=== PATIENT | female | born 1945 | race Caucasian/White ===

== ENCOUNTER → 2017-10-28 16:23 | Outpatient (CLI) | payer MEDICARE, SELFPAY ==
--- NOTE | 2017-10-28 16:31 | XR_ITS ---
XR knee LT 3V HISTORY: ITS.REASON: LT KNEE PAIN ORDERING PHYSICIAN: Josse Becerra MD PATIENT AGE: 72 years FINDINGS: Mild osteoarthritic changes are present involving all 3 compartments. No fracture or dislocation. Irregular sclerotic density is present involving the intramedullary region of the distal femur consistent with small bone infarction. IMPRESSION: Mild osteoarthritis of the left knee
== END ==
PROVIDERS: PCP Family Medicine; Visit Provider Family Medicine
DX: M25.562 Pain in left knee (principal)
CPT/HCPCS: 73562

== ENCOUNTER → 2018-03-29 10:32 | Outpatient (CLI) | payer MEDICARE, SELFPAY ==
--- NOTE | 2018-03-29 10:34 | MM_ITS ---
MM Dig screening mamm BI w/CAD ORDERING PHYSICIAN : Ward Gomez MD PATIENT AGE: 73 years GENDER: Female COMPARISON: Previous studies purged & no longer available [facility] Thus no previous studies for comparison . INDICATION: ITS.REASON: SCREENING. No hormones no new complaints. Family history. Paternal grandmother with breast cancer TECHNIQUE: Standard CC and MLO images were obtained. R2 CAD reviewed. CC nipple profile view both breast included FINDINGS: Low-density breast are less fatty replacement. No suspicious nor dominant mass either breast.. No architectural distortion No suspicious calcifications. . CAD computer review highlights no areas of concern either IMPRESSION: No areas of concern. Follow-up in one year. Low-density breast. Fatty replacement bilaterally with no suspicious findings. BI-RADS Category: 1 Negative RECOMMENDED FOLLOW-UP: 1YR 1 YEAR FOLLOW-UP (A letter has been sent to the patient regarding results of the study.)
== END ==
PROVIDERS: PCP Family Medicine; Visit Provider Family Medicine
DX: Z12.31 Encounter for screening mammogram for malignant neoplasm of breast (principal)
CPT/HCPCS: 77067

== ENCOUNTER → 2018-05-03 14:11 | Outpatient (CLI) | payer MEDICARE, SELFPAY ==
--- NOTE | 2018-05-03 14:12 | CA_ITS ---
PROCEDURE: 2-D M-mode and color Doppler study INDICATIONS FOR THE TEST: Chest pain COPD Heart Murmur Tobacco Smoking Palpitations Fatigue+ Syncope Edema Hypertension+Diabetes Mellitus Rheumatic Fever SOB+IRE[place] Obesity Hyperlipidemia+ Family History HD Additional History CAD PATIENT INFORMATION HEIGHT:61 WEIGHT:202 GENDER: Female B/P:145/66 2-D/M-MODE INTERPRETATION: 2-D MEASUREMENTS OBSERVED VALUES IN CMS Right Ventricular Dimension (RVDd) 2.1 Interventricular Septum (Thickness)(IVsd) 1.3 Left Ventricular Internal Dimensions(LVIDd) 4.9 Left Ventricular Posterior Wall (Thickness)(LVPWd) 1.2 Aortic Root 3.1 Aortic Cusp Separation 1.8 Left Atrial Dimensions (LAD) 3.9 2D 1. Left atrium is mildly enlarged, left ventricle is normal size, mild concentric left ventricular hypertrophy, visually estimated ejection fraction of 55% with no regional wall motion abnormality. 2. The right atrium and the ventricular normal size and contractility. 3. The aortic valve is minimally thickened and fibrosed. 4. The mitral valve has dense mitral annular calcification. 5. The tricuspid valve is grossly normal. 6. The pulmonic valve is poorly visualized. 7. No significant pericardial effusion noted. DOPPLER INTERROGATION: Doppler interrogation of the aortic, mitral and tricuspid valvular presence of mild mitral and tricuspid regurgitation, tricuspid regurgitation jet velocity is inadequate for calculation of the right ventricular systolic pressure, grade 2 diastolic dysfunction seen with tissue Doppler evidence of raised left atrial pressure. CONCLUSION: 1. Mildly enlarged left atrium, normal left ventricular size, mild concentric left ventricular hypertrophy, visually estimated ejection fraction 55% with no regional wall motion abnormality, grade 2 diastolic dysfunction seen with tissue Doppler evidence of raised left atrial pressure. 2. Mild mitral and tricuspid regurgitation 3. No significant pericardial effusion noted.
== END ==
PROVIDERS: PCP Family Medicine; Visit Provider Internal Medicine
DX: R94.31 Abnormal electrocardiogram [ECG] [EKG] (principal)
CPT/HCPCS: 93306

== ENCOUNTER → 2019-05-04 13:06 | Outpatient (CLI) | payer MEDICARE, SELFPAY ==
--- NOTE | 2019-05-04 13:28 | MM_ITS ---
PROCEDURE: MM DIG SCREENING MAMM BI W/CAD Patient Age:74Y CLINICAL INDICATION: SCREE PRETTY COMPARISON: CHW CT CHEST W/ CONTRAST from 01/22/2016 [facility] MM Dig screening mamm BI w/CAD from 03/29/2018 TECHNIQUE: Standard CC and MLO images were obtained. R2 CAD reviewed. FINDINGS: Diffuse fatty replacement with minimal residual fibroglandular elements. Low-density breast bilaterally which lend themselves to mammography evaluation/screening. No dominant nor suspicious mass. No suspicious calcifications. No architectural distortion: No significant change since prior studies. CAD computer review highlights no areas of concern either.. Bilateral follow-up 1 year recommended. IMPRESSION: Stable/negative bilateral mammogram. Bilateral follow-up1 year recommended Diffuse fatty replacement low-density breast. BI-RAD Category: 1 Negative FOLLOW-UP: 1YR 1 Year Follow-up (A letter has been sent to the patient regarding results of the study.) Dictated by: Deuce Morales MD 05/07/2019 14:27 Electronically signed by Deuce Morales MD in [place] 05/07/2019 14:27
== END ==
PROVIDERS: PCP Family Medicine; Visit Provider Family Medicine
DX: Z12.31 Encounter for screening mammogram for malignant neoplasm of breast (principal)
CPT/HCPCS: 77067

== ENCOUNTER → 2020-02-13 12:40 | Outpatient (CLI) | payer MEDICARE, SELFPAY ==
--- NOTE | 2020-02-13 12:49 | XR_ITS ---
PROCEDURE: XR DEXA AXIAL SKELETON CLINICAL HISTORY: OSTEOPENIA COMPARISON: No exams were available for comparison FINDINGS: The right hip BMD is 0.662 with a t-score of -1.7. The left hip BMD is 0.674 with a t-score of -1.6. The lumbar spine BMD is 0.932 with a t-score of -1.0. IMPRESSION: This patient is considered osteopenic according to the World Health Organization criteria. Bone density is between 10 and 25 percent below young normal . Fracture risk is moderate. Treatment is advised. Based on these results of follow-up exam is recommended in 2 years Dictated by: Arjun Hester MD 02/13/2020 21:18 Arjun Hester MD in [place] 02/14/2020 08:55
== END ==
PROVIDERS: PCP Family Medicine; Visit Provider Family Medicine
DX: M85.89 Other specified disorders of bone density and structure, multiple sites (principal)
CPT/HCPCS: 77080

== ENCOUNTER → 2020-10-24 12:49 | Outpatient (CLI) | payer MEDICARE, SELFPAY ==
--- NOTE | 2020-10-24 12:55 | MM_ITS ---
PROCEDURE INFORMATION: Exam: MG Screening 3D Mammography Exam date and time: 10/24/2020 12:55 PM Age: 75 years old Clinical indication: Encounter for screening mammogram for malignant neoplasm of breast TECHNIQUE: Imaging protocol: Screening tomosynthesis and 2D mammography including computer-aided detection (CAD) when performed. COMPARISON: 1. MG MM DIG SCREENING MAMM BI W/CAD 05/04/2019 1:44 PM 2. MG [facility] MM Dig screening mamm BI w/CAD 03/29/2018 11:05 AM FINDINGS: MAMMOGRAPHY: Breast composition: The breast tissue is composed of scattered areas of fibroglandular density. Mass: None. Architectural distortion: None. Calcifications: No suspicious calcifications. Asymmetric density: None. Skin thickening: None. Axillary adenopathy: None. IMPRESSION: No mammographic evidence of malignancy. Annual screening is recommended unless otherwise clinically indicated. ASSESSMENT: BI-RADS Category 1: Negative
== END ==
PROVIDERS: PCP Family Medicine; Visit Provider Family Medicine
DX: Z12.31 Encounter for screening mammogram for malignant neoplasm of breast (principal)
CPT/HCPCS: 77063; 77067

== ENCOUNTER 2021-01-31 15:22 | Emergency (ER) | payer MEDICARE, SELFPAY ==
[2021-01-31 15:25] VITALS: BP 136/71; PULSE 61; RESP 17; TEMP 36.6; O2SAT 97; BMI 33.0
--- NOTE | 2021-01-31 16:27 | HMH.EDUTC ---
[facility] Clinical Impression: Exposure to COVID-19 virus Disposition: Home, Self-Care Condition on Discharge: Good Instructions: Preventing the Spread of Coronavirus Discharge Instructions Additional Instructions: You have been tested for COVID19. Please isolate yourself as if you are positive until results received. Referrals: Ward Gomez MD [Primary Care Provider] - Time of Disposition: 16:36 Medical Decision Making - Jeffery Inquiry Pt receiving controlled substance: No Vital Signs: 01/31/21 15:25 Temperature 97.8 F Temperature Source Oral Pulse Rate [Left Radial] 61 Respiratory Rate 17 Blood Pressure [Right Arm] 136/71 Blood Pressure Mean [Right Arm] 92 Blood Pressure Source [Right Arm] Automatic Cuff Blood Pressure Position [Right Arm] Sitting 02 Sat by Pulse Oximetry 97 Oxygen Delivery Method Room Air Orders (Tests/Meds): ORDERS Category Date Time Status Covid-19 Nasal PCR ([facility]) Routine Lab 01/31/21 16:16 Ordered [facility] [place] - General Stated complaint: covid test,cough.runny nose Time Seen by Provider: 01/31/21 16:27 Mode of Arrival: Ambulatory Source of Information: Patient Limitations: No Limitations Description of Symptoms (Recalled from Triage Doc. by RN): covid test, exposed last week HEENT Symptoms (Recalled from RN notes): No Resp Symptoms (Recalled from RN notes): No Skin Symptoms (Recalled from RN notes): No MS Symptoms (Recalled from RN notes): No Functional Status (Recalled from RN notes): wnl - History of Present Illness Provider Complaint: Daughter tested positive for COVID19 5 days ago. She has fever, runny nose, cough X 2 days. No vomiting or diarrhea. She has been vaccinated Onset (ago): day(s) (2) Relieving factors: none Exacerbating factors: none Associated symptoms: cough, fever/chills Treatments prior to arrival: none - Related Data Home Medications Medication Instructions Recorded Confirmed fluticasone propionate 50 1 spray INTRANASAL BID PRN 10/10/17 12/02/20 mcg/actuation nasal spray,suspension levocetirizine 5 mg tablet 5 mg PO QHS 10/10/17 12/02/20 aspirin 81 mg tablet,delayed 81 mg PO DAILY tab 10/11/17 12/02/20 release levothyroxine 112 mcg tablet 112 mcg PO DAILY tab 10/11/17 12/02/20 mesalamine 1.2 gram tablet,delayed 2.4 g PO DAILY tab 10/11/17 12/02/20 release albuterol sulfate 90 mcg/actuation 1 puff INHALATION Q6H PRN 04/25/18 12/02/20 aerosol inhaler loratadine 10 mg tablet 10 mg PO DAILY PRN tab 04/25/18 12/02/20 polyethylene glycol 3350 17 17 g PO DAILY PRN g 04/25/18 12/02/20 gram/dose oral powder infliximab 100 mg intravenous IV Q8W each 10/24/18 12/02/20 solution sertraline 50 mg tablet 50 mg PO DAILY tab 12/04/19 12/02/20 Previous Rx's Medication Instructions Recorded losartan 50 mg tablet 50 mg PO BID #180 tab 11/10/20 atorvastatin 10 mg tablet See Rx Instructions .ROUTE 01/23/21 .COMPLEX #90 tab diltiazem HCl 120 mg tablet See Rx Instructions .ROUTE 01/23/21 .COMPLEX #90 tab hydrochlorothiazide 25 mg tablet See Rx Instructions .ROUTE 01/23/21 .COMPLEX #90 tab Allergies Allergy/AdvReac Type Severity Reaction Status Date / Time No Known Allergies Allergy Verified 12/02/20 10:43 - Worker's Comp Is this a Worker's Comp case?: No [facility] History - Hepatitis A Screen Drug use history?: No High risk sexual behaviors?: No History of sexually transmitted infection?: No Currently employed?: No Childcare worker?: No Do you have indoor plumbing?: Yes Do you have electricity?: Yes Attestation statement:: This patient has been screened for Hepatitis A risk factors. I have reviewed the patient's past medical history: Yes Medical History: Reports:: Coronary Artery Disease, Hyperlipidemia, Hypertension Other Medical History: Reports: Hypothyroidism Laterality Cases: Bilateral: Tonsillectomy Other Surgeries: Yes: Cholecystectomy, Hysterectomy-Total - Social Histor
[2021-01-31 16:41] VITALS: BP 136/71; PULSE 61; RESP 17; TEMP 36.6; O2SAT 97
--- NOTE | 2021-02-01 10:06 | PC.NURSE ---
pt notified of covid test results
== END 2021-01-31 16:44 | disposition home or self-care (01) ==
PROVIDERS: Emergency Provider Physician Assistant; PCP Family Medicine
DX: U07.1 COVID-19 (principal); I10 Essential (primary) hypertension; E78.5 Hyperlipidemia, unspecified; I25.10 Atherosclerotic heart disease of native coronary artery without angina pectoris; E03.9 Hypothyroidism, unspecified; Z87.891 Personal history of nicotine dependence; Z79.899 Other long term (current) drug therapy
CPT/HCPCS: G0463; 99202; U0003

== ENCOUNTER 2021-10-30 13:42 | Emergency (ER) | payer MEDICARE, SELFPAY ==
--- NOTE | 2021-10-30 14:05 | XR_ITS ---
FINAL REPORT CLINICAL HISTORY: injury, pain FINDINGS: AP, oblique, and lateral views of the left wrist were obtained. There is no prior exam for comparison. There is an intra-articular comminuted fracture of the distal radius that is minimally displaced. There is an ulnar styloid process fracture. The bones are osteopenic. There is multi joint degenerative disease and soft tissue edema. IMPRESSION: Intra-articular comminuted fracture of the distal radius, minimally-displaced. Ulnar styloid process fracture. Reviewed, Interpreted and Dictated by Renee Crowley MD Transcribed by Alhaji Macias Authenticated by Renee Crowley MD on 10/30/2021 02:54:33 PM [facility]
--- NOTE | 2021-10-30 14:05 | XR_ITS ---
FINAL REPORT CLINICAL HISTORY: injury, pain FINDINGS: AP and lateral views of the left forearm are obtained. There is no prior exam for comparison. There is intra-articular fracture of the distal radius, nondisplaced. The wrist and elbow are intact. There is soft tissue edema of the wrist. IMPRESSION: Intra-articular distal radius fracture. Reviewed, Interpreted and Dictated by Renee Crowley MD Transcribed by Alhaji Macias Authenticated by Renee Crowley MD on 10/30/2021 02:54:43 PM [facility]
[2021-10-30 14:22] VITALS: BP 133/53; PULSE 50; RESP 18; TEMP 36.4; O2SAT 100; BMI 32.5
[2021-10-30 14:25] VITALS: BP 133/53; PULSE 50; RESP 18; TEMP 36.4; O2SAT 100; BMI 32.8
--- NOTE | 2021-10-30 14:27 | HMH.EDUTC ---
[facility] Dis[place] Clinical Impression: Wrist fracture Qualifiers: Encounter type: initial encounter Fracture type: closed Laterality: left Qualified Code(s): S62.102A - Fracture of unspecified carpal bone, left wrist, initial encounter for closed fracture Disposition: Home, Self-Care Condition on Discharge: Good Instructions: How To Perform RICE (Rest, Ice, Compress, Elevate) Additional Instructions: *RICE, Rest the extremity, Ice 15-20 minutes 3-4 times daily, Compress- wear the ney wrap as discussed as much as possible to help reduce swelling and pain, Elevate the extremity when at rest *Orthoglass and sling is for support and help control swelling, Be sure that is not to tight but not to loose either *Elevate when resting *Ibuprofen 600 every 6-8 hours as needed for pain an inflammation. If need something more can take Tylenol in between doses of Ibuprofen to help Immediately follow up with your family doctor for new or worsening of symptoms, or no noticeable improvement over the next 3-5 days Call Orthopedic office and make appointment with Dr Roberts Return if needed Straight to ER if any life threatening symptoms Prescriptions: Ibuprofen [Ibuprofen 600mg Tablet] 600 mg PO Q6HP PRN #20 tab PRN Reason: Moderate Pain Transmission Status: Pending to [facility] Referrals: Ward Gomez MD [Primary Care Provider] - As needed Memo Roberts JR, MD [Physician] - As needed (call office for appointment) Time of Disposition: 15:12 Medical Decision Making - Jeffery Inquiry Pt receiving controlled substance: No Jeffery was queried for this patient: No Vital Signs: 10/30/21 14:22 10/30/21 14:25 Temperature 97.6 F 97.6 F Temperature Source Oral Oral Pulse Rate [Left] 50 L 50 L Respiratory Rate 18 18 Blood Pressure [Right Arm] 133/53 L 133/53 L Blood Pressure Mean [Right Arm] 79 79 02 Sat by Pulse Oximetry 100 100 - Radiology Data #1 Image(s): Wrist Image Reviewed: Yes I reviewed the patient's radiology image Distal radial fracture and fracture of the ulna Styloid #2 Image(s): Forearm Image Reviewed: Yes I reviewed the patient's radiology image Preliminary Findings: No Fracture Seen - Physician Consults Physician Consulted: Dr Roberts Time: 14:30 Reason -: Orthopedic Eval/Care Comment/Response: Spoke with Dr Roberts he advised place in sugar tong splint and have her follow up in office next week or with however patient decided to follow up with him in the clinic next week Medical Decision Narrative: Patient state that she is able to take Ibuprofen Radial pulses noted before and after orthoglass placement hand warm and pink H UTC HPI - General Stated complaint: ao fall 10/30, left wrist pain Time Seen by Provider: 10/30/21 14:27 Mode of Arrival: Ambulatory Source of Information: Patient Limitations: No Limitations Description of Symptoms (Recalled from Triage Doc. by RN): pt slipped and fell while going out to lunch with grandson - History of Present Illness Provider Complaint: Patient states that she was going out to eat with her grandson earlier when she slipped and fell landing on her left wrist States that she is having pain in her left wrist that hurts when she tries to move or bend it so she had her grandson bring her into the hospital - Related Data Home Medications Medication Instructions Recorded Confirmed fluticasone propionate 50 1 spray INTRANASAL BID PRN 10/10/17 06/02/21 mcg/actuation nasal spray,suspension levocetirizine 5 mg tablet 5 mg PO QHS 10/10/17 06/02/21 aspirin 81 mg tablet,delayed 81 mg PO DAILY tab 10/11/17 06/02/21 release levothyroxine 112 mcg tablet 112 mcg PO DAILY tab 10/11/17 06/02/21 mesalamine 1.2 gram tablet,delayed 2.4 g PO DAILY tab 10/11/17 06/02/21 release albuterol sulfate 90 mcg/actuation 1 puff INHALATION Q6H PRN 04/25/18 12/02/20 aerosol inhaler loratadine 10 mg tablet 10 mg PO DAILY PRN tab
[2021-10-30 15:12] VITALS: BP 130/65; PULSE 60; RESP 18; TEMP 36.4
== END 2021-10-30 15:21 | disposition home or self-care (01) ==
PROVIDERS: Emergency Provider Nurse Practitioner; PCP Family Medicine
DX: S62.102A Fracture of unspecified carpal bone, left wrist, initial encounter for closed fracture (principal); W19.XXXA Unspecified fall, initial encounter; I25.10 Atherosclerotic heart disease of native coronary artery without angina pectoris; E78.5 Hyperlipidemia, unspecified; I10 Essential (primary) hypertension
CPT/HCPCS: 29075; 73090; 73110; 99212; G0463

== ENCOUNTER → 2021-11-06 13:35 | Outpatient (CLI) | payer MEDICARE, SELFPAY ==
--- NOTE | 2021-11-06 13:39 | XR_ITS ---
FINAL REPORT CLINICAL HISTORY: wrist fx COMPARISON: October 30, 2021 FINDINGS: LEFT WRIST 3 views were obtained. There is a comminuted, impacted fracture of the distal radius. Fracture lines extend to the radiocarpal joint. There is dorsal displacement of the distal fracture fragments. There is also a fracture at the base of the ulnar styloid process. There is mild degenerative change. There is no soft tissue abnormality. IMPRESSION: Fractures as described, overall stable. Reviewed, Interpreted and Dictated by Ricky Devries III, MD Transcribed by Stephenie Aponte Authenticated by Ricky Devries III, MD on 11/06/2021 02:50:58 PM [facility]
== END ==
PROVIDERS: PCP Family Medicine; Visit Provider Orthopaedic Surgery
DX: S62.102A Fracture of unspecified carpal bone, left wrist, initial encounter for closed fracture (principal)
CPT/HCPCS: 73110

== ENCOUNTER → 2021-11-20 13:38 | Outpatient (CLI) | payer MEDICARE, SELFPAY ==
--- NOTE | 2021-11-20 13:52 | XR_ITS ---
FINAL REPORT CLINICAL HISTORY: wrist fx COMPARISON: November 06, 2021 FINDINGS: AP, oblique, and lateral views of the left wrist were obtained. There has been interval healing of the previously seen distal radial fracture. The fracture of the ulnar styloid process is unchanged. There is no new abnormality. The joint spaces are preserved. There continues to be soft tissue edema. IMPRESSION: 1. Interval healing of the distal radial fracture. 2. Ulnar styloid process fracture is unchanged. Reviewed, Interpreted and Dictated by Renee Crowley MD Transcribed by Stephenie Aponte Authenticated by Renee Crowley MD on 11/20/2021 03:39:[address] [facility]
== END ==
PROVIDERS: PCP Family Medicine; Visit Provider Orthopaedic Surgery
DX: S62.102A Fracture of unspecified carpal bone, left wrist, initial encounter for closed fracture (principal)
CPT/HCPCS: 73110

== ENCOUNTER → 2021-12-04 10:30 | Outpatient (CLI) | payer MEDICARE, SELFPAY ==
--- NOTE | 2021-12-04 10:35 | XR_ITS ---
FINAL REPORT CLINICAL HISTORY: Pt fell x 5wks ago, pain @ ulnar head. F/U for fracture COMPARISON: November 20, 2021 FINDINGS: LEFT WRIST Three views demonstrate a subacute comminuted impacted fracture of the radius. The bony alignment is stable. There is a fracture at the base of the ulnar styloid process. There is mild degenerative change. The soft tissues are unremarkable. IMPRESSION: Overall stable findings with no acute bony abnormality. Reviewed, Interpreted and Dictated by Ricky Devries III, MD Transcribed by Paty Arredondo Authenticated and . [facility]
== END ==
PROVIDERS: PCP Family Medicine; Visit Provider Orthopaedic Surgery
DX: S62.102A Fracture of unspecified carpal bone, left wrist, initial encounter for closed fracture (principal)
CPT/HCPCS: 73110

== ENCOUNTER 2022-01-19 10:00 | Outpatient (RCR) | payer MEDICARE, SELFPAY | END 2022-01-19 11:00 | disposition home or self-care (01) | LOC: OT 10:00 | PROVIDERS: PCP Family Medicine; Visit Provider Orthopaedic Surgery | DX: S62.102D Fracture of unspecified carpal bone, left wrist, subsequent encounter for fracture with routine healing (principal) | CPT/HCPCS: 97010; 97014; 97018; 97035; 97110; 97140; 97165; 97530; G0283 ==

== ENCOUNTER → 2022-01-22 08:56 | Outpatient (CLI) | payer MEDICARE, SELFPAY ==
--- NOTE | 2022-01-22 08:59 | XR_ITS ---
FINAL REPORT CLINICAL HISTORY: wrist fracture COMPARISON: December 04, 2021 FINDINGS: AP, oblique, and lateral views of the left wrist were obtained. There is been interval healing of the distal radius fracture. There is an ununited fracture of the ulnar styloid process, unchanged. There is degenerative joint disease and osteopenia. There is persistent soft tissue edema. IMPRESSION: Healing distal radius fracture. Ununited ulnar styloid process fracture. Reviewed, Interpreted and Dictated by Renee Crowley MD Transcribed by Alhaji Macias Authenticated and [facility]
== END ==
PROVIDERS: PCP Family Medicine; Visit Provider Orthopaedic Surgery
DX: S62.102A Fracture of unspecified carpal bone, left wrist, initial encounter for closed fracture (principal)
CPT/HCPCS: 73110

== ENCOUNTER → 2022-04-02 09:41 | Outpatient (CLI) | payer MEDICARE, SELFPAY ==
--- NOTE | 2022-04-02 09:48 | XR_ITS ---
FINAL REPORT CLINICAL HISTORY: wrist fracture follow up Reviewed, Interpreted and Dictated by Ricky Devries III, MD Transcribed by Esmer Alegre Authenticated and [facility]
== END ==
PROVIDERS: PCP Family Medicine; Visit Provider Orthopaedic Surgery
DX: S62.102A Fracture of unspecified carpal bone, left wrist, initial encounter for closed fracture (principal)
CPT/HCPCS: 73110

== ENCOUNTER → 2022-07-09 11:42 | Outpatient (CLI) | payer MEDICARE, SELFPAY ==
[2022-07-09 18:38] LABS: Alanine Aminotransferase 12 U/L (12-78); Albumin/Globulin Ratio 1.3 (1.1-1.8); Alkaline Phosphatase 113 U/L (38-126); Anion Gap 10.8 mEq/L (5-15); Aspartate Amino Transferase 23 U/L (14-36); Bilirubin,Total 0.5 mg/dl (0.2-1.3); Blood Urea Nitrogen 11 mg/dl (7-17); Calcium 9.2 mg/dl (8.4-10.2); Carbon Dioxide 28 mmol/L (22.0-30.0); Chloride 107 mmol/L (98-107); Estimated Glomerular Filt Rate 69 ml/min (>60); GFR (African American) 84 ML/MIN (>60); Glucose 86 mg/dl (74-100); Potassium 3.8 mmoL/L (3.5-5.1); Sodium 142 mmol/L (136-145)
[2022-07-09 19:08] LABS: Thyroid Stimulating Hormone 3.27 uIU/mL (0.465-4.68)
== END ==
PROVIDERS: PCP Family Medicine; Visit Provider Family Medicine
DX: I10 Essential (primary) hypertension (principal); E03.9 Hypothyroidism, unspecified
CPT/HCPCS: 80053; 84443

== ENCOUNTER → 2022-07-13 14:34 | Outpatient (CLI) | payer MEDICARE, SELFPAY | PROVIDERS: PCP Family Medicine; Visit Provider Family Medicine | DX: Z86.73 Personal history of transient ischemic attack (TIA), and cerebral infarction without residual deficits (principal) | CPT/HCPCS: 93225; 93226 ==

== ENCOUNTER → 2022-08-11 10:26 | Outpatient (CLI) | payer MEDICARE, SELFPAY | PROVIDERS: PCP Family Medicine; Visit Provider Physician Assistant | DX: E78.2 Mixed hyperlipidemia (principal); I10 Essential (primary) hypertension; I25.10 Atherosclerotic heart disease of native coronary artery without angina pectoris; R00.1 Bradycardia, unspecified; R06.02 Shortness of breath; R94.31 Abnormal electrocardiogram [ECG] [EKG]; Z86.73 Personal history of transient ischemic attack (TIA), and cerebral infarction without residual deficits | CPT/HCPCS: 93270 ==

== ENCOUNTER → 2022-09-03 09:32 | Outpatient (CLI) | payer MEDICARE, SELFPAY ==
--- NOTE | 2022-09-03 09:39 | XR_ITS ---
FINAL REPORT CLINICAL HISTORY: Left wrist pain COMPARISON: 04/02/2022 FINDINGS: LEFT WRIST Three views demonstrate a chronic fracture of the distal radius and ulnar styloid process. No acute fracture or dislocation is seen. There are moderate degenerative changes at the radial aspect of the wrist. Soft tissues are without acute abnormality. IMPRESSION: No acute bony abnormality. Reviewed, Interpreted and Dictated by Ricky Devries III, MD Transcribed by Sharon Saeed Authenticated and . [facility]
== END ==
PROVIDERS: PCP Family Medicine; Visit Provider Orthopaedic Surgery
DX: S62.102A Fracture of unspecified carpal bone, left wrist, initial encounter for closed fracture (principal)
CPT/HCPCS: 73110

== ENCOUNTER → 2022-10-12 06:00 | Outpatient (CLI) | payer MEDICARE, SELFPAY | PROVIDERS: PCP Family Medicine; Visit Provider Nurse Practitioner Family | DX: I25.10 Atherosclerotic heart disease of native coronary artery without angina pectoris (principal); I47.20 Ventricular tachycardia, unspecified; R06.02 Shortness of breath | CPT/HCPCS: 78452; 93017; A9502 ==

== ENCOUNTER → 2023-02-22 11:00 | Outpatient (CLI) | payer MEDICARE, SELFPAY ==
[2023-02-22 22:16] LABS: Alanine Aminotransferase 18 U/L (12-78); Albumin Level 3.8 g/dl (3.5-5.0); Albumin/Globulin Ratio 1.1 (1.1-1.8); Alkaline Phosphatase 111 U/L (38-126); Anion Gap 12.6 mEq/L (5-15); Aspartate Amino Transferase 27 U/L (14-36); Bilirubin,Total 0.3 mg/dl (0.2-1.3); Blood Urea Nitrogen 18 mg/dl (7-17); Calcium 9.5 mg/dl (8.4-10.2); Carbon Dioxide 35 mmol/L (22.0-30.0); Chloride 98 mmol/L (98-107); Estimated Glomerular Filt Rate 61 ml/min (>60); GFR (African American) 73 ML/MIN (>60); Globulin 3.4 g/dL (1.3-3.2); Glucose 94 mg/dl (74-100); Potassium 3.6 mmoL/L (3.5-5.1); Sodium 142 mmol/L (136-145); Total Protein,Serum 7.2 g/dl (6.3-8.2)
[2023-02-22 22:26] LABS: Basophils % 0.3 % (0.1-2.0); Eosinophils # 0.1 K/mm3 (0.0-0.4); Hematocrit 43.3 % (37.0-47.0); Hemoglobin 13.7 g/dL (12.2-16.2); Lymphocytes # 2.2 K/mm3 (0.7-4.5); Lymphocytes % 24.9 % (10-50); Mean Corpuscular HGB Conc 31.6 g/dL (31.8-35.4); Mean Corpuscular Hemoglobin 29.4 pg (27.0-31.2); Mean Corpuscular Volume 92.8 fl (81-99); Mean Platelet Volume 10.4 fl (7.4-10.4); Monocytes # 0.7 K/mm3 (0.1-1.0); Monocytes % 7.6 % (1.7-9.3); Neutrophils # 5.8 K/mm3 (1.8-7.8); Neutrophils % 66.2 % (37.0-80.0); Platelet Count 447 K/mm3 (142-424); Red Blood Count 4.67 M/mm3 (4.20-5.40); Red Cell Distribution Width 13.6 % (11.5-17.5); White Blood Count 8.8 K/mm3 (4.8-10.8)
[2023-02-22 22:47] LABS: Thyroid Stimulating Hormone 0.84 uIU/mL (0.465-4.68)
== END ==
PROVIDERS: PCP Family Medicine; Visit Provider Family Medicine
DX: E03.9 Hypothyroidism, unspecified (principal); K62.4 Stenosis of anus and rectum; I25.10 Atherosclerotic heart disease of native coronary artery without angina pectoris
CPT/HCPCS: 80053; 84443; 85025

== ENCOUNTER → 2023-03-02 11:03 | Outpatient (CLI) | payer MEDICARE, SELFPAY ==
[2023-03-02 12:08] LABS: Chloride 103 mmol/L (98-107); Sodium 139 mmol/L (136-145)
[2023-03-02 12:10] LABS: Alanine Aminotransferase 20 U/L (12-78); Aspartate Amino Transferase 27 U/L (14-36); Bilirubin,Unconjugated 0.3 mg/dL (0.0-1.1); Blood Urea Nitrogen 20 mg/dl (7-17); Estimated Glomerular Filt Rate 48 ml/min (>60); GFR (African American) 58 ML/MIN (>60)
[2023-03-02 12:11] LABS: Albumin Level 3.7 g/dl (3.5-5.0); Alkaline Phosphatase 120 U/L (38-126); Bilirubin,Direct 0.2 mg/dl (0.0-0.4); Bilirubin,Indirect 0.3 mg/dL (0.0-0.9); Bilirubin,Total 0.5 mg/dl (0.2-1.3); Calcium 9.8 mg/dl (8.4-10.2); Carbon Dioxide 27 mmol/L (22.0-30.0); Chol/HDL Ratio 1.7 (1-3.5); Cholesterol 139 mg/dl (140-200); Glucose 96 mg/dl (74-100); HDL Cholesterol 84 mg/dl (40-60); Total Protein,Serum 6.9 g/dl (6.3-8.2); Triglycerides 84 mg/dl (30-150); VLDL Cholesterol 17 mg/dL (0-40)
[2023-03-02 12:23] LABS: Direct LDL Cholesterol 41.01 mg/dL (100-129)
== END ==
PROVIDERS: PCP Family Medicine; Visit Provider Nurse Practitioner
DX: E78.5 Hyperlipidemia, unspecified (principal); I10 Essential (primary) hypertension; I25.10 Atherosclerotic heart disease of native coronary artery without angina pectoris; Z86.73 Personal history of transient ischemic attack (TIA), and cerebral infarction without residual deficits
CPT/HCPCS: 36415; 80048; 80061; 80076

== ENCOUNTER 2023-08-02 09:57 | Outpatient (CLI) | payer MEDICARE, SELFPAY ==
--- NOTE | 2023-08-02 10:05 | XR_ITS ---
FINAL REPORT CLINICAL HISTORY: left knee pain COMPARISON: None FINDINGS: Three views of the left knee reveal no evidence of fracture or dislocation. The bony alignment is normal. Mild degenerative changes present. There is a small sclerotic focus in the distal femur that is nonspecific but may represent an enchondroma or a bone infarct. There is no evidence of joint effusion. No localized soft tissue abnormality is seen. IMPRESSION: Mild degenerative change. Small sclerotic focus in the distal femur, nonspecific, but likely an enchondroma or bone infarct. Reviewed, Interpreted and Dictated by Ricky Devries III, MD Transcribed by Kathya Man Authenticated and [facility]
== END 2023-08-02 23:59 ==
PROVIDERS: PCP Family Medicine; Visit Provider Nurse Practitioner
DX: M25.562 Pain in left knee (principal)
CPT/HCPCS: 73562

== ENCOUNTER 2023-08-16 19:17 | Outpatient (CLI) | payer MEDICARE, SELFPAY ==
[2023-08-16 19:39] LABS: Basophils % 0.3 % (0.1-2.0); Eosinophils # 0.2 K/mm3 (0.0-0.4); Eosinophils % 1.3 % (0.1-12.0); Hematocrit 42.3 % (37.0-47.0); Hemoglobin 13.6 g/dL (12.2-16.2); Lymphocytes # 2.6 K/mm3 (0.7-4.5); Lymphocytes % 23.4 % (10-50); Mean Corpuscular HGB Conc 32.1 g/dL (31.8-35.4); Mean Corpuscular Hemoglobin 30.2 pg (27.0-31.2); Mean Corpuscular Volume 93.9 fl (81-99); Mean Platelet Volume 9.3 fl (7.4-10.4); Monocytes # 0.9 K/mm3 (0.1-1.0); Monocytes % 8.3 % (1.7-9.3); Neutrophils # 7.4 K/mm3 (1.8-7.8); Neutrophils % 66.6 % (37.0-80.0); Platelet Count 483 K/mm3 (142-424); Red Cell Distribution Width 13.3 % (11.5-17.5); White Blood Count 11.1 K/mm3 (4.8-10.8)
[2023-08-16 19:48] LABS: Alanine Aminotransferase 21 U/L (12-78); Albumin Level 4.1 g/dl (3.5-5.0); Albumin/Globulin Ratio 1.3 (1.1-1.8); Alkaline Phosphatase 110 U/L (38-126); Anion Gap 8.9 mEq/L (5-15); Aspartate Amino Transferase 28 U/L (14-36); Bilirubin,Total 0.5 mg/dl (0.2-1.3); Blood Urea Nitrogen 16 mg/dl (7-17); Calcium 9.8 mg/dl (8.4-10.2); Carbon Dioxide 31 mmol/L (22.0-30.0); Chloride 106 mmol/L (98-107); Estimated Glomerular Filt Rate 60 ml/min (>60); GFR (African American) 73 ML/MIN (>60); Globulin 3.2 g/dL (1.3-3.2); Glucose 92 mg/dl (74-100); Potassium 4.9 mmoL/L (3.5-5.1); Sodium 141 mmol/L (136-145); Total Protein,Serum 7.3 g/dl (6.3-8.2)
== END 2023-08-16 23:59 ==
LOC: LAB.DROPOF 19:17
PROVIDERS: PCP Family Medicine; Visit Provider Family Medicine
DX: R79.89 Other specified abnormal findings of blood chemistry (principal); I10 Essential (primary) hypertension; Z79.899 Other long term (current) drug therapy
CPT/HCPCS: 80053; 85025

== ENCOUNTER 2023-09-13 12:43 | Outpatient (CLI) | payer MEDICARE, SELFPAY ==
--- NOTE | 2023-09-13 12:44 | CA_ITS ---
APPROVED REPORT EXAM: Comprehensive 2D, Doppler, and color-flow Echocardiogram Childcare Aide: Khushboo Clark RVT Ht: 4 ft 1 in Wt: 159lbs BSA: 1.46 BP: 125/55 mmHg Indications: MR,CAD,TACHYCARDIA,HLD,HTN 2D Dimensions LA Volume 70.40 mL LA Volume Index 48.22 mL/m2 (M/F) 16-34 M-Mode Dimensions RVDd 2.00 cm (0.9-2.6) LA Diam 3.46 cm (1.9-4.0) LVDd 4.90 cm (3.5-5.7) LVDs 2.75 cm (3.5-5.7) IVSd 1.39 cm (0.6-1.1) PWd 0.72 cm (0.6-1.1) EF (Teich) 74.90% FS 43.90% EDV (Teich) 112.80 mL TAPSE 1.95 (<1.7) ESV (Teich) 28.30 mL LV Diastology E Decel Time 217 (160-240 msec) E/A Ratio 2.0 Aortic Valve MINGO Index 1.61 cm2/m2 AoV Peak Yamil. 135.0 (50-130 cm/s) AO Peak GR. 7.30 mmHg AO Mean GR. 3.80 (<5 mmHg) AO VTI 30.0 (18-25 cm) MINGO (VTI) 2.41 (2.5-4.5 cm2) Mitral Valve MV E Max Yamil. 133.0 (40-130 cm/s) MV A Velocity 66.0 (40-130 cm/s) E/A Ratio 2.00 MV PHT 63.0 ms Pulmonary Valve PV Peak Velocity 83.0 (50-150 cm/s) Tricuspid Valve TR P. Velocity 280.00 cm/s RAP Estimate 10.00 mmHg RVSP 41.40 mmHg Left Ventricle The left ventricle is normal size. The left ventricular systolic function is normal. The left ventricular ejection fraction is within the normal range. There is increased LV wall thickness. There is normal LV segmental wall motion. Diastolic function is indeterminate. LVEF is 55%. Right Ventricle The right ventricle is normal size. The right ventricular systolic function is normal. Atria Left atrium is moderately dilated. Right atrium is mildly dilated. There is no Doppler evidence of interatrial shunt. Aortic Valve The aortic valve is mildly thickened. There is no aortic valvular stenosis. No aortic regurgitation is present. Mitral Valve There is mild mitral annular calcification. The mitral valve leaflets are mildly thickened. No evidence of mitral valve stenosis. Mild mitral regurgitation. Tricuspid Valve The tricuspid valve leaflets are thin and pliable. Mild tricuspid regurgitation. RVSP is 25-30 mmHg. Pulmonic Valve The pulmonary valve is normal in structure. Trace pulmonic regurgitation. Great Vessels The aortic root is normal in size. The ascending aorta is not well-visualized. IVC is normal in size and collapses >50% with inspiration. Pericardium There is no pericardial effusion. Other Information Study Quality: Fair Conclusion Normal biventricular systolic function. Biatrial dilation. Mild MR, mild TR. Electronically signed by : Cecille Meza MD 09/14/2023 12:41:22
== END 2023-09-13 23:59 ==
LOC: RT 12:44
PROVIDERS: PCP Family Medicine; Visit Provider Nurse Practitioner
DX: I34.0 Nonrheumatic mitral (valve) insufficiency (principal); I07.1 Rheumatic tricuspid insufficiency; I25.10 Atherosclerotic heart disease of native coronary artery without angina pectoris; I11.9 Hypertensive heart disease without heart failure; Z87.891 Personal history of nicotine dependence
CPT/HCPCS: 93306

== ENCOUNTER 2023-11-13 09:29 | Emergency (ER) | payer MEDICARE, SELFPAY ==
[2023-11-13 10:00] VITALS: BP 119/59; PULSE 51; RESP 20; TEMP 36.8; O2SAT 98; BMI 31.8
--- NOTE | 2023-11-13 10:30 | EXP.UTC ---
Discharge Plan Disposition Patient Disposition: Home, Self-Care Condition: Good Prescriptions Prescriptions: New prednisone 10 mg tablet 10 mg PO DIRECTED 9 Days Qty: 21 0RF Rx Instructions: Take 4 tablets daily for 3 days, then take 2 tablets daily for 3 days, then take 1 tablet daily for 3 days, then stop. No Action docusate sodium 100 mg capsule 100 mg PO DAILY Qty: 60 2RF bisoprolol fumarate 5 mg tablet 2.5 mg PO DAILY Qty: 90 1RF levothyroxine 112 mcg tablet See Rx Instructions .ROUTE .COMPLEX Qty: 90 2RF Dose Instruction: TAKE 1 TABLET BY MOUTH EVERY DAY Rx Instructions: TAKE 1 TABLET BY MOUTH EVERY DAY losartan 50 mg tablet See Rx Instructions .ROUTE .COMPLEX Qty: 90 3RF Dose Instruction: TAKE 1 TABLET DAILY Rx Instructions: TAKE 1 TABLET DAILY hydrochlorothiazide 25 mg tablet See Rx Instructions .ROUTE .COMPLEX Qty: 90 3RF Dose Instruction: TAKE 1 TABLET EVERY MORNING Rx Instructions: TAKE 1 TABLET EVERY MORNING atorvastatin 80 mg tablet See Rx Instructions .ROUTE .COMPLEX Qty: 90 1RF Dose Instruction: TAKE 1 TABLET BY MOUTH EVERYDAY AT BEDTIME Rx Instructions: TAKE 1 TABLET BY MOUTH EVERYDAY AT BEDTIME aspirin 325 mg tablet See Rx Instructions .ROUTE .COMPLEX Qty: 90 0RF Dose Instruction: TAKE 1 TABLET BY MOUTH EVERY DAY Rx Instructions: TAKE 1 TABLET BY MOUTH EVERY DAY Referrals Follow up/Referrals: Ward Gomez MD [Primary Care Provider] - See instructions Activity Restrictions/Add. Instructions Additional Instructions/Restrictions: Don't start the oral steroids until tomorrow, since you had the steroid shot here today. Follow up with your regular doctor. Call Dr. Gomez's office in the morning to get an appointment to be seen there within the next 48 hours. GO TO THE ER FOR ANY WORSENING SYMPTOMS OR CONCERNS Clinical Impressions Clinical Impression: Facial swelling, Melkersson-Nunu syndrome Instructions Patient Instructions: Prednisone, Dexamethasone Injection, Edema Discharge ED Provider: Marcos Fofana [facility] General Stated complaint: rash on face Mode of Arrival: Ambulatory Source of Information: Patient Limitations: No Limitations Time Seen by Provider: 11/13/23 10:29 Description of Symptoms (Recalled from Triage Doc. by RN): PATIENT C/O SWELLING AND REDNESS TO FACE (NOSE, RIGHT CHEEK AREA, BELOW EYES) THAT STARTED 3 DAYS AGO. SHE STATES AREAS ARE SLIGHTLY ITCHY. HEENT Symptoms (Recalled from RN notes): Yes Resp Symptoms (Recalled from RN notes): No Skin Symptoms (Recalled from RN notes): Yes MS Symptoms (Recalled from RN notes): No Functional Status (Recalled from RN notes): WNL History of Present Illness Provider Complaint: She states that for the past 3 days she has had swelling and redness of her face (nose, right cheek, right lower eye lid). She denies any known exposure to any allergens. She denies any itching of the affected site. She does have tenderness of the area. She has a history of melkersson-nunu syndrome, but she states that it has never affected her this way. It has caused irritation and fissures of her tongue and swelling of her upper lip in the past though. She denies any symptoms inside her mouth. She denies any fever/chills/malaise. Related Data Previous Rx's Medication Instructions Recorded docusate sodium 100 mg capsule 100 mg PO DAILY #60 caps 11/23/22 bisoprolol fumarate 5 mg tablet 2.5 mg (1/2 x 5 mg) PO DAILY 03/25/23 rhythm #90 tabs levothyroxine 112 mcg tablet See Rx Instructions .Route 04/07/23 .COMPLEX #90 tabs losartan 50 mg tablet See Rx Instructions .Route 05/18/23 .COMPLEX #90 tabs hydrochlorothiazide 25 mg tablet See Rx Instructions .Route 07/12/23 .COMPLEX #90 tabs aspirin 325 mg tablet See Rx Instructions .Route 08/01/23 .COMPLEX #90 tabs atorvastatin 80 mg tablet See Rx Instructions .Route 08/01/23 .COMPLEX #90 tabs prednisone 10 mg tablet 10 mg PO DIRECTED 9 days #21 11/13/23 tabs Allergies Allergy/AdvReac Type Severity Reaction Status Date / Time No Known Allergies Allergy Verified 08/31/23 10:18 Worker's Comp Is this a Worker's Comp case?: No [facility] Disclaimer: The information contained in this section may have been updated after the patient was seen, as this information can be updated by other users. Medical History (Updated 11/13/23 @ 10:42 by Marcos Fofana APRN) Tricuspid regurgitation Mitral regurgitation Left knee pain Neuritis Ventricular tachycardia PSVT (paroxysmal supraventricular tachycardia) PVC (premature ventricular contraction) PAC (premature atrial contraction) Anal stenosis Hemorrhoids Acquired anal stenosis Crohn's disease Acquired hypothyroidism CVA (cerebral vascular accident) Wrist fracture SOB (shortness of breath) Bradycardia HLD (hyperlipidemia) HTN (hypertension) CAD (coronary artery disease) Surgical History (Updated 11/13/23 @ 10:12 by Lisbeth Marr RN) History of appendectomy History of carpal tunnel surgery History of hysterectomy History of cholecystectomy History of ankle surgery Family History Other Coronary artery disease Social History Smoking Status: Former smoker alcohol intake: current substance use type: denies use current occupational status: unemployed and retired Travel in the last 8 weeks: Inside the [place] ROS Obtained: Yes All systems reviewed & no additional complaints except as documented Constitutional Constitutional: Denies chills and Denies fever(s) Eyes Eyes: Reports as per HPI, Denies eye discharge and Reports other (swelling of right upper eye lid. ) ENT Ears, Nose, Mouth, and Throat: Denies dizziness, Denies otalgia and Denies sore throat Cardiovascular Cardiovascular: Denies chest pain Respiratory Respiratory: Denies shortness of breath, Denies chest congestion, Denies cough, Denies stridor and Denies wheezing Gastrointestinal Gastrointestingal: Denies nausea or vomiting Musculoskeletal Musculoskeletal: Reports system reviewed and no additional complaints, except as documented and Denies arthralgias Integumentary/Breasts Skin/Breast: Reports as per HPI, Reports redness and Reports rash Neurologic Neurologic: Denies dizziness and Denies paresthesias Allergic/Immunologic Allergic/Immunologic: Denies wheezing Physical Exam General General appearance: alert and in no apparent distress Head Head exam: atraumatic, normocephalic and normal inspection Eye Eye exam: Present PERRL, EOMI, periorbital swelling and other (lesion on upper eyelid. no vesicles noted) ENT ENT exam: Present normal exam, normal oropharynx, mucous membranes moist, TM's normal bilaterally and normal external ear exam Neck Neck exam: Present normal inspection, full ROM and trachea midline; Absent meningismus or lymphadenopathy Chest Chest inspection: Present normal inspection and symmetric chest wall rise; Absent tenderness Respiratory Respiratory exam: Present normal lung sounds bilaterally; Absent respiratory distress Cardiovascular Cardiovascular exam: Present regular rate and normal rhythm; Absent JVD Abdominal Exam Abdominal exam: Present soft and normal bowel sounds; Absent distention, tenderness or guarding Extremities Exam Extremities exam: Present normal inspection, full ROM and normal capillary refill; Absent calf tenderness Back Exam Back exam: Present normal inspection; Absent tenderness Neurological Exam Neurological exam: Present alert and oriented X3 Psychiatric Psychiatric exam: Present normal affect and normal mood Skin Skin exam: Present warm, dry, intact and normal color Lymphatic Lymphatic Findings: no adenopathy Medical Decision Making Medical Records Medical records reviewed: No I reviewed the patient's medical records. Jeffery Inquiry Pt receiving controlled substance: No Vital Signs: 11/13/23 10:00 Temperature 98.2 F Temperature Source Oral Pulse Rate [Right Brachial] 51 L Respiratory Rate 20 Blood Pressure [Right Arm] 119/59 L Blood Pressure Mean [Right Arm] 79 Blood Pressure Source [Right Arm] Automatic Cuff Blood Pressure Position [Right Arm] Sitting 02 Sat by Pulse Oximetry 98 Oxygen Delivery Method Room Air Medical Decision Narrative: Wound culture and shingles culture obtained from the lesion on her right upper eyelid were obtained and sent to lab.
[2023-11-13] MEDS: DEXAMETHASONE 4MG/ML 1ML VIAL 8 MG IM (10:50)
[2023-11-13 11:15] VITALS: BP 119/59; PULSE 51; RESP 20; TEMP 36.8; O2SAT 98
== END 2023-11-13 11:17 | disposition home or self-care (01) ==
PROVIDERS: Emergency Provider Nurse Practitioner Family; PCP Family Medicine
DX: G51.2 Melkersson's syndrome (principal); R22.0 Localized swelling, mass and lump, head
CPT/HCPCS: 96372; 99212; 99214; G0463

== ENCOUNTER 2023-11-28 11:50 | Outpatient (CLI) | payer MEDICARE, SELFPAY ==
[2023-11-28 18:08] LABS: Basophils # 0.1 K/mm3 (0-0.2); Basophils % 0.8 % (0.1-2.0); Eosinophils # 0.2 K/mm3 (0.0-0.4); Eosinophils % 2.1 % (0.1-12.0); Hematocrit 41.7 % (37.0-47.0); Lymphocytes # 2.1 K/mm3 (0.7-4.5); Lymphocytes % 19.2 % (10-50); Mean Corpuscular HGB Conc 31.1 g/dL (31.8-35.4); Mean Corpuscular Hemoglobin 30.2 pg (27.0-31.2); Mean Corpuscular Volume 97.2 fl (81-99); Mean Platelet Volume 9.5 fl (7.4-10.4); Monocytes # 0.8 K/mm3 (0.1-1.0); Monocytes % 7.4 % (1.7-9.3); Neutrophils # 7.9 K/mm3 (1.8-7.8); Neutrophils % 70.6 % (37.0-80.0); Platelet Count 482 K/mm3 (142-424); Red Cell Distribution Width 13.8 % (11.5-17.5); White Blood Count 11.2 K/mm3 (4.8-10.8)
[2023-11-28 18:32] LABS: Free T4 (Free Thyroxine) 2.11 ng/dl (0.78-2.19)
[2023-11-28 18:40] LABS: 25-OH Vitamin D, Total < 12.8 ng/mL (30-100)
[2023-11-28 20:05] LABS: Alanine Aminotransferase 26 U/L (12-78); Albumin Level 3.7 g/dl (3.5-5.0); Albumin/Globulin Ratio 1.2 (1.1-1.8); Alkaline Phosphatase 101 U/L (38-126); Anion Gap 11.5 mEq/L (5-15); Aspartate Amino Transferase 29 U/L (14-36); Bilirubin,Total 0.5 mg/dl (0.2-1.3); Blood Urea Nitrogen 14 mg/dl (7-17); Carbon Dioxide 30 mmol/L (22.0-30.0); Chloride 104 mmol/L (98-107); Estimated Glomerular Filt Rate 60 ml/min (>60); GFR (African American) 73 ML/MIN (>60); Glucose 88 mg/dl (74-100); Potassium 4.5 mmoL/L (3.5-5.1); Sodium 141 mmol/L (136-145); Total Protein,Serum 6.7 g/dl (6.3-8.2)
[2023-11-28 20:36] LABS: Thyroid Stimulating Hormone 0.81 uIU/mL (0.465-4.68)
[2023-11-28 20:55] LABS: Vitamin B12 280 pg/mL (239-931)
== END 2023-11-28 23:59 | disposition home or self-care (01) ==
LOC: LAB.DROPOF 11-30 11:50
PROVIDERS: PCP Nurse Practitioner; Visit Provider Nurse Practitioner
DX: E03.9 Hypothyroidism, unspecified (principal); K50.90 Crohn's disease, unspecified, without complications; R29.818 Other symptoms and signs involving the nervous system; E55.9 Vitamin D deficiency, unspecified; Z68.31 Body mass index [BMI] 31.0-31.9, adult
CPT/HCPCS: 80053; 82306; 82607; 84439; 84443; 85025

== ENCOUNTER 2023-12-06 15:03 | Outpatient (CLI) | payer MEDICARE, SELFPAY | END 2023-12-06 23:59 | disposition home or self-care (01) | LOC: RT 15:04 | PROVIDERS: PCP Family Medicine; Visit Provider Nurse Practitioner | DX: I49.3 Ventricular premature depolarization (principal); R29.818 Other symptoms and signs involving the nervous system; G51.2 Melkersson's syndrome; Z86.73 Personal history of transient ischemic attack (TIA), and cerebral infarction without residual deficits; R94.31 Abnormal electrocardiogram [ECG] [EKG]; I07.1 Rheumatic tricuspid insufficiency; I34.0 Nonrheumatic mitral (valve) insufficiency; I49.1 Atrial premature depolarization; I11.9 Hypertensive heart disease without heart failure; I25.10 Atherosclerotic heart disease of native coronary artery without angina pectoris; E78.2 Mixed hyperlipidemia; I47.10 Supraventricular tachycardia, unspecified | CPT/HCPCS: 93270 ==

== ENCOUNTER 2023-12-15 09:39 | Outpatient (CLI) | payer MEDICARE, SELFPAY ==
--- NOTE | 2023-12-15 09:40 | CA_ITS ---
APPROVED REPORT EXAM: Limited 2D Echocardiogram with b/s Tenter Feeder: Yi Anglin CRT Ht: 4 ft 11 in Wt: 157lbs BSA: 1.66 BP: 108/55 mmHg Indications: B/S FOR TIA Echo Enhancing Agent Indication: Rule out Shunt Agent(s) / Amount(s) Used: Agitated Saline 5 cc Comments: B/S ORDERED M-Mode Dimensions RVDd 1.91 cm (0.9-2.6) LA Diam 3.70 cm (1.9-4.0) LVDd 4.87 cm (3.5-5.7) LVDs 2.38 cm (3.5-5.7) IVSd 1.81 cm (0.6-1.1) PWd 1.07 cm (0.6-1.1) EF (Teich) 82.30% FS 51.10% EDV (Teich) 111.20 mL ESV (Teich) 19.70 mL Other Information Study Quality: Adequate Conclusion This is a limited TTE to evaluate for interatrial shunt in the setting of recent TIA. Limited windows were obtained. Agitated saline was administered during the study. There is no color Doppler evidence of interatrial shunt. Agitated saline administration at rest and with Valsalva demonstrates no evidence of interatrial shunt. Electronically signed by : Cecille Meza MD 12/17/2023 19:48:47
== END 2023-12-15 23:59 | disposition home or self-care (01) ==
LOC: RT 09:40
PROVIDERS: PCP Family Medicine; Visit Provider Nurse Practitioner
DX: R94.31 Abnormal electrocardiogram [ECG] [EKG] (principal); Z86.73 Personal history of transient ischemic attack (TIA), and cerebral infarction without residual deficits; I07.1 Rheumatic tricuspid insufficiency; I47.10 Supraventricular tachycardia, unspecified; I49.3 Ventricular premature depolarization; I49.1 Atrial premature depolarization; I11.9 Hypertensive heart disease without heart failure; I25.10 Atherosclerotic heart disease of native coronary artery without angina pectoris; E78.2 Mixed hyperlipidemia; G51.2 Melkersson's syndrome; R29.818 Other symptoms and signs involving the nervous system
CPT/HCPCS: 93308

== ENCOUNTER 2023-12-30 12:42 | Emergency (ER) | payer MEDICARE, SELFPAY ==
[2023-12-30] VITALS (8 sets, daily range): BP systolic 91–160; BP diastolic 46–98; PULSE 44–57; RESP 11–18; TEMP 36.6–36.8; O2SAT 96–99; BMI 31.5
--- NOTE | 2023-12-30 12:54 | ECG_ITS ---
APPROVED REPORT Exam: Resting ECG HR:51 bpm ECG Measurements Heart Rate 51 AXES IA 159 P 60 QRSd 94 QRS -43 QT 447 T 45 QTc 425 Conclusion SINUS BRADYCARDIA LEFT AXIS DEVIATION [QRS AXIS < -30] ABNORMAL ECG UNCONFIRMED REPORT Electronically signed by : Marcos Crowe, 12/30/2023 15:49:09
--- NOTE | 2023-12-30 13:01 | ED_ITS ---
Discharge Plan Disposition Patient Disposition: Home, Self-Care Prescriptions Prescriptions: No Action docusate sodium 100 mg capsule 100 mg PO DAILY Qty: 60 2RF fluticasone propionate 50 mcg/actuation spray,suspension 1 spray intranasal DAILY Rx Instructions: administer into each nostril bisoprolol fumarate 5 mg tablet 2.5 mg PO DAILY Qty: 90 1RF levothyroxine 112 mcg tablet See Rx Instructions .ROUTE .COMPLEX Qty: 90 2RF Dose Instruction: TAKE 1 TABLET BY MOUTH EVERY DAY Rx Instructions: TAKE 1 TABLET BY MOUTH EVERY DAY losartan 50 mg tablet See Rx Instructions .ROUTE .COMPLEX Qty: 90 3RF Dose Instruction: TAKE 1 TABLET DAILY Rx Instructions: TAKE 1 TABLET DAILY hydrochlorothiazide 25 mg tablet See Rx Instructions .ROUTE .COMPLEX Qty: 90 3RF Dose Instruction: TAKE 1 TABLET EVERY MORNING Rx Instructions: TAKE 1 TABLET EVERY MORNING atorvastatin 80 mg tablet See Rx Instructions .ROUTE .COMPLEX Qty: 90 1RF Dose Instruction: TAKE 1 TABLET BY MOUTH EVERYDAY AT BEDTIME Rx Instructions: TAKE 1 TABLET BY MOUTH EVERYDAY AT BEDTIME aspirin 325 mg tablet See Rx Instructions .ROUTE .COMPLEX Qty: 90 0RF Dose Instruction: TAKE 1 TABLET BY MOUTH EVERY DAY Rx Instructions: TAKE 1 TABLET BY MOUTH EVERY DAY Referrals Follow up/Referrals: Ward Gomez MD [Primary Care Provider] - See instructions Activity Restrictions/Add. Instructions Additional Instructions/Restrictions: No obvious discernible cause of your generalized weakness and abnormal sensations that you felt earlier today. No evidence of TIA or stroke or cardiovascular emergency however your bradycardia/slow heart rate may be the cause of your symptoms today I recommend that you hold your bisoprolol until discussed with your incendiary powder mixer. Additionally your screening thyroid function test were abnormal and I recommend that you follow-up with your primary care doctor to discuss titration of your levothyroxine if indicated. Thyroid dysfunction certainly could be the cause of your generalized malaise. You are otherwise optimized from a previous TIA standpoint. Clinical Impressions Clinical Impression: Generalized weakness, Bradycardia, Abnormal TSH Discharge ED Provider: Shalonda Crowe General Adult HPI General Chief complaint: Weakness Stated complaint: Elevated BP sent by Dr Kuhn Time Seen by Provider: 12/30/23 12:53 History of Present Illness HPI narrative: Patient is a 78-year-old female presenting today with feeling funny. She states that she was in her normal state of health got up walked her dog and started feeling funny like something was going on and generalized weakness and went to her primary care doctor. She was found to be hypertensive and sent to the emergency department. She does have a history of a stroke and had a TIA last month with focal symptoms of expressive aphasia that lasted about 15 minutes. She has not had any focal neurologic deficits at this time. Denies any headache denies any chest pain shortness of breath abdominal pain or any other symptoms. No nausea vomiting or diarrhea. Other than feeling funny she denies any other symptoms. Related Data Home Medications Medication Instructions Recorded Confirmed fluticasone propionate 50 1 spray intranasal DAILY 12/06/23 12/30/23 mcg/actuation nasal spray,suspension Previous Rx's Medication Instructions Recorded docusate sodium 100 mg capsule 100 mg PO DAILY #60 caps 11/23/22 bisoprolol fumarate 5 mg tablet 2.5 mg (1/2 x 5 mg) PO DAILY 03/25/23 rhythm #90 tabs levothyroxine 112 mcg tablet See Rx Instructions .Route 04/07/23 .COMPLEX #90 tabs losartan 50 mg tablet See Rx Instructions .Route 05/18/23 .COMPLEX #90 tabs hydrochlorothiazide 25 mg tablet See Rx Instructions .Route 07/12/23 .COMPLEX #90 tabs aspirin 325 mg tablet See Rx Instructions .Route 08/01/23 .COMPLEX #90 tabs atorvastatin 80 mg tablet See Rx Instructions .Route 08/01/23 .COMPLEX #90 tabs Allergies Allergy/AdvReac Type Severity Reaction Status Date / Time No Known Allergies Allergy Verified 12/30/23 10:00 [facility] Disclaimer: The information contained in this section may have been updated after the patient was seen, as this information can be updated by other users. Medical History Tricuspid regurgitation Mitral regurgitation Left knee pain Neuritis Ventricular tachycardia PSVT (paroxysmal supraventricular tachycardia) PVC (premature ventricular contraction) PAC (premature atrial contraction) Anal stenosis Hemorrhoids Acquired anal stenosis Refer to Dr. Potts, colorectal surgery. Crohn's disease Acquired hypothyroidism CVA (cerebral vascular accident) Wrist fracture SOB (shortness of breath) Bradycardia HLD (hyperlipidemia) HTN (hypertension) CAD (coronary artery disease) Surgical History History of appendectomy History of carpal tunnel surgery History of hysterectomy History of cholecystectomy History of ankle surgery Family History Other Coronary artery disease Social History Smoking Status: Never smoker alcohol intake: current substance use type: denies use current occupational status: unemployed and retired Travel in the last 8 weeks: Inside the [place] ROS Obtained: Yes All systems reviewed & no additional complaints except as documented Physical Exam General General appearance: alert and in no apparent distress Respiratory Respiratory exam: Present normal lung sounds bilaterally; Absent respiratory distress Cardiovascular Cardiovascular exam: Present regular rate and normal rhythm Abdominal Exam Abdominal exam: Present soft; Absent distention or tenderness Neurological Exam Neurological exam: Present alert, oriented X3, CN II-XII intact, normal gait and other (Normal finger-nose [id number] bilaterally); Absent motor sensory deficit Medical Decision Making Jeffery Inquiry Pt receiving controlled substance: No Vital Signs: 12/30/23 12:53 12/30/23 13:00 12/30/23 13:30 Temperature 97.9 F Temperature Source Oral Pulse Rate 49 L 47 L Pulse Rate [Left] 57 L Respiratory Rate 11 L 11 L 11 L Blood Pressure 91/67 L 117/54 L Blood Pressure [Right Arm] 160/98 H Blood Pressure Mean Blood Pressure Mean [Right Arm] 118 Blood Pressure Source [Right Arm] Automatic Cuff Blood Pressure Position [Right Arm] Sitting 02 Sat by Pulse Oximetry 97 98 99 Oxygen Delivery Method Room Air Room Air Room Air 12/30/23 14:01 12/30/23 14:30 Temperature Temperature Source Pulse Rate 44 L 48 L Pulse Rate [Left] Respiratory Rate 16 18 Blood Pressure 144/47 H 112/50 L Blood Pressure [Right Arm] Blood Pressure Mean 89 Blood Pressure Mean [Right Arm] Blood Pressure Source [Right Arm] Blood Pressure Position [Right Arm] 02 Sat by Pulse Oximetry 97 96 Oxygen Delivery Method Lab Data Lab results reviewed: Yes I reviewed the patient's lab results. Lab Results 12/30/23 12:51: WBC 9.3, RBC 4.37, Hgb 13.4, Hct 41.7, MCV 95.6, MCH 30.6, MCHC 32.0, RDW 13.7, Plt Count 418, MPV 8.9, Neut % (Auto) 59.7, Lymph % (Auto) 30.7, [place] % (Auto) 6.9, Eos % (Auto) 1.6, Baso % (Auto) 1.1, Neut # (Auto) 5.6, Lymph # (Auto) 2.9, [place] # (Auto) 0.6, Eos # (Auto) 0.2, Baso # (Auto) 0.1, Sodium 142, Potassium 3.3 L, Chloride 106, Carbon Dioxide 28, Anion Gap 11.3, BUN 12, Creatinine 0.90, Estimated Creat Clear 51, Estimated GFR 60, Est GFR ( Amer) 73, Glucose 90, Calcium 9.9, Phosphorus 3.6, Magnesium 2.0, Total Bilirubin 0.5, AST 36, ALT 26, Alkaline Phosphatase 102, Troponin I < 0.01, N T-Pro-B Natriuret Pep 1130 H, Total Protein 8.0, Albumin 4.4, Globulin 3.6 H, Albumin/Globulin Ratio 1.2, TSH 0.30 L 12/30/23 12:51 12/30/23 12:51 Orders (Tests/Meds): ED MEDICATIONS Discontinued Medications Generic Name Dose Route Start Last Admin Trade Name Freq PRN Reason Stop Dose Admin Lactated Ringer's 1,000 mls @ 999 mls/hr 12/30/23 13:15 12/30/23 13:13 Lactated Ringer's 1000 Ml Bag IV 12/30/23 14:15 999 mls/hr .Q1H1M ROB Administration ORDERS Category Date Time Status CXR --portable [XR chest portable] Stat Exams 12/30/23 13:04 Completed BNP [NT Pro Brain Natriuretic Pep.] Stat Lab 12/30/23 12:51 Completed CBC w/Auto Diff [Complete Blood Count Auto Diff] Stat Lab 12/30/23 12:51 Completed CMP [Comprehensive Metabolic Panel] Stat Lab 12/30/23 12:51 Completed Magnesium Stat Lab 12/30/23 12:51 Completed Phosphorous Stat Lab 12/30/23 12:51 Completed TSH [Thyroid Stimulating Hormone] Stat Lab 12/30/23 12:51 Completed Trop I [Troponin I] Stat Lab 12/30/23 12:51 Completed Troponin I Q3H Lab 12/30/23 16:15 Ordered Troponin I Q3H Lab 12/30/23 19:15 Ordered ECG Data Tracing #1: I reviewed this ECG and interpreted as documented below: Ventricular rate of 51 normal sinus rhythm no acute ischemic changes noted sinus bradycardia there is left axis deviation no high degree heart block Medical Decision Narrative: 78-year-old well-appearing female presenting today with generalized weakness and feeling funny. She has a nonfocal and normal neurologic exam currently. This is not consistent with TIA or stroke. She was mildly hypertensive which has improved significantly without any significant intervention at the moment. This is not consistent with endorgan damage regarding hypertensive emergencies. Will check metabolic testing give IV fluids and reassess. Reassessment 3:11 PM patient remains very stable feels somewhat better after IV fluids. Labs largely unremarkable aside from an abnormal TSH and potassium at the lower limits of normal. It is possible thyroid dysfunction may be contributing to her symptoms today and she is advised follow-up with primary care doctor regarding the abnormal TSH. She did have bradycardia which may also be the cause of her symptoms her heart rates been in the mid 40s which is abnormal for someone at rest. I have advised that she hold her bisoprolol which may help with some of the general malaise and fatigue that she is feeling. She is advised follow-up with primary care doctor. Specifically no evidence of TIA or stroke. I did review her most recent echoes which she had to open recently when she had a bubble study after the TIA which was unremarkable she also had a complete echo which was normal in August. He has a mildly elevated BNP may have some underlying structural heart disease but nothing significant with recent normal echo as I do not believe she has had a new or different event. I do not believe she needs serial troponins as acute coronary syndrome is very unlikely today. She will follow-up with cardiology regarding her beta-kady and her symptomatic bradycardia. She was reassured and agreeable to follow-up outpatient and return with any worsening symptoms. Critical Care Critical Care Time Critical Care Time: No
--- NOTE | 2023-12-30 13:04 | XR_ITS ---
FINAL REPORT CLINICAL HISTORY: dyspnea COMPARISON: 11/26/2023 FINDINGS: SINGLE-VIEW CHEST The heart size is normal. The mediastinum is normal. The lungs are clear. There is no pneumothorax. IMPRESSION: No acute cardiopulmonary process. Reviewed, Interpreted and Dictated by iRcky Devries III, MD Transcribed by Karon Ames Authenticated and [facility]
[2023-12-30 13:13] LABS: Basophils # 0.1 K/mm3 (0-0.2); Basophils % 1.1 % (0.1-2.0); Eosinophils # 0.2 K/mm3 (0.0-0.4); Eosinophils % 1.6 % (0.1-12.0); Hematocrit 41.7 % (37.0-47.0); Hemoglobin 13.4 g/dL (12.2-16.2); Lymphocytes # 2.9 K/mm3 (0.7-4.5); Lymphocytes % 30.7 % (10-50); Mean Corpuscular Hemoglobin 30.6 pg (27.0-31.2); Mean Corpuscular Volume 95.6 fl (81-99); Mean Platelet Volume 8.9 fl (7.4-10.4); Monocytes # 0.6 K/mm3 (0.1-1.0); Monocytes % 6.9 % (1.7-9.3); Neutrophils # 5.6 K/mm3 (1.8-7.8); Neutrophils % 59.7 % (37.0-80.0); Platelet Count 418 K/mm3 (142-424); Red Blood Count 4.37 M/mm3 (4.20-5.40); Red Cell Distribution Width 13.7 % (11.5-17.5); White Blood Count 9.3 K/mm3 (4.8-10.8)
[2023-12-30] MEDS: LACTATED RINGERS 1000ML 1,000 ML 999 ML IV (13:13)
[2023-12-30 13:26] LABS: Chloride 106 mmol/L (98-107); Potassium 3.3 mmoL/L (3.5-5.1); Sodium 142 mmol/L (136-145)
[2023-12-30 13:28] LABS: Alanine Aminotransferase 26 U/L (12-78); Aspartate Amino Transferase 36 U/L (14-36); Blood Urea Nitrogen 12 mg/dl (7-17); Creatinine Clearance Estimated 51 mL/min (50-200); Estimated Glomerular Filt Rate 60 ml/min (>60); GFR (African American) 73 ML/MIN (>60)
[2023-12-30 13:29] LABS: Albumin Level 4.4 g/dl (3.5-5.0); Albumin/Globulin Ratio 1.2 (1.1-1.8); Alkaline Phosphatase 102 U/L (38-126); Anion Gap 11.3 mEq/L (5-15); Bilirubin,Total 0.5 mg/dl (0.2-1.3); Calcium 9.9 mg/dl (8.4-10.2); Carbon Dioxide 28 mmol/L (22.0-30.0); Globulin 3.6 g/dL (1.3-3.2); Glucose 90 mg/dl (74-100); Phosphorous 3.6 mg/dl (2.5-4.5)
[2023-12-30 13:44] LABS: NT Pro Brain Natriuretic Pep. 1130 pg/mL (0-450)
[2023-12-30 13:45] LABS: Troponin I < 0.01 ng/ml (0.00-0.034)
--- NOTE | 2023-12-30 14:01 | PC.NURSE ---
I rounded on the pt and helped reposition her. no new complaints at this time. vss.
== END 2023-12-30 15:18 | disposition home or self-care (01) ==
PROVIDERS: Emergency Provider Student in an Organized Health Care Education/Training Program; PCP Family Medicine
DX: E87.6 Hypokalemia (principal); R00.1 Bradycardia, unspecified; R94.6 Abnormal results of thyroid function studies; R53.81 Other malaise; R53.1 Weakness; I10 Essential (primary) hypertension; E78.5 Hyperlipidemia, unspecified
CPT/HCPCS: 71045; 80053; 83735; 83880; 84100; 84443; 84484; 85025; 93005; 96360; 99284; J7120

== ENCOUNTER 2024-01-17 12:01 | Outpatient (CLI) | payer MEDICARE, SELFPAY ==
[2024-01-17 18:45] LABS: Anion Gap 7.4 mEq/L (5-15); Blood Urea Nitrogen 13 mg/dl (7-17); Calcium 9.6 mg/dl (8.4-10.2); Carbon Dioxide 30 mmol/L (22.0-30.0); Chloride 101 mmol/L (98-107); Estimated Glomerular Filt Rate 81 ml/min (>60); GFR (African American) 98 ML/MIN (>60); Glucose 87 mg/dl (74-100); Potassium 3.4 mmoL/L (3.5-5.1); Sodium 135 mmol/L (136-145)
== END 2024-01-17 23:59 | disposition home or self-care (01) ==
LOC: LAB.DROPOF 01-18 12:02
PROVIDERS: PCP Family Medicine; Visit Provider Family Medicine
DX: E87.6 Hypokalemia (principal)
CPT/HCPCS: 80048

== ENCOUNTER 2024-02-28 14:44 | Outpatient (CLI) | payer MEDICARE, SELFPAY ==
[2024-02-28 19:29] LABS: Alanine Aminotransferase 21 U/L (12-78); Albumin Level 3.9 g/dl (3.5-5.0); Albumin/Globulin Ratio 1.1 (1.1-1.8); Alkaline Phosphatase 117 U/L (38-126); Anion Gap 7.9 mEq/L (5-15); Aspartate Amino Transferase 29 U/L (14-36); Bilirubin,Total 0.6 mg/dl (0.2-1.3); Blood Urea Nitrogen 12 mg/dl (7-17); Calcium 9.7 mg/dl (8.4-10.2); Carbon Dioxide 28 mmol/L (22.0-30.0); Chloride 105 mmol/L (98-107); Estimated Glomerular Filt Rate 69 ml/min (>60); GFR (African American) 84 ML/MIN (>60); Globulin 3.5 g/dL (1.3-3.2); Glucose 85 mg/dl (74-100); Potassium 3.9 mmoL/L (3.5-5.1); Sodium 137 mmol/L (136-145); Total Protein,Serum 7.4 g/dl (6.3-8.2)
== END 2024-02-28 23:59 | disposition home or self-care (01) ==
LOC: LAB.DROPOF 02-29 14:44
PROVIDERS: PCP Family Medicine; Visit Provider Family Medicine
DX: E03.9 Hypothyroidism, unspecified (principal); E87.6 Hypokalemia
CPT/HCPCS: 80053; 84443

== ENCOUNTER 2024-02-29 09:25 | Outpatient (CLI) | payer MEDICARE, SELFPAY ==
[2024-02-29 10:08] LABS: Chol/HDL Ratio 1.8 (1-3.5); Cholesterol 155 mg/dl (140-200); HDL Cholesterol 86 mg/dl (40-60); Triglycerides 73 mg/dl (30-150); VLDL Cholesterol 15 mg/dL (0-40)
[2024-02-29 10:19] LABS: Direct LDL Cholesterol 42.39 mg/dL (100-129)
== END 2024-02-29 23:59 | disposition home or self-care (01) ==
LOC: LAB 09:26
PROVIDERS: PCP Psychiatry & Neurology Sleep Medicine; Visit Provider Specialist
DX: E78.89 Other lipoprotein metabolism disorders (principal)
CPT/HCPCS: 36415; 80061

== ENCOUNTER 2024-04-02 07:54 | Day surgery (SDC) | payer MEDICARE, SELFPAY ==
[2024-04-02 07:58] VITALS: BMI 30.4
[2024-04-02 08:31] VITALS: BP 94/62; PULSE 80; RESP 20; O2SAT 95
[2024-04-02] MEDS: LIDOCAINE 2% W/EPI 1:100,000 20ML VIAL 20 ML SQ (08:37)
[2024-04-02] MEDS: CEFAZOLIN SODIUM 1 GM in 0.9 % SODIUM CHLORIDE 50 ML IV (08:37)
[2024-04-02 08:50] VITALS: BP 123/71; PULSE 60; RESP 20; O2SAT 96
--- NOTE | 2024-04-02 08:59 | P.PCN_ITS ---
[facility] Loop Recorder Date: 04/02/24 Time: 09:00 Procedure Performed:: Implantation of loop recorder Indication:: Cryptogenic stroke Paroxysmal atrial fibrillation Technique:: Patient was brought to the cardiac Micro Lab Analyst. After informed consent obtained, 1% lidocaine with epinephrine was used to anesthetize the site along the left anterior aspect of the chest near the sternal border. Using the preformed scalpel, an incision was made and using the supplied preloaded apparatus, the loop recorder was placed subcutaneously without difficulty. Following the deployment of the loop recorder interrogation of the device was performed to ensure appropriate voltage was being detected. Once this was verified, Steri- Strips were placed over the incision and the patient was prepped to discharge ho in. Patient tolerated the procedure well with minimal discomfort. Impression:: Successful implantation of loop recorder Serial Number:: Mocoplext-IQ EL plus model number [id number] serial #[id number] Plan:: Routine postop care
== END 2024-04-02 09:07 | disposition home or self-care (01) ==
PROVIDERS: PCP Family Medicine; Visit Provider Internal Medicine
DX: G45.9 Transient cerebral ischemic attack, unspecified (principal); I48.0 Paroxysmal atrial fibrillation
CPT/HCPCS: 33285; C1764; J0690

== ENCOUNTER 2024-07-18 12:25 | Outpatient (CLI) | payer MEDICARE, SELFPAY ==
[2024-07-18 18:47] LABS: Anion Gap 11.2 mEq/L (5-15); Blood Urea Nitrogen 13 mg/dl (7-17); Carbon Dioxide 31 mmol/L (22.0-30.0); Chloride 102 mmol/L (98-107); Estimated Glomerular Filt Rate 69 ml/min (>60); GFR (African American) 84 ML/MIN (>60); Potassium 4.2 mmoL/L (3.5-5.1); Sodium 140 mmol/L (136-145)
[2024-07-18 18:48] LABS: Alanine Aminotransferase 14 U/L (12-78); Albumin Level 4.2 g/dl (3.5-5.0); Albumin/Globulin Ratio 1.4 (1.1-1.8); Alkaline Phosphatase 125 U/L (38-126); Aspartate Amino Transferase 24 U/L (14-36); Bilirubin,Total 0.3 mg/dl (0.2-1.3); Calcium 9.9 mg/dl (8.4-10.2); Chol/HDL Ratio 2.7 (1-3.5); Cholesterol 236 mg/dl (140-200); Globulin 3.1 g/dL (1.3-3.2); Glucose 77 mg/dl (74-100); HDL Cholesterol 88 mg/dl (40-60); Total Protein,Serum 7.3 g/dl (6.3-8.2); Triglycerides 100 mg/dl (30-150); VLDL Cholesterol 20 mg/dL (0-40)
[2024-07-18 18:59] LABS: Direct LDL Cholesterol 122.28 mg/dL (100-129)
[2024-07-18 19:17] LABS: Microalbumin/Creatinine Ratio 36.2
[2024-07-18 19:26] LABS: Thyroid Stimulating Hormone 2.08 uIU/mL (0.465-4.68)
[2024-07-18 19:31] LABS: Creatinine,Urine Random 27 mg/dL (Not Estab.)
[2024-07-18 19:45] LABS: Vitamin B12 272 pg/mL (239-931)
[2024-07-18 19:54] LABS: 25-OH Vitamin D, Total < 12.8 ng/mL (30-100)
== END 2024-07-18 23:59 | disposition home or self-care (01) ==
LOC: LAB.DROPOF 07-19 10:23
PROVIDERS: PCP Nurse Practitioner; Visit Provider Nurse Practitioner
DX: I10 Essential (primary) hypertension (principal); E78.2 Mixed hyperlipidemia; I25.10 Atherosclerotic heart disease of native coronary artery without angina pectoris; E03.9 Hypothyroidism, unspecified; E55.9 Vitamin D deficiency, unspecified; E53.8 Deficiency of other specified B group vitamins
CPT/HCPCS: 80053; 80061; 82043; 82306; 82570; 82607; 84439; 84443

== ENCOUNTER 2025-01-14 11:51 | Outpatient (CLI) | payer MEDICARE, SELFPAY ==
--- OUTSIDE RECORDS SUMMARY | 2024-11-23 11:00 | XMS_ITS | Encounter Summary ---
Author Organization Healthcare Address [address] [id number] Care Team Providers Care Data Architect Name Role Phone Hector Gomez MD Primary Care Provider [phone] Reason for Visit * Reason Comments Routine Oral Cleaning Encounter Details Date Type Department Care Team (Late st Contact Info) Description 11/23/2024 11:00 AM EDT Office Visit [facility] [address] [place] [address] Gabby Trinidad Dental calculus (Primary Dx) Social History Tobacco Use Types Packs/Day Years Used Date Smoking Tobacco: Never Assessed Comments Unknown Sex and Gender Information Value Date Recorded Sex Assigned at Not on file Legal Sex Female 6:07 PM EDT Gender Identity Not on file Sexual Orientation Not on file documented as of this encounter Last Filed Vital Signs Vital Sign Reading Time Taken Comments Blood Pressure 96/55 11/23/2024 11:23 AM EDT Pulse 54 11/23/2024 11:23 AM EDT Temperature - - Respiratory Rate - - Oxygen Saturation - - Inhaled Oxygen Concentration - - Weight - - Height - - Body Mass Index - - documented in this encounter Miscellaneous Notes * Progress Notes - Gabby Trinidad - 11/23/2024 11:00 AM EDT [facility] Reviewed medical history Medical History[1] Medications Ordered Prior to Encounter[2] Allergies[3] Procedures: Dental procedures in this visit PERIODIC ORAL EVALUATION - ESTABLISHED PATIENT PROPHYLAXIS - ADULT Visit Vitals BP 96/55 Pulse 54 X-Rays: 4 BWX taken Last Panorex-05/10 Periodontal: Updated probed 1-4 mm Hygiene Treatment: Scaled, polished and flossed (Pt did not like ultrasonic) Oral Hygiene Status: Good- fair, mod calc and light plaque Oral Hygiene Instructions: Reviewed homecare(Brushing twice daily and floss daily). Recommended Listerine total care zero mouth rinse twice daily. Reinforced importance of 6 month recall. Hard Tissue Exam: Restorative needed #5-M and D craze line-Observe #9-I porc chip-Observe #32- B- Decay buddhist needed #15- Dl- Restorationist needed #19 and #20-Observe around crown margins #31-A-qswuh-Restorationist needed Soft Tissue Exam: No path Radiographic Findings: See Interpretation Treatment Plan Return to clinic for restorative with Dr. Duran This note was dictated to me, Gabby Trinidad , acting as scribe for Dr. Duran. [1] No past medical history on file. [2] Current Outpatient Medications on File Prior to Visit Medication Sig Dispense Refill aspirin 325 MG tablet Take 1 tablet (325 mg) by mouth 1 (one) time each day. atorvastatin (Lipitor) 10 MG tablet Take 1 tablet (10 mg) by mouth 1 (one) time each day. bisoprolol (Zebeta) 5 MG tablet Take 1 tablet (5 mg) by mouth 1 (one) time each day. Docusate Sodium (DSS) 100 MG capsule Take 100 mg by mouth 1 (one) time each day. hydroCHLOROthiazide (HYDRODiuril) 25 MG tablet Take 1 tablet (25 mg) by mouth 1 (one) time each day. levothyroxine (Synthroid, Levoxyl) 112 MCG tablet Take 1 tablet (112 mcg) by mouth. losartan (Cozaar) 50 MG tablet Take 1 tablet (50 mg) by mouth 1 (one) time each day. No current facility-administered medications on file prior to visit. [3] Allergies Allergen Reactions Pyrithione Zinc Swelling Pepper, sesame, coconut and oregano Egg Solids, Whole Other - please document in the comment field Cosigned by Krystina Duran DMD at 11/25/2024 8:28 PM EDT Associated attestation - Krystina Duran DMD - 11/25/2024 8:28 PM EDT The documentation was scribed in my presence at the time of the encounter and accurately reflects the service I personally performed and the decisions made by me. I have reviewed the dental hygiene note and exam note and I agree with the findings and treatment plan as documented. During the exam, Iwas physically in the clinic and immediately available to provide direct supervision. documented in this encounter Plan of Treatment Upcoming Encounters Date Type Department Care Team (Late st Contact Info) Description 07/04/2025 11:00 AM EST Office Visit [facility] [address] [place] [address] Gabby Trinidad Scheduled Orders Name Type Priority Associated Diagnoses Orde r Schedule PERIODIC ORAL EVALUATION - ESTABLISHED PATIENT Dental Routine 1 Occurren pelon starting 11/23/2024 PROPHYLAXIS - ADULT Dental Routine 1 Occ urrences starting 11/23/2024 PANORAMIC RADIOGRAPHIC IMAGE Dental Routine [address] arting 11/23/2024 documented as of this encounter Procedures Procedure Name Priority Date/Time Associated Diagnosis Comments PROPHYLAXIS - ADULT Routine 11/23/2024 1 1:00 AM EDT Dental calculus BITEWINGS - 4 RADIOGRAPHIC IMAGES Routine 11/23/2024 11:00 AM EDT Dental calculus PERIODIC ORAL EVALUATION - ESTABLISHED PATIENT Routine 11/23/2024 11:00 AM EDT Dental calculus documented in this encounter Visit Diagnoses Diagnosis Dental calculus- Primary Accretions on teeth documented in this encounter Additional Health Concerns Assessment Noted Time A Body Mass Index follow-up plan has been documented for the patient 11/23/2024 12:23 PM EDT documented as of this encounter Care Teams Data Architect Relationship Specialty Start Date End Date Hector Gomez MD [address] [place] [address] PCP - General 11/07/20 documented as of this encounter
--- OUTSIDE RECORDS SUMMARY | 2024-12-12 11:00 | XMS_ITS | Encounter Summary ---
Author Organization [facility] Address [address] [id number] Care Team Providers Care Flow Trader Name Role Phone Ricky Denney MD Primary Care Provider [phone] Reason for Visit * Episode Based Medications (Routine) - Authorized Specialty Diagnoses / Procedures Referred By Contac t Referred To Contact Diagnoses Crohn's disease without complication, unspecified gastrointestinal tract location Procedures [place] INFLIXIMAB NOT BIOSIMIL 10MG Dick Brown, PharmD [address] [place] [address] Phone: tel: Dick Brown, PharmD [address] [place] [address] Phone: tel: Referral ID Status Reason Start Date Expiration Date V isits Requested Visits Authorized [id number] Authorized 11/20/2024 11/20/2025 1 1 Encounter Details Date Type Department Care Team (Late st Contact Info) Description 12/12/2024 11:00 AM EDT Infusion [facility] OUTPATIENT ONCOLOGY AT [facility] [address] [facility] [place] [address] Crohn's disease without complication, unspecified [...] Description 01/29/2025 3:30 PM EDT Office Visit [facility] GA[facility] [address] [place] [address] Marcos Potts MD [address] [place] [address] 02/06/2025 11:00 AM EDT Appointment [facility] OUTPATIENT ONCOL[facility] [address] [place] [address] documented as of this encounter Visit Diagnoses [...] mL/hr documented in this encounter Care Teams Flow Trader Relationship Specialty Start Date End Date Ricky Denney MD [address] [place] [address] PCP - General Colon and Rectal Surgery 02/13/16 documented as of this encounter
--- OUTSIDE RECORDS SUMMARY | 2025-01-04 11:15 | XMS_ITS | Encounter Summary ---
Author Organization Healthcare Address [address] [place] [address] Care Team Providers Care Lime Filter Operator Name Role Phone Hector Gomez MD Primary Care Provider [phone] Encounter Details Date Type Department Care Team (Late st Contact Info) Description 01/04/2025 11:15 AM EDT Office Visit [facility] Adult Dentistry [address] [place] [address] Krystina Duran, DMD [address] [facility] [address] [place] [address] Dental caries (Primary Dx) Social [...] accepted treatment plan. Pt reports no issues. Temple material and procedure discussed with patient pre-operatively. [...] Description 07/04/2025 11:00 AM EST Office Visit [facility] Adult Dentistry [address] [place] [address] Gabby Trinidad documented as of this encounter [...] documented as of this encounter Care Teams Lime Filter Operator Relationship Specialty Start Date End Date Hector Gomez MD [address] [place] [address] PCP - General 11/07/20 documented as of this encounter
--- OUTSIDE RECORDS SUMMARY | 2025-01-14 11:53 | XMS_ITS | Clinical Summary ---
Author Organization [facility] Address [address] [place] [address] Care Team Providers Care Crank Hand Name Role Phone Hector Gomez MD Primary Care Provider [phone] Source Comments This information has been disclosed to you from confidential records protectedfrom disclosure by state law. You shall make no further disclosure of thisinformation without the specific, written, and informed release of theindividual to whom it pertains, or as otherwise permitted by law. A generalauthorization for the release of medical or other information is not sufficientfor the purposes of therelease of HIV test results or diagnoses. [id number] Allergies Active Allergy Reactions Criticality Noted Date Comments Egg Derived 12/02/2013 Medications iwwglyek-wotg-w in-folic acid (CENTRUM) 3,500-18-0.4 unit-mg-mg Chew Chew 1 tablet by mouth daily. Active inFLIXimab, REMICADE, 100 mg injection Intravenous 10 mLs (100 mg total) every 3 months. Active losartan (COZAAR) 50 MG tablet Take 1 tablet (50 mg total) by mouth 2 times a day. 2 Active levothyroxine (SYNTHROID) 112 MCG tablet Take 1 tablet (112 mcg total) by mouth daily. Active atorvastatin (LIPITOR) 80 MG tablet TAKE 1 TABLET BY MOUTH EVERYDAY AT BEDTIME 90 tablet 3 Active gabapentin (NEURONTIN) 100 MG capsule Take 1 capsule (100 mg total) by mouth 3 times a day. Active fluticasone propionate (FLONASE) 50 mcg/actuation nasal spray Use 1 spray into each nostril if needed for Rhinitis. Active cycloSPORINE (RESTASIS) 0.05 % ophthalmic emulsion 1 drop if needed. Active docusate sodium (COLACE) 100 MG capsule Take 1 capsule (100 mg total) by mouth 2 times a day. Active aspirin 325 MG tabletIndicatio ns:TIA (transient ischemic attack),Cerebro vascular accident (CVA) due to other mechanism (CMS-HCC) TAKE 1 TABLET BY MOUTH EVERY DAY 90 tablet 3 Active Active Problems Problem Noted Date Diagnosed Date Stroke determined by clinical assessment 023 Crohn disease Social History Tobacco Use Types Packs/Day Years Used Date Smoking Tobacco: Former Cigarettes Q uit: 12/02/1980 Smokeless Tobacco: Never Tobacco Cessation:Counseling Given: Not Answered Alcohol Use Standard Drinks/Week Comments Yes 0 (1 standard drink = 0.6 oz pur e alcohol) occas AUDIT-C Answer Date Recorded Q1: How often do you have a drink containing alc ohol? Patient declined 07/05/2022 Q2: How many drinks containi ng alcohol do you have on a typical day when you are drinking? Patient declined 07/05/2022 Q3: How often do you have si x or more drinks on one occasion? Patient declined 07/05/2022 Yearly Questionnaire Answer Date Record ed Do you need any assistance w ith obtaining housing, meals, medication, transportation or medical equipment? No 09/20 Assistance needed for: Not on file 3 Yearly Questionnaire Answer Date Record ed Do you need any assistance w ith obtaining housing, meals, medication, transportation or medical equipment? No 09/20 Assistance needed for: Not on file 3 Yearly Questionnaire Answer Date Record ed Do you need any assistance w ith obtaining housing, meals, medication, transportation or medical equipment? No 09/20 Assistance needed for: Not on file 3 Comments No Sex and Gender Information Value Date Recorded Sex Assigned at Not on file Legal Sex Female 7:12 PM EST Gender Identity Not on file Sexual Orientation Not on file Last Filed Vital Signs Vital Sign Reading Time Taken Comments Blood Pressure 120/55 09/20/2022 10:05 AM EDT Pulse 57 09/20/2022 10:05 AM EDT Temperature 36.7 C (98 F) 07/07/2022 11:40 AM EST Respiratory Rate 28 07/07/2022 5:00 PM EST Oxygen Saturation 96% 09/20/2022 10:05 AM EDT Inhaled Oxygen Concentration 96% 09/20/2022 1 0:05 AM EDT Weight 70.5 kg (155 lb 6.4 oz) 09/20/2022 10:05 AM EDT Height 149.9 cm (4' 11 ) 09/20/2022 10:05 AM EDT Body Mass Index 31.39 09/20/2022 10:05 AM EDT Plan of Treatment Health Maintenance Due Date Last Done Comments Immunization: COVID-19 (#1) 1949 Depression Screening 1962 Immunization: DTaP/Tdap/Td (1 - Tdap) 1963 Immunization: Zoster (1 of 2) 1963 Immunization: Pneumococcal (1 of 1 - PCV) 1994 Osteoporosis Screening (DXA Scan) 1994 Immunization: RSV (Adult) (1 - 1-dose 75+ series) 02/26 Alcohol Misuse Screening 07/05/2023 07/05/2022 Immunization: Influenza (MyChart) (#1) 2025 Insurance MEDICARE PPO COMP Advance Directives For more information, please contact: [phone] * Full Code (Latest Code Status on File) Date Activated Date Inactivated Comments 07/05/2022 8:45 PM 07/07/2022 10:06 PM Care Teams Crank Hand Relationship Specialty Start Date End Date Hector Gomez MD [address] [facility] [address] [place] [id number] PCP - General Family Medicine 07/06/22
--- OUTSIDE RECORDS SUMMARY | 2025-01-14 11:53 | XMS_ITS | Encounter Summary ---
Author Organization [facility] Address [address] [id number] Care Team Providers Care Telemarketer Name Role Phone Ricky Denney MD Primary Care Provider [phone] Encounter Details Date Type Department Care Team (Latest Contact Info) Description 12/12/2024 Travel Social History Tobacco Use Types Packs/Day Years [...] on file documented as of this encounter Plan of Treatment Upcoming Encounters Date Type Department Care Team (Late st Contact Info) Description 01/29/2025 3:30 PM EDT Office Visit [facility] [address] [facility] [address] [place] [address] Marcos Potts MD [address] [facility] [address] [place] [address] 02/06/2025 11:00 AM EDT Appointment [facility] [address] [facility] [address] [place] [address] documented as of this encounter Visit Diagnoses Not on filedocumented in this encounter Care Teams Telemarketer Relationship Specialty Start Date End Date Ricky Denney MD [address] [place] [address] PCP - General Colon and Rectal Surgery 02/13/16 documented as of this encounter
--- OUTSIDE RECORDS SUMMARY | 2025-01-14 11:55 | XMS_ITS | Clinical Summary ---
Author Organization [facility] Address [address] [place] [address] Phone Care Team Providers Care Oncology Pharmacist Name Role Phone Unavailable Unavailable Conditions or Problems No information available. Medications No information available. Medications Administered No information available. Allergies, Adverse Reactions, Alerts No information available. Results No information available. Plan of Care No information available. Procedures No information available. Vital Signs No information available. Immunizations No information available. Advance Directives No information available.
--- OUTSIDE RECORDS SUMMARY | 2025-01-14 11:56 | XMS_ITS | Clinical Summary ---
Author Organization [facility] Address [address] [place] [address] Phone Care Team Providers Care Specimen Boss Name Role Phone Hector Gomez MD Primary Care Provider [phone] Allergies Active Allergy Reactions Criticality Noted Date Comments No Known Drug Allergies Other (See Comments) 04/28/2017 No allergies to meds Spice Flavor Swelling 04/28/2017 Pepper, sesame, coconut and oregano Medications levothyroxine (SYNTHROID) 112 mcg Take 112 mcg by mouth daily global manager. Active INFLIXIMAB (REMICADE IV) Inject into the vein. Every 8 weeks Active polyethylene glycol (GLYCOLAX, MIRALAX) 17 gram packet Take 17 g by mouth daily. Active loratadine (CLARITIN) 10 mg tablet Take 10 mg by mouth daily. As needed Active fluticasone (FLONASE) 50 mcg/actuation Nasl Breeding, Suspension 1 Breeding by Nasal route daily. Active mesalamine (LIALDA) 1.2 gram Oral Tablet, Delayed Release (E.C.) Take 1,200 mg by mouth daily (with breakfast). Active olopatadine (PATADAY) 0.2 % Opht DropsIndications:A llergic conjunctivitis of both eyes One drop daily OU as needed for itching/burning 1 Bottle 4 10/01/19 16 Active Additional Information Patient not taking.Reason: Pt electing to not take the medication, Reported on 11/05/2024 aspirin 81 mg Oral Tablet, Chewable Take 81 mg by mouth daily. Active atorvastatin (LIPITOR) 10 mg Oral Tablet Take 10 mg by mouth daily. Active losartan (COZAAR) 50 mg Oral Tablet Take 50 mg by mouth 2 times daily. Active levocetirizine (XYZAL) 5 mg Oral Tablet Take 5 mg by mouth every evening. Active hydroCHLOROthiazid e (MICROZIDE) 12.5 mg Oral Capsule Take 12.5 mg by mouth daily. Active diltiazem 120 mg Oral Capsule, Sust. Release 24 hr Take 120 mg by mouth daily. Active methylPREDNISolone (MEDROL) 4 mg Oral Tablet Take 4 mg by mouth daily. Active sertraline (ZOLOFT) 50 mg Oral Tablet 50 mg. 01/20/20 20 Active olopatadine (PATANOL) 0.1 % Opht DropsIndications:A llergic conjunctivitis of both eyes,Skin irritation INSTILL 1 DROP INTO BOTH EYES TWICE A DAY 5 mL 1 02/24/20 21 Active Additional Information Patient not taking.Reason: Pt electing to not take the medication, Reported on 11/05/2024 cycloSPORINE (CEQUA) 0.09 % Opht DropperetteIndicat ions:Keratitis sicca Place 1 Drop into both eyes 2 times daily. 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; Allergic conjunctivitis of both eyes; Pseudophakia of both eyes; PVD (posterior vitreous detachment), both eyes; S/P YAG capsulotomy, left; H/O: stroke from Last 3 Months Surgical History Surgery Date Site/Laterality Comments HYSTERECTOMY CHOLECYSTECTOMY FOOT SURGERY left HAND SURGERY carpal tunnel EYE SURGERY Left cataract with IOL EYE SURGERY 01/18/2012 Eye/Left YAG LASER POSTERIOR CAPSULOTOMY LEFT EYE ; Surgeon: Paul Aiken MD; Location: [facility] MAIN OR; Service: Ophthalmology CATARACT REMOVAL CARDIAC CATHETERIZATION CATARACT REMOVAL 05/03/2017 Right Right eye CATARACT EXTRACTION WITH PHACOEMULSIFICATION AND INTRAOCULAR LENS; Surgeon: Ricky Montiel MD; Location: [facility]; Service: Ophthalmology Medical devices from this surgery are in the Medical Devices section. Medical History Medical History Date Comments Crohn's disease (HCC) Arthritis Urinary incontinence Thyroid disease Melkersson-Nunu syndrome Multiple food allergies Seasonal allergies Hyperlipidemia CAD (coronary artery disease) Heartburn Irritable bowel syndrome Chrohn' s Family History Medical History Relation Name Comments Cancer Father Cancer Mother Heart Disease Mother High Blood Pressure Mother Cancer Sister Heart Disease Sister High Blood Pressure Sister Anesth Problems Neg Hx Blindness Neg Hx Diabetes Neg Hx Glaucoma Neg Hx Macular Degen Neg Hx Retinal Detachment Neg Hx Relation Name Status Comments Father Mother liver cancer. C ad Sister Social History Tobacco Use Types Packs/Day Years Used Date Smoking Tobacco: Former Cigarettes Q uit: 06/27/1972 Smokeless Tobacco: Never Alcohol Use Standard Drinks/Week Comments Yes 0 (1 standard drink = 0.6 oz pur e alcohol) social Comments No Sex and Gender Information Value Date Recorded Sex Assigned at Not on file Legal Sex Female 9:45 PM EDT Gender Identity Not on file Sexual Orientation Not on file Obstetrics History Last Filed Vital Signs Vital Sign Reading Time Taken Comments Blood Pressure 141/60 05/03/2017 10:47 AM EST Pulse 50 05/03/2017 10:47 AM EST Temperature 36 C (96.8 F) 05/03/2017 10:47 AM EST Respiratory Rate 16 05/03/2017 9:32 AM EST Oxygen Saturation 97% 05/03/2017 10: 47 AM EST Inhaled Oxygen Concentration - - Weight 88.3 kg (194 lb 11.2 oz) 05/03/2017 9:32 AM EST Height 149.9 cm (4' 11 ) 04/28/2017 12: 22 PM EDT Body Mass Index 39.32 04/28/2017 12:22 PM EDT Plan of Treatment Upcoming Encounters Date Type Department Care Team (Late st Contact Info) Description 06/07/2025 10:15 AM EST Office Visit [facility] [address] [place] [address] Sergio Wang MD [address] [place] [address] Health Maintenance Due Date Last Done Comments Wellness Exam Medicare 1948 COVID-19 Vaccine (#1) 1949 DTaP/TDaP/Td (1 - Tdap) 1963 Pneumococcal Vaccine 50+ (1 of 2 - PCV) 1963 Zoster (1 of 2) 1963 Bone Density Screening 2009 RSV or 60+ (1 - 1-d ose 75+ series) 2019 Influenza Vaccine (#1) 2025 Hepatitis B Vaccine Aged Out No longe r eligible based on patient's age to complete this topic Meningococcal B Vaccine Aged Out No l onger eligible based on patient's age to complete this topic Medical Devices Implanted Type Area Traveling Nurse Device Identifier Shelf Expiration Date Model / Serial / Lot Lens Intraocular Preloaded 20.0 Diopter - [id number] Implanted:Qty: 1 on 05/03/2017 by Ricky Montiel MD at [facility] Right: Eye [facility]:SURG 09/25/2019 [id number] / [id number] / [place] [address] MEDICARE PPO [place] MEDICARE PPO [place] Care Teams Specimen Boss Relationship Specialty Start Date End Date Hector Gomez MD [address] [address] [address] [place] [address] PCP - General Family Medicine 01/28/17
--- OUTSIDE RECORDS SUMMARY | 2025-01-14 11:56 | XMS_ITS | Encounter Summary ---
Author Organization Healthcare Address [address] [id number] Care Team Providers Care Manager Cardiology Name Role Phone Hector Gomez MD Primary Care Provider [phone] Encounter Details Date Type Department Care Team (Late st Contact Info) Description 11/12/2019 Abstract [facility] [address] [place] [address] Dental, Provider, DDS [facility] [place] [id number] Social History Tobacco Use Types Packs/Day Years [...] Description 07/04/2025 11:00 AM EST Office Visit [facility] Adult [facility]istry [address] [place] [address] Amos Gabby Silvana documented as of this encounter Visit Diagnoses Not on filedocumented in this encounter Care Teams Manager Cardiology Relationship Specialty Start Date End Date Hector Gomez MD [address] [place], [place] [address] PCP - General 11/07/20 documented as of this encounter
--- OUTSIDE RECORDS SUMMARY | 2025-01-14 11:56 | XMS_ITS | Encounter Summary ---
Author Organization Healthcare Address [address] [place] [address] Care Team Providers Care Senior Animal Trainer Name Role Phone Hector Gomez MD Primary Care Provider [phone] Encounter Details Date Type Department Care Team (Latest Contact Info) Description 01/04/2025 Travel Social History Tobacco Use Types Packs/Day [...] Description 07/04/2025 11:00 AM EST Office Visit [facility] [address] [place] [address] Gabby Trinidad documented as of this encounter Visit Diagnoses Not on filedocumented in this encounter Additional Health Concerns Assessment Noted Time A Body Mass Index follow-up plan has been documented for the patient 01/04/2025 4:46 PM EDT documented as of this encounter Care Teams Senior Animal Trainer Relationship Specialty Start Date End Date Hector Gomez MD [address] [place] [address] PCP - General 11/07/20 documented as of this encounter
--- OUTSIDE RECORDS SUMMARY | 2025-01-14 11:56 | XMS_ITS | Encounter Summary ---
Author Organization Healthcare Address [address] [id number] Care Team Providers Care Mechanical Spreader Operator Name Role Phone Hector Gomez MD Primary Care Provider [phone] Encounter Details Date Type Department Care Team (Late st Contact Info) Description 11/12/2019 Abstract [facility] [address] [place] [address] Dental, Provider, DDS [facility] [place], [place] [id number] Social History Tobacco Use Types Packs/Day Years [...] Description 07/04/2025 11:00 AM EST Office Visit [facility] Adult Dentistry [address] [place] [address] Amos Gabby Silvana documented as of this encounter Visit Diagnoses Not on filedocumented in this encounter Care Teams Mechanical Spreader Operator Relationship Specialty Start Date End Date Hector Gomez MD [address] [place], [place] [address] PCP - General 11/07/20 documented as of this encounter
--- OUTSIDE RECORDS SUMMARY | 2025-01-14 11:56 | XMS_ITS | Clinical Summary ---
Author Organization [facility] Address [address] [place] [address] Care Team Providers Care Department Director Name Role Phone Hector Gomez MD Primary Care Provider [phone] Allergies Active Allergy Reactions Criticality Noted Date Comments Egg Solids, Whole Other - please docum ent in the comment field Low 12/02/2013 Pyrithione Zinc Swelling High 04/28/2017 Pepper, sesame, coconut and oregano Medications aspirin 325 MG tablet Take 1 tablet (325 mg) by mouth 1 (one) time each day. 10/11/2022 Active atorvastatin (Lipitor) 10 MG tablet Take 1 tablet (10 mg) by mouth 1 (one) time each day. Active bisoprolol (Zebeta) 5 MG tablet Take 1 tablet (5 mg) by mouth 1 (one) time each day. Active hydroCHLOROthiaz clinton (HYDRODiuril) 25 MG tablet Take 1 tablet (25 mg) by mouth 1 (one) time each day. Active levothyroxine (Synthroid, Levoxyl) 112 MCG tablet Take 1 tablet (112 mcg) by mouth. Active Docusate Sodium (DSS) 100 MG capsule Take 100 mg by mouth 1 (one) time each day. Active losartan (Cozaar) 50 MG tablet Take 1 tablet (50 mg) by mouth 1 (one) time each day. Active Encounters Date Type Department Care Team Description 01/04/2025 11:15 AM EDT Office Visit [facility] Adult [facility]istry [address] [place] [address] Krystina Duran, PETEY Dental caries (Primary Dx) 01/04/2025 Travel 11/23/2024 11:00 AM EDT Office Visit [facility] Adult [facility]istry [address] [place] [address] Gabby Trinidad Dental calculus (Primary Dx) 11/23/2024 Travel from Last 3 Months Social History Tobacco Use Types Packs/Day Years [...] - - Body Mass Index - - Plan of Treatment Upcoming Encounters Date Type Department Care Team (Late st Contact Info) Description 07/04/2025 11:00 AM EST Office Visit [facility] [address] [place] [address] Gabby Trinidad Health Maintenance Due Date Last Done Comments Dental X-Ray: Full Mouth 1944 [facility]-Bone Density Scan 1944 [facility]-Depression Screening 1944 [facility]-Medicare Annual Wellness (AWV) 1944 [facility]-Infant/Child/Adol SDOH Screenings 1944 [facility]- SDOH Screenings 1962 [facility]-Adult SDOH Screenings 1962 [facility]-Zoster Vaccines (1 of 2) 1994 [facility]-RSV Vaccine: 60+ Years or (1 - 1-dose 75+ series) 2019 [id number] Vaccine ( season) 2024 06/30/2021, 09/15/2020, 08/18/2020 [facility]-Influenza Vaccine (#1) 02/25/202507/18, 04/13/2022, 04/17/2021, Additional history exists Dental Oral Exam 05/27/2025 11/23/2024, 06/2023, 09/16/2023 Dental Prophylaxis 05/27/2025 11/23/2024, 1 , 09/16/2023 Dental X-Ray: Bitewings 11/24/2025 11/23/2024, 09/15 [facility]-DTaP,Tdap,and Td Vaccines (2 - Td or Tdap) 07/04/2027 07/04/2017 [facility]-Pneumococcal Vaccine: 50+ Years Completed 07/18/2024, 04/17/2021 HPV Vaccines Aged Out No longer eligi ble based on patient's age to complete this topic [facility]-HIB Vaccines Aged Out No longer e ligible based on patient's age to complete this topic [facility]-Hepatitis A Vaccines Aged Out No longer eligible based on patient's age to complete this topic [facility]-IPV Vaccines Aged Out No longer e ligible based on patient's age to complete this topic [facility]-Rotavirus Vaccines Aged Out No lo nger eligible based on patient's age to complete this topic Procedures Procedure Name Priority Date/Time Associated Diagnosis Comments 15 DL AMALGAM - 2 SURFACES, PRIMARY OR PERMANENT Routine 01/04/2025 11:15 AM EDT Dental caries 32 B AMALGAM - 1 SURFACE, PRIMARY OR PERMANENT Routine 01/04/2025 11:15 AM EDT Dental caries PERIODIC ORAL EVALUATION - ESTABLISHED PATIENT Routine 11/23/2024 11:00 AM EDT Dental calculus PROPHYLAXIS - ADULT Routine 11/23/2024 1 1:00 AM EDT Dental calculus BITEWINGS - 4 RADIOGRAPHIC IMAGES Routine 11/23/2024 11:00 AM EDT Dental calculus from Last 3 Months Insurance [facility] MEDICARE Care Teams Department Director Relationship Specialty Start Date End Date Hector Gomez MD [address] [place] [address] PCP - General 11/07/20
--- OUTSIDE RECORDS SUMMARY | 2025-01-14 11:56 | XMS_ITS | Encounter Summary ---
Author Organization Healthcare Address [address] [id number] Care Team Providers Care Principal Developer Name Role Phone Hector Gomez MD Primary Care Provider [phone] Encounter Details Date Type Department Care Team (Late st Contact Info) Description 11/12/2019 Abstract [facility] [address] [place] [address] Dental, Provider, DDS [facility] [place], [place] [id number] Social History Tobacco Use Types Packs/Day Years [...] Description 07/04/2025 11:00 AM EST Office Visit [facility] Adult Dentistry [address] [place] [address] Amos Gabby Silvana documented as of this encounter Visit Diagnoses Not on filedocumented in this encounter Care Teams Principal Developer Relationship Specialty Start Date End Date Hector Gomez MD [address] [place], [place] [address] PCP - General 11/07/20 documented as of this encounter
--- OUTSIDE RECORDS SUMMARY | 2025-01-14 11:56 | XMS_ITS | Clinical Summary ---
Author Organization [facility] Address [address] [place] [address] Care Team Providers Care Mining Professionals Name Role Phone Ricky Denney MD Primary Care Provider [phone] Allergies No known active allergies Medications levothyroxine (SYNTHROID, LEVOTHROID) 112 MCG tablet Take 75 mcg by mouth Every Morning. Active fluticasone (VERAMYST) 27.5 MCG/SPRAY nasal spray 2 sprays into the nostril(s) as directed by provider Daily. Active losartan (COZAAR) 50 MG tablet Take 1 tablet by mouth Daily. Active atorvastatin (LIPITOR) 10 MG tablet Take 1 tablet by mouth Daily. Active hydrochlorothia zide (HYDRODIURIL) 25 MG tablet Take 1 tablet by mouth Daily. Active inFLIXimab (REMICADE IV) Infuse into a venous catheter. Active Restasis 0.05 % ophthalmic emulsion 04/07/2021 Active aspirin 325 MG tablet Take 1 tablet by mouth Daily. 10/11/2022 Active docusate sodium (COLACE) 100 MG capsule Take 1 capsule by mouth 2 (Two) Times a Day. Active bisoprolol (ZEBeta) 5 MG tablet Take 1 tablet by mouth Daily. 1/2 TAB/DAY Active potassium chloride (MICRO-K) 10 MEQ CR capsule Take 1 capsule by mouth Every 12 (Twelve) Hours. 07/05/2024 Active Natural Vitamin D-3 125 MCG (5000 UT) tablet 12/11/2024 Active vitamin B-12 (CYANOCOBALAMIN ) 1000 MCG tablet Take 1 tablet by mouth Daily. 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 left Encounters Date Type Department Care Team Description 12/12/2024 11:00 AM EDT Infusion [facility] [address] [place] [address] Crohn's disease without complication, unspecified gastrointestinal tract location (Primary Dx) 12/12/2024 Travel from Last 3 Months Social History Tobacco Use Types Packs/Day Years Used Date Smoking Tobacco: Former Smokeless Tobacco: Never Tobacco Cessation:Counseling Given: Not [...] 18 12/12/2024 10:54 AM EDT Oxygen Saturation 98% 04/05/2023 1:49 PM EDT Inhaled Oxygen Concentration - - Weight 70 kg (154 lb 6.4 oz) 12/12/2024 10:54 AM EDT Height 149.9 cm (4' 11 ) 07/31/2024 1:39 PM EST Body Mass Index 31.19 07/31/2024 1:39 PM EST Plan of Treatment Upcoming Encounters Date Type Department Care Team (Late st Contact Info) Description 01/29/2025 3:30 PM EDT Office Visit [facility] [address] [facility] [address] [place] [address] Marcos Potts MD [address] [facility] [address] [place] [address] 02/06/2025 11:00 AM EDT Appointment [facility] OUTPATIENT [facility] [address] [facility] [address] [place] [address] Health Maintenance Due Date Last Done Comments DXA SCAN 1945 ZOSTER VACCINE (1 of 2) 1963 COLOGUARD 1989 COLON CANCER SCREENING 5 YEA R SIGMOIDOSCOPY 1989 CT COLONOGRAPHY 1989 FECAL OCCULT BLOOD TEST 1989 FIT Testing (1 year) 1989 ANNUAL WELLNESS VISIT 09/24/2016 RSV Vaccine - Adults (1 - 1- dose 75+ series) 2019 Pneumococcal Vaccine 50+ (2 of 2 - PPSV23) 06/12/2021 04/17/2021 COVID-19 Vaccine (3 - Modern a risk series) 07/28/2021 06/30/2021, 09/15/2020, 08/18/2020 COLONOSCOPY 09/27/2024 09/27/2022, 07/22/2020 COLORECTAL CANCER SCREENING 09/27/2024 INFLUENZA VACCINE 03/27/2025 04/13/2022, , 08/29/2019, Additional history exists TDAP/TD VACCINES (2 - Td or Tdap) 07/04/2027 018 Procedures Procedure Name Priority Date/Time Associated Diagnosis Comments SCANNED - COLONOSCOPY 09/27/2022 from Last 3 Months or Most Recently Relevant to Health Maintenance Results * SCANNED - COLONOSCOPY (09/27/2022) Marcos Potts MD CHART REVIEW TABS Herlinda l Result from Last 3 Months or Most Recently Relevant to Health Maintenance Insurance [employer] PPO [place] [id number] Care Teams Mining Professionals Relationship Specialty Start Date End Date Ricky Denney MD [address] [place] [address] PCP - General Colon and Rectal Surgery 02/13/16
--- OUTSIDE RECORDS SUMMARY | 2025-01-14 11:56 | XMS_ITS | Encounter Summary ---
Author Organization Healthcare Address [address] [place] [address] Care Team Providers Care Manager Gas Name Role Phone Hector Gomez MD Primary Care Provider [phone] Encounter Details Date Type Department Care Team (Latest Contact Info) Description 11/23/2024 Travel Social History Tobacco Use Types Packs/Day [...] Description 07/04/2025 11:00 AM EST Office Visit [facility] [address] [place] [address] Gabby Trinidad documented as of this encounter Visit Diagnoses Not on filedocumented in this encounter Additional Health Concerns Assessment Noted Time A Body Mass Index follow-up plan has been documented for the patient 11/23/2024 12:23 PM EDT documented as of this encounter Care Teams Manager Gas Relationship Specialty Start Date End Date Hector Gomez MD [address] [place] [address] PCP - General 11/07/20 documented as of this encounter
[2025-01-14 12:25] LABS: Hematocrit 42.7 % (37.0-47.0); Hemoglobin 13.8 g/dL (12.2-16.2); Immature Granulocytes % 0.4 %; Mean Corpuscular HGB Conc 32.3 g/dL (31.8-35.4); Mean Corpuscular Hemoglobin 29.4 pg (27.0-31.2); Mean Corpuscular Volume 91.0 fl (81-99); Nucleated Red Blood Cells % 0 %; Platelet Count 507 K/mm3 (142-424); Red Blood Count 4.69 M/mm3 (4.20-5.40); Red Cell Distribution Width-SD 43.9 fL; White Blood Count 11.2 K/mm3 (4.8-10.8)
[2025-01-14 12:45] LABS: Albumin Level 4.3 g/dl (3.5-5.0); Chloride 96 mmol/L (98-107); Potassium 4.4 mmoL/L (3.5-5.1); Sodium 131 mmol/L (136-145)
[2025-01-14 12:48] LABS: Alanine Aminotransferase 30 U/L (12-78); Alkaline Phosphatase 113 U/L (38-126); Anion Gap 12.4 mEq/L (5-15); Aspartate Amino Transferase 32 U/L (14-36); Bilirubin,Direct 0.5 mg/dl (0.0-0.4); Bilirubin,Indirect 0.1 mg/dL (0.0-0.9); Bilirubin,Total 0.6 mg/dl (0.2-1.3); Bilirubin,Unconjugated 0.1 mg/dL (0.0-1.1); Blood Urea Nitrogen 22 mg/dl (7-17); Calcium 10.5 mg/dl (8.4-10.2); Carbon Dioxide 27 mmol/L (22.0-30.0); Cholesterol 241 mg/dl (140-200); Creatinine,Serum 1.00 mg/dl (0.52-1.04); Estimated Glomerular Filt Rate 53 ml/min (>60); GFR (African American) 65 ML/MIN (>60); Glucose 96 mg/dl (74-100); Total Protein,Serum 7.7 g/dl (6.3-8.2); Triglycerides 105 mg/dl (30-150)
[2025-01-14 12:49] LABS: HDL Cholesterol 84 mg/dl (40-60); Magnesium 1.8 mg/dl (1.6-2.3)
[2025-01-14 13:19] LABS: Thyroid Stimulating Hormone 0.39 uIU/mL (0.465-4.68)
[2025-01-14 17:33] LABS: Free T4 (Free Thyroxine) 1.62 ng/dl (0.78-2.19)
== END 2025-01-14 23:59 | disposition home or self-care (01) ==
LOC: LAB 11:52
PROVIDERS: PCP Family Medicine; Visit Provider Nurse Practitioner
DX: I25.10 Atherosclerotic heart disease of native coronary artery without angina pectoris (principal); E53.8 Deficiency of other specified B group vitamins; E55.9 Vitamin D deficiency, unspecified; E78.2 Mixed hyperlipidemia; I10 Essential (primary) hypertension
CPT/HCPCS: 36415; 80048; 80061; 80076; 83735; 84439; 84443; 85025

== ENCOUNTER 2025-01-28 11:45 | Outpatient (CLI) | payer MEDICARE, SELFPAY ==
--- OUTSIDE RECORDS SUMMARY | 2024-11-23 11:00 | XMS_ITS | Encounter Summary ---
Author Organization Healthcare Address [address] [id number] Care Team Providers Care Patent Searcher Name Role Phone Hector Gomez MD Primary Care Provider [phone] Reason for Visit * Reason Comments Routine Oral Cleaning Encounter Details Date Type Department Care Team (Late st Contact Info) Description 11/23/2024 11:00 AM EDT Office Visit [facility] Adult [facility] [address] [place] [address] Gabby Trinidad Dental calculus (Primary Dx) Social [...] 11:00 AM EDT [facility] Reviewed medical history Medical History[1] [...] line-Observe #9-I porc chip-Observe #32- B- Decay orthodoxy needed #15- Dl- Baptism needed #19 and #20-Observe around crown margins #09-O-zumbw-Baptism needed Soft Tissue Exam: No path Radiographic [...] Description 07/04/2025 11:00 AM EST Office Visit [facility] [address] [place] [address] Gabby Trinidad Scheduled Orders Name Type Priority [...] documented as of this encounter Care Teams Patent Searcher Relationship Specialty Start Date End Date Hector Gomez MD [address] [place] [address] PCP - General 11/07/20 documented as of this encounter
--- OUTSIDE RECORDS SUMMARY | 2024-12-12 11:00 | XMS_ITS | Encounter Summary ---
Author Organization [facility] Address [address] [id number] Care Team Providers Care Green Chain Worker Name Role Phone Ricky Denney MD Primary Care Provider [phone] Reason for Visit * Episode Based Medications (Routine) - Authorized Specialty Diagnoses / Procedures Referred By Contac t Referred To Contact Diagnoses Crohn's disease without complication, unspecified gastrointestinal tract location Procedures [place] INFLIXIMAB NOT BIOSIMIL 10MG Dick Brown, PharmD [address] [place] [address] Phone: tel: Dick Brown, PharmD [address] [place] [address] Phone: tel: Referral ID Status Reason Start Date Expiration Date V isits Requested Visits Authorized [id number] Authorized 11/20/2024 11/20/2025 1 1 Encounter Details Date Type Department Care Team (Late st Contact Info) Description 12/12/2024 11:00 AM EDT Infusion [facility] OUTPATIENT ONCOLOGY AT [facility] [address] [facility] [place] [address] Crohn's disease without complication, unspecified [...] Care Team (Late st Contact Info) Description 01/29/2025 3:30 PM EDT Office Visit [facility] GASTROENTER[facility] [address] [address] Marcos Potts MD [address] [address] 02/06/2025 11:00 AM EDT Appointment [facility] OUTPATIENT ONCOLOGY [address] [place] [address] documented as of this encounter Visit Diagnoses [...] mL/hr documented in this encounter Care Teams Green Chain Worker Relationship Specialty Start Date End Date Ricky Denney MD [address] [place] [address] PCP - General Colon and Rectal Surgery 02/13/16 documented as of this encounter
--- OUTSIDE RECORDS SUMMARY | 2025-01-04 11:15 | XMS_ITS | Encounter Summary ---
Author Organization Healthcare Address [address] [place] [address] Care Team Providers Care Tufting Machine Operator Single Needle Name Role Phone Hector Gomez MD Primary Care Provider [phone] Encounter Details Date Type Department Care Team (Late st Contact Info) Description 01/04/2025 11:15 AM EDT Office Visit [facility] Adult Dentistry [address] [place] [address] Krystina Duran, DMD [address] [facility] [address] [place] [address] Dental caries (Primary Dx) Social History Tobacco Use Types Packs/Day Years Used Date Smoking Tobacco: Never Assessed Comments Unknown Sex and Gender Information Value Date Recorded Sex Assigned at Not on file Legal Sex Female 6:07 PM EDT Gender Identity Not on file Sexual Orientation Not on file documented as of this encounter Last Filed Vital Signs Vital Sign Reading Time Taken Comments Blood Pressure 140/69 01/04/2025 11:00 AM EDT Pulse 53 01/04/2025 11:00 AM EDT Temperature - - Respiratory Rate - - Oxygen Saturation - - Inhaled Oxygen Concentration - - Weight - - Height - - Body Mass Index - - documented in this encounter Miscellaneous Notes * Progress Notes - Krystina Duran DMD - 01/04/2025 11:15 AM EDT Subjective: 79 y.o. female presents to clinic for restorations from previously reviewed and accepted treatment plan. Pt reports no issues. Pentecostalism material and procedure discussed with patient pre-operatively. Pt was given the opportunity to ask all questions Objective: Medical and dental hx reviewed. Vitals: 01/04/25 1100 BP: (!) 140/69 Pulse: 53 Medications Ordered Prior to Encounter[1] Past Medical History[2] Allergies[3] Assessment: ASA Class: ASA 3 Caries noted on #15-DL & #32-B Plan: Today: #15-DL & #32-B amalgams Future visits: recall Treatment: 1 w/ 1:100,000 epi administered Decay was excavated from #15-DL & #32-B Preparations varnished and restored with amalgam Restorations contoured, occlusion adjusted and contacts flossed. POIG verbally and understanding acknowledged by the patient NV: recall [1] Current Outpatient Medications on File Prior to [...] facility-administered medications on file prior to visit. [2] No past medical history on file. [3] Allergies Allergen Reactions Pyrithione Zinc Swelling Pepper, sesame, coconut and oregano Egg Solids, Whole Other - please document in the comment field documented in this encounter Plan of Treatment Upcoming Encounters Date Type Department Care Team (Late st Contact Info) Description 07/04/2025 11:00 AM EST Office Visit [facility] Adult Dentistry [address] [place] [address] Gabby Trinidad documented as of this encounter Procedures Procedure Name Priority Date/Time Associated Diagnosis Comments 15 DL AMALGAM - 2 SURFACES, PRIMARY OR PERMANENT Routine 01/04/2025 11:15 AM EDT Dental caries 32 B AMALGAM - 1 SURFACE, PRIMARY OR PERMANENT Routine 01/04/2025 11:15 AM EDT Dental caries documented in this encounter Visit Diagnoses Diagnosis Dental caries- Primary Unspecified dental caries documented in this encounter Additional Health Concerns Assessment Noted Time A Body Mass Index follow-up plan has been documented for the patient 01/04/2025 4:46 PM EDT documented as of this encounter Care Teams Tufting Machine Operator Single Needle Relationship Specialty Start Date End Date Hector Gomez MD [address] [place] [address] PCP - General 11/07/20 documented as of this encounter
--- OUTSIDE RECORDS SUMMARY | 2025-01-28 11:48 | XMS_ITS | Clinical Summary ---
Author Organization [facility] Address [address] [place] [address] Phone Care Team Providers Care Ethnology Professor Name Role Phone Unavailable Unavailable Conditions or Problems No information available. Medications No information available. Medications Administered No information available. Allergies, Adverse Reactions, Alerts No information available. Results No information available. Plan of Care No information available. Procedures No information available. Vital Signs No information available. Immunizations No information available. Advance Directives No information available.
--- OUTSIDE RECORDS SUMMARY | 2025-01-28 11:50 | XMS_ITS | Encounter Summary ---
Author Organization [facility] Address [address] [place] [address] Care Team Providers Care Social Media Content Manager Name Role Phone Hector Gomez MD Primary Care Provider [phone] Encounter Details Date Type Department Care Team [...] Description 07/04/2025 11:00 AM EST Office Visit [facility] Adult Dentistry [address] [place] [address] Gabby Trinidad documented as of this encounter Visit Diagnoses Not on filedocumented in this encounter Additional Health Concerns Assessment Noted Time A Body Mass Index follow-up plan has been documented for the patient 01/04/2025 4:46 PM EDT documented as of this encounter Care Teams Social Media Content Manager Relationship Specialty Start Date End Date Hector Gomez MD [address] [place] [address] PCP - General 11/07/20 documented as of this encounter
--- OUTSIDE RECORDS SUMMARY | 2025-01-28 11:50 | XMS_ITS | Encounter Summary ---
Author Organization [facility] Address [address] [id number] Care Team Providers Care Hospitality Internship Name Role Phone Ricky Denney MD Primary Care Provider [phone] Encounter Details Date Type Department Care Team [...] Description 01/29/2025 3:30 PM EDT Office Visit [facility] [address] [facility] [address] [place] [address] Marcos Potts MD [address] [facility] [address] [place], [place] [address] 02/06/2025 11:00 AM EDT Appointment [facility] OUTPATIENT ONCOLOGY [address] [place] [address] documented as of this encounter Visit Diagnoses Not on filedocumented in this encounter Care Teams Hospitality Internship Relationship Specialty Start Date End Date Ricky Denney MD [address] [place] [address] PCP - General Colon and Rectal Surgery 02/13/16 documented as of this encounter
--- OUTSIDE RECORDS SUMMARY | 2025-01-28 11:50 | XMS_ITS | Clinical Summary ---
Author Organization [facility] Address [address] [place] [address] Care Team Providers Care Heating And Ventilating Drafter Name Role Phone Ricky Denney MD Primary Care Provider [phone] Allergies No known active allergies Medications levothyroxine [...] Team Description 12/12/2024 11:00 AM EDT Infusion [facility] OUTPATIENT ONCOLOGY AT [address] [place] [address] Crohn's disease without complication, unspecified [...] Description 01/29/2025 3:30 PM EDT Office Visit [facility] [address] [address] Marcos Potts MD [address] [address] 02/06/2025 11:00 AM EDT Appointment [facility] OUTPATIENT ONCOLOGY [address] [place] [address] Health Maintenance Due Date Last Done Comments [...] Health Maintenance Insurance [employer] PPO Care Teams Heating And Ventilating Drafter Relationship Specialty Start Date End Date Ricky Denney MD [address] [place] [address] PCP - General Colon and Rectal Surgery 02/13/16
--- OUTSIDE RECORDS SUMMARY | 2025-01-28 11:50 | XMS_ITS | Clinical Summary ---
Author Organization [facility] Address [address] [place] [address] Care Team Providers Care Corporate Treasury Analyst Name Role Phone Hector Gomez MD Primary Care Provider [phone] Source Comments This information has been disclosed [...] therelease of HIV test results or diagnoses. [id number] Allergies Active Allergy Reactions Criticality Noted Date Comments Egg Derived 12/02/2013 Medications cunwxmmq-njhi-d in-folic acid (CENTRUM) 3,500-18-0.4 unit-mg-mg Chew Chew [...] Advance Directives For more information, please contact: [phone] * Full Code (Latest Code Status on File) Date Activated Date Inactivated Comments 07/05/2022 8:45 PM 07/07/2022 10:06 PM Care Teams Corporate Treasury Analyst Relationship Specialty Start Date End Date Hector Gomez MD [address] [facility] [address] [place] [id number] PCP - General Family Medicine 07/06/22
--- OUTSIDE RECORDS SUMMARY | 2025-01-28 11:51 | XMS_ITS | Encounter Summary ---
Author Organization Healthcare Address [address] [id number] Care Team Providers Care Supervisor Dairy Sanitation Name Role Phone Hector Gomez MD Primary Care Provider [phone] Encounter Details Date Type Department Care Team (Late st Contact Info) Description 11/12/2019 [facility] [address] [place] [address] Dental, Provider, DDS [facility] [place] [id number] Social History Tobacco Use Types Packs/Day Years [...] Description 07/04/2025 11:00 AM EST Office Visit [facility] Adult Dentistry [address] [place] [address] Amos Gabby Pina documented as of this encounter Visit Diagnoses Not on filedocumented in this encounter Care Teams Supervisor Dairy Sanitation Relationship Specialty Start Date End Date Hector Gomez MD [address] [place], [place] [address] PCP - General 11/07/20 documented as of this encounter
--- OUTSIDE RECORDS SUMMARY | 2025-01-28 11:51 | XMS_ITS | Encounter Summary ---
Author Organization [facility] Address [address] [id number] Care Team Providers Care Fisher Hoop Net Name Role Phone Hector Gomez MD Primary Care Provider [phone] Encounter Details Date Type Department Care Team (Late st Contact Info) Description 11/12/2019 Abstract [facility] [address] [place] [address] Dental, Provider, DDS [facility] [place] [id number] Social History Tobacco Use Types Packs/Day Years [...] Description 07/04/2025 11:00 AM EST Office Visit [facility] Adult Dentistry [address] [place] [address] Amos Gabby Pina documented as of this encounter Visit Diagnoses Not on filedocumented in this encounter Care Teams Fisher Hoop Net Relationship Specialty Start Date End Date Hector Gomez MD [address] [place], [place] [address] PCP - General 11/07/20 documented as of this encounter
--- OUTSIDE RECORDS SUMMARY | 2025-01-28 11:51 | XMS_ITS | Encounter Summary ---
Author Organization [facility] Address [address] [phone] Care Team Providers Care Winch Truck Operator Name Role Phone Hector Gomez MD Primary Care Provider [phone] Encounter Details Date Type Department Care Team (Late st Contact Info) Description 11/12/2019 Abstract [facility] [address] [place] [address] Dental, Provider, DDS [facility] [place], [place] [id number] Social History Tobacco Use Types Packs/Day Years [...] [facility]istry [address] [place] [address] Amos Gabby Pina documented as of this encounter Visit Diagnoses Not on filedocumented in this encounter Care Teams Winch Truck Operator Relationship Specialty Start Date End Date Hector Gomez MD [address] [place], [place] [address] PCP - General 11/07/20 documented as of this encounter
--- OUTSIDE RECORDS SUMMARY | 2025-01-28 11:51 | XMS_ITS | Clinical Summary ---
Author Organization [facility] Address [address] [place] [address] Care Team Providers Care Bindery Helper Name Role Phone Hector Gomez MD Primary Care Provider [phone] Allergies Active Allergy Reactions Criticality Noted Date [...] Description 01/04/2025 11:15 AM EDT Office Visit [facility] Adult Dentistry [address] [place] [address] Krystina Duran, PETEY Dental caries (Primary Dx) 01/04/2025 Travel 11/23/2024 11:00 AM EDT Office Visit [facility] Adult Dentistry [address] [place] [address] Gabby Trinidad Dental calculus (Primary Dx) 11/23/2024 [...] Description 07/04/2025 11:00 AM EST Office [facility] [address] [place] [address] Gabby Trinidad Health Maintenance Due Date Last Done Comments Dental X-Ray: Full Mouth 1944 [facility]-Bone Density Scan 1944 [facility]-Depression Screening 1944 [facility]-Medicare Annual Wellness (AWV) 1944 [facility]-/Child/Adol SDOH Screenings 1944 [facility]- SDOH Screenings 1962 [facility]-Adult SDOH Screenings 1962 [facility]-Zoster Vaccines (1 of 2) 1994 [facility]-RSV Vaccine: 60+ Years or (1 - 1-dose 75+ series) 2019 [id number] Vaccine ( season) 2024 06/30/2021, 09/15/2020, 08/18/2020 [...] Dental calculus from Last 3 Months Insurance [facility] MEDICARE Care Teams Bindery Helper Relationship Specialty Start Date End Date Hector Gomez MD [address] [place] [address] PCP - General 11/07/20
--- OUTSIDE RECORDS SUMMARY | 2025-01-28 11:51 | XMS_ITS | Clinical Summary ---
Author Organization [facility] Address [address] [facility] [place] [address] Phone Care Team Providers Care Teacher Instrumental Name Role Phone Hector Gomez MD Primary Care Provider [phone] Allergies Active Allergy Reactions Criticality Noted Date Comments No Known Drug Allergies Other (See Comments) 04/28/2017 No allergies to meds Spice Flavor Swelling 04/28/2017 Pepper, sesame, coconut and oregano Medications levothyroxine (SYNTHROID) 112 mcg Take 112 mcg by mouth daily methods study analyst. Active INFLIXIMAB (REMICADE IV) Inject into the vein. Every 8 weeks Active polyethylene glycol (GLYCOLAX, MIRALAX) 17 gram packet Take 17 g by mouth daily. Active loratadine (CLARITIN) 10 mg tablet Take 10 mg by mouth daily. As needed Active fluticasone (FLONASE) 50 mcg/actuation Nasl Chloride, Suspension 1 Chloride by Nasal route daily. Active mesalamine (LIALDA) [...] (04/20/2017): Added automatically from request for surgery [id number] Secondary cataract, left eye 01/18/2012 01/18/2012 Encounters Date Type Department Care Team Description 11/05/2024 10:45 AM EDT Office Visit [facility] [address] [place] [address] Sergio Wang MD Keratitis sicca [...] INTRAOCULAR LENS; Surgeon: Ricky Montiel MD; Location: [facility]; Service: Ophthalmology Medical devices from this surgery [...] EST Office Visit [facility] [address] [place] [address] Sergio Wang MD [address] [place] [address] Health Maintenance Due Date Last Done Comments [...] this topic Medical Devices Implanted Type Area Manager Metal Device Identifier Shelf Expiration Date Model / Serial / Lot Lens Intraocular Preloaded 20.0 Diopter - [id number] Implanted:Qty: 1 on 05/03/2017 by Ricky Montiel MD at [facility] Right: Eye [facility]:SURG 09/25/2019 [id number] / [id number] / Insurance MEDICARE PPO MR MEDICARE PPO MR MEDICARE PPO MR Care Teams Teacher Instrumental Relationship Specialty Start Date End Date Hector Gomez MD [address] [address] [place] [address] PCP - General Family Medicine 01/28/17
== END 2025-01-28 23:59 | disposition home or self-care (01) ==
LOC: RT 11:46
PROVIDERS: PCP Family Medicine; Visit Provider Nurse Practitioner
DX: I49.3 Ventricular premature depolarization (principal); I48.91 Unspecified atrial fibrillation; I48.92 Unspecified atrial flutter; I47.29 Other ventricular tachycardia; I45.89 Other specified conduction disorders; I49.1 Atrial premature depolarization; I10 Essential (primary) hypertension; R00.1 Bradycardia, unspecified
CPT/HCPCS: 93270

== ENCOUNTER 2025-02-01 12:09 | Inpatient (IN) | payer MEDICARE, SELFPAY ==
--- OUTSIDE RECORDS SUMMARY | 2017-12-29 10:50 | XMS_ITS | Continuity of Care Document ---
Author Organization [facility] Address [address] [place] [address] Phone Care Team Providers Care Graduate Nurse Name Role Phone Vianca NATHAN, Raymond Unavailable [...] Provider Providers Copied on Encounter [facility] [place], [facility] E [facility], [place], [address], tel:[phone] [facility] knee (chief complaint) No Information 8 Vianca Andrade. [address], [address], [place], [place], [id number], [place]. tel:[phone] Family History Family Member Type Diagnosis Age At Onset No Information Payers Payer name Insurance type Covered libertarian ID Stefan lowe(s) UHC Medicare - [id number] Social History Type Description Quantity Date Captured [...]
--- OUTSIDE RECORDS SUMMARY | 2017-12-29 10:50 | XMS_ITS | Continuity of Care Document ---
Author Organization [facility] Address [address] [place] [address] Phone Care Team Providers Care Micro Computer Specialist Name Role Phone Vianca NATHAN, Raymond Unavailable [...] Provider Providers Copied on Encounter [facility] [place], [facility] E [facility], [place], [address], tel:[phone] [facility] knee (chief complaint) No Information 8 Vianca Andrade. [address], [address], [place], [place], [id number], [place]. tel:[phone] Family History Family Member Type Diagnosis Age At Onset No Information Payers Payer name Insurance type Covered alliance party ID Stefan lowe(s) UHC Medicare - [id number] Social History Type Description Quantity Date Captured [...]
--- OUTSIDE RECORDS SUMMARY | 2024-11-23 11:00 | XMS_ITS | Encounter Summary ---
Author Organization Healthcare Address [address] [id number] Care Team Providers Care Commercial Real Estate Manager Name Role Phone Hector Gomez MD Primary Care Provider [phone] Reason for Visit * Reason Comments Routine Oral Cleaning Encounter Details Date Type Department Care Team (Late st Contact Info) Description 11/23/2024 11:00 AM EDT Office Visit [facility] Adult [facility] [address] [place] [address] Gabby Trinidad Dental calculus (Primary Dx) Social [...] 11:00 AM EDT [facility] Reviewed medical history Medical History[1] Medications Ordered [...] line-Observe #9-I porc chip-Observe #32- B- Decay yazidism needed #15- Dl- Rastafari needed #19 and #20-Observe around crown margins #19-T-zfalh-Rastafari needed Soft Tissue Exam: No path Radiographic [...] Description 07/04/2025 11:00 AM EST Office Visit [facility] [address] [place] [address] Gabby Trinidad Scheduled Orders Name Type Priority [...] documented as of this encounter Care Teams Commercial Real Estate Manager Relationship Specialty Start Date End Date Hector Gomez MD [address] [place] [address] PCP - General 11/07/20 documented as of this encounter
--- OUTSIDE RECORDS SUMMARY | 2024-12-12 11:00 | XMS_ITS | Encounter Summary ---
Author Organization [facility] Address [address] [id number] Care Team Providers Care Binder Fixer Name Role Phone Ricky Denney MD Primary Care Provider [phone] Reason for Visit * Episode Based Medications (Routine) - Authorized Specialty Diagnoses / Procedures Referred By Contac t Referred To Contact Diagnoses Crohn's disease without complication, unspecified gastrointestinal tract location Procedures [place] INFLIXIMAB NOT BIOSIMIL 10MG Dick Brown, PharmD [address] [place] [address] Phone: tel: Dick Brown, PharmD [address] [place] [address] Phone: tel: Referral ID Status Reason Start Date Expiration Date V isits Requested Visits Authorized [id number] Authorized 11/20/2024 11/20/2025 1 1 Encounter Details Date Type Department Care Team (Late st Contact Info) Description 12/12/2024 11:00 AM EDT Infusion [facility] OUTPATIENT ONCOLOGY AT [facility] [address] [facility] [place] [address] Crohn's disease without complication, unspecified gastrointestinal tract location (Primary Dx) Social History Tobacco Use Types Packs/Day Years Used Date Smoking Tobacco: Former Smokeless Tobacco: Never Alcohol Use Standard Drinks/Week Comments Yes 0 (1 standard drink = 0.6 oz pur e alcohol) Comments Unknown Sex and Gender Information Value Date Recorded Sex Assigned at Not on file Legal Sex Female 1:13 PM EDT Gender Identity Not on file Sexual Orientation Not on file documented as of this encounter Last Filed Vital Signs Vital Sign Reading Time Taken Comments Blood Pressure 122/58 12/12/2024 1:36 PM EDT Pulse 39 12/12/2024 1:36 PM EDT Temperature 36.5 C (97.7 F) 12/12/2024 10:54 AM EDT Respiratory Rate 18 12/12/2024 10:54 AM EDT Oxygen Saturation - - Inhaled Oxygen Concentration - - Weight 70 kg (154 lb 6.4 oz) 12/12/2024 10:54 AM EDT Height - - Body Mass Index 31.19 07/31/2024 1:39 PM EST documented in this encounter Plan of Treatment Upcoming Encounters Date Type Department Care Team (Late st Contact Info) Description 02/06/2025 11:00 AM EDT Hospital Encounter [facility] OUTPATIENT ONCOLOGY [address] [place] [address] documented as of this encounter Visit Diagnoses Diagnosis Crohn's disease without complication, unspecified gastrointestinal tract location- Primary documented in this encounter Administered Medications Inactive Administered Medications - up to 3 most recent administrations Medication Order MAR Action Action Date Dose Rate Site acetaminophen (TYLENOL) tablet 1,000 mg 1,000 mg, Oral, Once, On Tue12/12/24 at 1143, For 1 dose, Based on patient request - if ordered for moderate or severe pain, provider allows for administration of a medication prescribed for a lower pain scale. Do not exceed 4 grams of acetaminophen in a 24 hr period. Max dose of 2gm for AST/ALT greater than 120 units/L. If given for pain, use the following pain scale: Mild Pain = Pain Score of 1-3, CPOT 1-2 Moderate Pain = Pain Score of 4-6, CPOT 3-4 Severe Pain = Pain Score of 7-10, CPOT 5-8Indications:Crohn's disease without complication, unspecified gastrointestinal tract location Given 12/12/2024 11:03 AM EDT 1,000 mg cetirizine (zyrTEC) tablet 10 mg 10 mg, Oral, Once, On Tue12/12/24 at 1059, For 1 dose, Sub for loratadine;Indications:Crohn's disease without complication, unspecified gastrointestinal tract location Given 12/12/2024 11:03 AM EDT 10 mg inFLIXimab (REMICADE) 10 mg/kg = 700 mg in sodium chloride 0.9 % 250 mL IVPB 700 mg (10 mg/kg 70 kg), Intravenous, Administer over 120 Minutes, Once, On Tue12/12/24 at 1213, For 1 dose, Use an in-line, sterile, non-pyrogenic, low protein-binding filter with 1.2 micron or smaller pore size. Biosimilar Use Indication: defaulted medication has been selected as insurance preferred product. Caution: Look alike/sound alike drug alert . Infuse with an in-line low protein binding filter (<1.2 micron)Indications:Crohn's disease without complication, unspecified gastrointestinal tract location New Bag 12/12/2024 11:25 AM EDT 700 mg 125 mL/hr sodium chloride 0.9 % infusion 20 mL/hr, Intravenous, Once, On Tue12/12/24 at 1143, For 1 doseIndications:Crohn's disease without complication, unspecified gastrointestinal tract location New Bag 12/12/2024 11:25 AM EDT 20 mL/hr 20 mL/hr documented in this encounter Care Teams Binder Fixer Relationship Specialty Start Date End Date Ricky Denney MD [address] [place] [address] PCP - General Colon and Rectal Surgery 02/13/16 documented as of this encounter
--- OUTSIDE RECORDS SUMMARY | 2024-12-12 11:00 | XMS_ITS | Encounter Summary ---
Author Organization [facility] Address [address] [id number] Care Team Providers Care Senior National Account Manager Name Role Phone Ricky Denney MD Primary Care Provider [phone] Reason for Visit * Episode Based Medications (Routine) - Authorized Specialty Diagnoses / Procedures Referred By Contac t Referred To Contact Diagnoses Crohn's disease without complication, unspecified gastrointestinal tract location Procedures [place] INFLIXIMAB NOT BIOSIMIL 10MG Dick Brown, PharmD [address] [place] [address] Phone: tel: Dick Brown, PharmD [address] [place] [address] Phone: tel: Referral ID Status Reason Start Date Expiration Date V isits Requested Visits Authorized [id number] Authorized 11/20/2024 11/20/2025 1 1 Encounter Details Date Type Department Care Team (Late st Contact Info) Description 12/12/2024 11:00 AM EDT [facility]fusion [facility] AT [facility] [address] [facility] [place] [address] Crohn's disease without complication, unspecified [...] Description 02/06/2025 11:00 AM EDT Hospital Encounter [facility] [address] [place] [address] documented as of this encounter Visit Diagnoses [...] mL/hr documented in this encounter Care Teams Senior National Account Manager Relationship Specialty Start Date End Date Ricky Denney MD [address] [place] [address] PCP - General Colon and Rectal Surgery 02/13/16 documented as of this encounter
--- OUTSIDE RECORDS SUMMARY | 2025-01-04 11:15 | XMS_ITS | Encounter Summary ---
Author Organization Healthcare Address [address] [place] [address] Care Team Providers Care Senior Business Development Manager Name Role Phone Hector Gomez MD Primary Care Provider Encounter Details Date Type Department Care Team (Late st Contact Info) Description 01/04/2025 11:15 AM EDT Office Visit [facility] Adult [facility]istry [address] [place] [address] Krystina Duran, DMD [address] [facility] [address] [place] [address] Dental caries (Primary Dx) Social [...] accepted treatment plan. Pt reports no issues. Latter-Day material and procedure discussed with patient pre-operatively. [...] Description 07/04/2025 11:00 AM EST Office Visit [facility] [address] [place] [address] Gabby Trinidad documented as of this encounter [...] documented as of this encounter Care Teams Senior Business Development Manager Relationship Specialty Start Date End Date Hector Gomez MD [address] [address] [place] [address] PCP - General 11/07/20 documented as of this encounter
--- OUTSIDE RECORDS SUMMARY | 2025-01-04 11:15 | XMS_ITS | Encounter Summary ---
Author Organization Healthcare Address [address] [place] [address] Care Team Providers Care Claims Manager Name Role Phone Hector Gomez MD Primary Care Provider [phone] Encounter Details Date Type Department Care Team (Late st Contact Info) Description 01/04/2025 11:15 AM EDT Office Visit [facility] Adult Dentistry [address] [place] [address] Krystina Duran, DMD [address] [facility] [address] [place] [address] Dental caries (Primary Dx) Social [...] accepted treatment plan. Pt reports no issues. Amish material and procedure discussed with patient pre-operatively. [...] Description 07/04/2025 11:00 AM EST Office Visit [facility] Adult Dentistry [address] [place] [address] Gabby Trinidad documented as of this encounter [...] documented as of this encounter Care Teams Claims Manager Relationship Specialty Start Date End Date Hector Gomez MD [address] [address] [place] [address] PCP - General 11/07/20 documented as of this encounter
--- OUTSIDE RECORDS SUMMARY | 2025-01-29 15:30 | XMS_ITS | Encounter Summary ---
Author Organization [facility] Address [address] [id number] Care Team Providers Care Elastic Yarn Twister Helper Name Role Phone Ricky Denney MD Primary Care Provider [phone] Reason for Visit * Reason Comments Follow-up Follow up Crohn's Encounter Details Date Type Department Care Team (Late st Contact Info) Description 01/29/2025 3:30 PM EDT Office Visit [facility] [address] [facility] [address] [place] [address] Marcos Potts MD [address] [facility] [address] [place] [address] Immunosuppression due to drug therapy (Primary Dx); Crohn's disease of large intestine without complication; Constipation, unspecified constipation type Social History Tobacco Use Types Packs/Day Years [...] Sign Reading Time Taken Comments Blood Pressure - - Pulse - - Temperature - - Respiratory Rate - - Oxygen Saturation - - Inhaled Oxygen Concentration - - Weight 69.4 kg (153 lb) 01/29/2025 3:32 PM EDT Height 149.9 cm (4' 11 ) 01/29/2025 3:32 PM EDT Body Mass Index 30.9 01/29/2025 3:32 PM EDT documented in this encounter Progress Notes * Marcos Potts MD - 01/29/2025 3:30 PM EDT PCP: Ricky Denney MD No referring provider defined for this encounter. Chief Complaint Patient presents with Follow-up Follow up Crohn's HPI The patient is an 79-year-old with a long-term history of Crohn's colitis she is actually done wellover the last several years on Remicade. Her last colonoscopy was 09/24/2022. There was mainly scarring in the sigmoid but no active disease. She does have anal stenosis. She is doing well. She has nobleeding. She does tend towards constipation especially if she sits too long. Overall she is feeling that she is doing quite well. She has had blood work with Dr. Denney as well as her family physicianalthough I do not have those results. No Known Allergies Current Outpatient Medications: aspirin 325 MG tablet, Take 1 tablet by mouth Daily., Disp: , Rfl: atorvastatin (LIPITOR) 10 MG tablet, Take 1 tablet by mouth Daily., Disp: , Rfl: bisoprolol (ZEBeta) 5 MG tablet, Take 1 tablet by mouth Daily. 1/2 TAB/DAY, Disp: , Rfl: docusate sodium (COLACE) 100 MG capsule, Take 1 capsule by mouth 2 (Two) Times a Day., Disp: , Rfl: fluticasone (VERAMYST) 27.5 MCG/SPRAY nasal spray, 2 sprays into the nostril(s) as directed by provider Daily., Disp: , Rfl: hydrochlorothiazide (HYDRODIURIL) 25 MG tablet, Take 1 tablet by mouth Daily., Disp: , Rfl: inFLIXimab (REMICADE IV), Infuse into a venous catheter., Disp: , Rfl: levothyroxine (SYNTHROID, LEVOTHROID) 112 MCG tablet, Take 75 mcg by mouth Every Morning., Disp: , Rfl: losartan (COZAAR) 50 MG tablet, Take 1 tablet by mouth Daily., Disp: , Rfl: Natural Vitamin D-3 125 MCG (5000 UT) tablet, , Disp: , Rfl: potassium chloride (MICRO-K) 10 MEQ CR capsule, Take 1 capsule by mouth Every 12 (Twelve) Hours., Disp: , Rfl: Restasis 0.05 % ophthalmic emulsion, , Disp: , Rfl: vitamin B-12 (CYANOCOBALAMIN) 1000 MCG tablet, Take 1 tablet by mouth Daily., Disp: , Rfl: Past Medical History: Diagnosis Date Carpal tunnel syndrome on left Crohn's disease Hypertension Melkersson-Nunu syndrome Stroke Past Surgical History: Procedure Laterality Date ANKLE STABILIZATION Left CHOLECYSTECTOMY Social History Socioeconomic History Marital status: Tobacco Use Smoking status: Former Smokeless tobacco: Never Substance and Sexual Activity Alcohol use: Yes Drug use: No Sexual activity: Defer History reviewed. No pertinent family history. Review of Systems There were no vitals filed for this visit. Physical Exam Constitutional: Appearance: Normal appearance. Neurological: Mental Status: She is alert. Diagnoses and all orders for this visit: 1. Immunosuppression due to drug therapy (Primary): She has been stable but has been getting blood work with her other providers. 2. Crohn's disease of large intestine without complication: She has long-term Crohn's colitis. We talked about the increased incidence of colorectal neoplasia developing. Given her age we discussed the options of taking a watch and wait attitude versus reevaluating. At this point she feels like shewould like to get reevaluated and I think that is quite reasonable. 3. Constipation, unspecified constipation type: She seems to be doing reasonably well from this standpoint. Marcos Potts MD documented in this encounter Plan of Treatment Upcoming Encounters Date Type Department Care Team (Late st Contact Info) Description 02/06/2025 11:00 AM EDT Hospital Encounter [facility] OUTPATIENT ONCOLOGY [address] [place] [address] documented as of this encounter Visit Diagnoses Diagnosis Immunosuppression due to drug therapy- Primary Crohn's disease of large intestine without complication Constipation, unspecified constipation type documented in this encounter Care Teams Elastic Yarn Twister Helper Relationship Specialty Start Date End Date Ricky Denney MD [address] [place] [address] PCP - General Colon and Rectal Surgery 02/13/16 documented as of this encounter
--- OUTSIDE RECORDS SUMMARY | 2025-01-29 15:30 | XMS_ITS | Encounter Summary ---
Author Organization [facility] Address [address] [id number] Care Team Providers Care Retirement Sales Consultant Name Role Phone Ricky Denney MD Primary Care Provider [phone] Reason for Visit * Reason Comments Follow-up Follow up Crohn's Encounter Details Date Type Department Care Team (Late st Contact Info) Description 01/29/2025 3:30 PM EDT Office Visit [facility] [address] [facility] [address] [place] [address] Marcos Potts MD [address] [facility] [address] [place] [address] Immunosuppression due to drug therapy (Primary Dx); [...] Description 02/06/2025 11:00 AM EDT Hospital Encounter [facility] OUTPATIENT [facility] [address] [facility] [place] [address] documented as of this encounter Visit Diagnoses Diagnosis Immunosuppression due to drug therapy- Primary Crohn's disease of large intestine without complication Constipation, unspecified constipation type documented in this encounter Care Teams Retirement Sales Consultant Relationship Specialty Start Date End Date Ricky Denney MD [address] [place] [address] PCP - General Colon and Rectal Surgery 02/13/16 documented as of this encounter
[2025-02-01] VITALS (22 sets, daily range): BP systolic 90–144; BP diastolic 53–94; PULSE 78–150; RESP 11–30; TEMP 36.8–36.9; O2SAT 90–97; BMI 30.9; BMI 31.2
--- NOTE | 2025-02-01 12:17 | ECG_ITS ---
APPROVED REPORT Exam: Resting ECG HR:141 bpm ECG Measurements Heart Rate 141 AXES QRSd 89 QRS -48 QT 319 T 51 QTc 401 Conclusion ATRIAL FIBRILLATION WITH RAPID VENTRICULAR RESPONSE WITH ABERRANT CONDUCTION OR VENTRICULAR PREMATURE COMPLEXES LEFT ANTERIOR FASCICULAR BLOCK [QRS AXIS <= -45, QR IN I, RS IN II] MODERATE ST DEPRESSION [0.05+ mV ST DEPRESSION] ABNORMAL ECG UNCONFIRMED REPORT A-fib with RVR with ventricular rate of [address]. [address] depression in V4 and V5 with no reciprocal changes Electronically signed by : SWATHI POWELL, 02/02/2025 07:47:53
--- OUTSIDE RECORDS SUMMARY | 2025-02-01 12:17 | XMS_ITS | Clinical Summary ---
Author Organization [facility] Address [address] [place] [address] Phone Care Team Providers Care Drainage Engineer Name Role Phone Unavailable Unavailable Conditions or Problems No information available. Medications No information available. Medications Administered No information available. Allergies, Adverse Reactions, Alerts No information available. Results No information available. Plan of Care No information available. Procedures No information available. Vital Signs No information available. Immunizations No information available. Advance Directives No information available.
--- OUTSIDE RECORDS SUMMARY | 2025-02-01 12:18 | XMS_ITS | Clinical Summary ---
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); Crohn's disease of large intestine without complication; Constipation, unspecified constipation type 01/29/2025 Travel 12/12/2024 11:00 AM EDT Infusion [facility] AT [facility] [address] [place] [address] Crohn's disease without complication, unspecified [...] EDT Inhaled Oxygen Concentration - - Weight 69.4 kg (153 lb) 01/29/2025 3:32 PM EDT Height 149.9 cm (4' 11 ) 01/29/2025 3:32 PM EDT Body Mass Index 30.9 01/29/2025 3:32 PM EDT Plan of Treatment Upcoming Encounters Date Type Department Care Team (Late st Contact Info) Description 02/06/2025 11:00 AM EDT Hospital Encounter [facility] [address] [place] [address] Health Maintenance Due Date Last Done Comments [...] Insurance [employer] PPO Care Teams Mail Order Sorter Relationship Specialty Start Date End Date Ricky Denney MD [address] [place] [address] PCP - General Colon and Rectal Surgery 02/13/16
--- OUTSIDE RECORDS SUMMARY | 2025-02-01 12:18 | XMS_ITS | Encounter Summary ---
Author Organization Healthcare Address [address] [id number] Care Team Providers Care Gardening Manager Name Role Phone Hector Gomez MD Primary Care Provider [phone] Encounter Details Date Type Department Care Team (Late st Contact Info) Description 11/12/2019 [facility] [address] [place] [address] Dental, Provider, DDS [facility] [place] [id number] Social History Tobacco Use Types Packs/Day Years [...] 07/04/2025 11:00 AM EST Office Visit [facility] [address] [place] [address] Amos Gabby Silvana documented as of this encounter Visit Diagnoses Not on filedocumented in this encounter Care Teams Gardening Manager Relationship Specialty Start Date End Date Hector Gomez MD [address] [place], [place] [address] PCP - General 11/07/20 documented as of this encounter
--- OUTSIDE RECORDS SUMMARY | 2025-02-01 12:18 | XMS_ITS | Clinical Summary ---
Author Organization [facility] Address [address] [place] [address] Care Team Providers Care Management Planner Name Role Phone Hector Gomez MD Primary Care Provider [phone] Source Comments This information has been disclosed [...] therelease of HIV test results or diagnoses. [id number] Allergies Active Allergy Reactions Criticality Noted Date Comments Egg Derived 12/02/2013 Medications rnoqekct-lovm-f in-folic acid (CENTRUM) 3,500-18-0.4 unit-mg-mg Chew Chew [...] Advance Directives For more information, please contact: [phone] * Full Code (Latest Code Status on File) Date Activated Date Inactivated Comments 07/05/2022 8:45 PM 07/07/2022 10:06 PM Care Teams Management Planner Relationship Specialty Start Date End Date Hector Gomez MD [address] [facility] [address] [place] [id number] PCP - General Family Medicine 07/06/22
--- OUTSIDE RECORDS SUMMARY | 2025-02-01 12:18 | XMS_ITS | Encounter Summary ---
Author Organization Healthcare Address [address] [place] [address] Care Team Providers Care Bar Tacker Sewing Machine Name Role Phone Hector Gomez MD Primary Care Provider [phone] Encounter Details Date Type Department Care Team [...] Description 07/04/2025 11:00 AM EST Office Visit [facility] [address] [place] [address] Gabby Trinidad documented as of this encounter Visit Diagnoses Not on filedocumented in this encounter Additional Health Concerns Assessment Noted Time A Body Mass Index follow-up plan has been documented for the patient 01/04/2025 4:46 PM EDT documented as of this encounter Care Teams Bar Tacker Sewing Machine Relationship Specialty Start Date End Date Hector Gomez MD [address] [place] [address] PCP - General 11/07/20 documented as of this encounter
--- OUTSIDE RECORDS SUMMARY | 2025-02-01 12:18 | XMS_ITS | Clinical Summary ---
Author Organization [facility] Address [address] [place] [address] Care Team Providers Care Editing Computer Publisher Name Role Phone Hector Gomez MD Primary Care Provider [phone] Allergies Active Allergy Reactions Criticality Noted Date [...] Description 01/04/2025 11:15 AM EDT Office Visit [facility] [address] [place] [address] Krystina Duran, PETEY Dental caries (Primary Dx) 01/04/2025 Travel 11/23/2024 11:00 AM EDT Office Visit [facility] [address] [place] [address] Gabby Trinidad Dental calculus (Primary Dx) 11/23/2024 [...] Description 07/04/2025 11:00 AM EST Office Visit [facility] [address] [place] [address] Gabby Trinidad Health Maintenance Due Date Last Done Comments Dental X-Ray: Full Mouth 1944 [facility]-Bone Density Scan 1944 [facility]-Depression Screening 1944 [facility]-Medicare Annual Wellness (AWV) 1944 [facility]-/Child/Adol SDOH Screenings 1944 [facility]- SDOH Screenings 1962 [facility]-Adult SDOH Screenings 1962 [facility]-Zoster Vaccines (1 of 2) 1994 [facility]-RSV Vaccine: 60+ Years or (1 - 1-dose 75+ series) 2019 [id number] Vaccine ( season) 2024 06/30/2021, 09/15/2020, 08/18/2020 [...] Dental calculus from Last 3 Months Insurance [facility] MEDICARE Care Teams Editing Computer Publisher Relationship Specialty Start Date End Date Hector Gomez MD [address] [place] [address] PCP - General 11/07/20
--- OUTSIDE RECORDS SUMMARY | 2025-02-01 12:18 | XMS_ITS | Encounter Summary ---
Author Organization Healthcare Address [address] [id number] Care Team Providers Care Grid Casting Machine Operator Helper Name Role Phone Hector Gomez MD Primary Care Provider [phone] Encounter Details Date Type Department Care Team (Late st Contact Info) Description 11/12/2019 [facility] [address] [place] [address] Dental, Provider, DDS [facility] [place] [id number] Social History Tobacco Use Types Packs/Day Years [...] Description 07/04/2025 11:00 AM EST Office Visit [facility] Adult [facility] [address] [place] [address] Amos Gabby Silvana documented as of this encounter Visit Diagnoses Not on filedocumented in this encounter Care Teams Grid Casting Machine Operator Helper Relationship Specialty Start Date End Date Hector Gomez MD [address] [place], [place] [address] PCP - General 11/07/20 documented as of this encounter
--- OUTSIDE RECORDS SUMMARY | 2025-02-01 12:18 | XMS_ITS | Encounter Summary ---
Author Organization [facility] Address [address] [place] [address] Care Team Providers Care Airplane Electrician Name Role Phone Ricky Denney MD Primary Care Provider [phone] Encounter Details Date Type Department Care Team [...] Description 02/06/2025 11:00 AM EDT Hospital Encounter [facility] [address] [place] [address] documented as of this encounter Visit Diagnoses Not on filedocumented in this encounter Care Teams Airplane Electrician Relationship Specialty Start Date End Date Ricky Denney MD [address] [place] [address] PCP - General Colon and Rectal Surgery 02/13/16 documented as of this encounter
--- OUTSIDE RECORDS SUMMARY | 2025-02-01 12:18 | XMS_ITS | Encounter Summary ---
Author Organization Healthcare Address [address] [phone] Care Team Providers Care Visual Inspector Name Role Phone Hector Gomez MD Primary Care Provider [phone] Encounter Details Date Type Department Care Team (Late st Contact Info) Description 11/12/2019 [facility] [address] [place] [address] Dental, Provider, DDS [facility] [place] [id number] Social History Tobacco Use Types Packs/Day Years [...] Description 07/04/2025 11:00 AM EST Office Visit [facility] [address] [place] [address] Amos Gabby Silvana documented as of this encounter Visit Diagnoses Not on filedocumented in this encounter Care Teams Visual Inspector Relationship Specialty Start Date End Date Hector Gomez MD [address] [place], [place] [address] PCP - General 11/07/20 documented as of this encounter
--- OUTSIDE RECORDS SUMMARY | 2025-02-01 12:18 | XMS_ITS | Encounter Summary ---
Author Organization [facility] Address [address] [place] [address] Care Team Providers Care Counselor At Law Name Role Phone Ricky Denney MD Primary Care Provider [phone] Encounter Details Date Type Department Care Team (Latest Contact Info) Description 01/29/2025 Travel Social History Tobacco Use Types Packs/Day [...] Description 02/06/2025 11:00 AM EDT Hospital Encounter [facility] [address] [place] [address] documented as of this encounter Visit Diagnoses Not on filedocumented in this encounter Care Teams Counselor At Law Relationship Specialty Start Date End Date Ricky Denney MD [address] [place] [address] PCP - General Colon and Rectal Surgery 02/13/16 documented as of this encounter
--- OUTSIDE RECORDS SUMMARY | 2025-02-01 12:18 | XMS_ITS | Clinical Summary ---
Author Organization [facility] Address [address] [facility] [address] [place] [address] Phone Care Team Providers Care Athletic Director Name Role Phone Hector Gomez MD Primary Care Provider [phone] Allergies Active Allergy Reactions Criticality Noted Date Comments No Known Drug Allergies Other (See Comments) 04/28/2017 No allergies to meds Spice Flavor Swelling 04/28/2017 Pepper, sesame, coconut and oregano Medications levothyroxine (SYNTHROID) 112 mcg Take 112 mcg by mouth daily speech therapist early intervention. Active INFLIXIMAB (REMICADE IV) Inject into the vein. Every 8 weeks Active polyethylene glycol (GLYCOLAX, MIRALAX) 17 gram packet Take 17 g by mouth daily. Active loratadine (CLARITIN) 10 mg tablet Take 10 mg by mouth daily. As needed Active fluticasone (FLONASE) 50 mcg/actuation Nasl Cullen, Suspension 1 Cullen by Nasal route daily. Active mesalamine (LIALDA) [...] (04/20/2017): Added automatically from request for surgery [id number] Secondary cataract, left eye 01/18/2012 01/18/2012 Encounters Date Type Department Care Team Description 11/05/2024 10:45 AM EDT Office Visit [facility] [address] [place] [address] Sergio Wang MD Keratitis sicca [...] INTRAOCULAR LENS; Surgeon: Ricky Montiel MD; Location: [facility]; Service: Ophthalmology Medical devices from [...] EST Office Visit [facility] [address] [place] [address] Sergio Wang MD [address] [place] [address] Health Maintenance Due Date Last Done Comments [...] this topic Medical Devices Implanted Type Area Orange Peel Operator Device Identifier Shelf Expiration Date Model / Serial / Lot Lens Intraocular Preloaded 20.0 Diopter - [id number] Implanted:Qty: 1 on 05/03/2017 by Ricky Montiel MD at [facility] Right: Eye [facility] 09/25/2019 [id number] / [id number] / [place] [address] MEDICARE PPO [place] MEDICARE PPO MR Care Teams Athletic Director Relationship Specialty Start Date End Date Hector Gomez MD [address] [address] [address] [place] [address] PCP - General Family Medicine 01/28/17
--- NOTE | 2025-02-01 12:31 | HMH.EDGENADL ---
Discharge Plan Disposition Patient Disposition: Admitted Clinical Impressions Clinical Impression: Afib Discharge ED Provider: Richmond Zaidi General Adult HPI <LEIGH Holland - Last Filed: 02/01/25 15:00> General Chief complaint: Arrhythmia/Palpitations Stated complaint: Heart monitor readings Time Seen by Provider: 02/01/25 12:13 Mode of Arrival: Ambulatory Source of Information: Patient Description of Symptoms (Recalled from ER Triage Doc. by RN): pt is here bc cardiology office called her and told her to go to ER according to monitor, pt has afib with rvr per triage ekg, pt is alox4 and stable History of Present Illness HPI narrative: Patient presents for A-fib with RVR. She was sent by cardiology. They report that she has been on bisoprolol, propranolol and metoprolol this week without any improvement in her heart rate. She was prescribed Xarelto yesterday however has not started this. She denies any palpitations, chest pain, shortness of breath. MD complaint: A fib with RVR Onset (ago): day(s) Radiation: non-radiation Severity: mild Quality: other (denies pain ) Consistency: constant Relieving factors: none Exacerbating factors: none Associated symptoms: denies other symptoms Related Data Home Medications ?Medication ?Instructions ?Recorded ?Confirmed albuterol sulfate 90 mcg/actuation 2 puff inhalation Q4HP PRN 02/01/25 02/01/25 aerosol inhaler shortness of breath or wheezing aspirin 325 mg tablet 325 mg PO DAILY 02/01/25 02/01/25 hydrochlorothiazide 25 mg tablet 25 mg PO DAILY 02/01/25 02/01/25 levothyroxine 75 mcg tablet 75 mcg PO DAILY 02/01/25 02/01/25 losartan 50 mg tablet 50 mg PO DAILY 02/01/25 02/01/25 potassium chloride 10 mEq 10 meq PO BID 02/01/25 02/01/25 capsule,extended release rivaroxaban 20 mg tablet (Xarelto) 20 mg PO QPMWITHMEAL 02/01/25 02/01/25 Previous Rx's ?Medication ?Instructions ?Recorded cholecalciferol (vitamin D3) 125 125 mcg PO DAILY #30 tabs 11/07/24 mcg (5,000 unit) tablet cyanocobalamin (vitamin B-12) 1,000 mcg PO DAILY #30 tabs 11/07/24 1,000 mcg tablet cetirizine 10 mg tablet 10 mg PO DAILY #30 tabs 11/27/24 metoprolol succinate 25 mg 25 mg PO DAILY #30 tabs 01/31/25 tablet,extended release 24 hr (Toprol XL) Allergies Allergy/AdvReac Type Severity Reaction Status Date / Time cinnamon Allergy Intermediate facial Verified 02/01/25 15:39 swelling coconut Allergy Intermediate Facial Verified 02/01/25 15:39 swelling juan antonio Allergy Intermediate Facial Verified 02/01/25 15:39 swelling oregano Allergy Intermediate Facial Verified 02/01/25 15:39 swelling pepper (genus Capsicum) Allergy Intermediate facial Verified 02/01/25 15:39 swelling sesame seed Allergy Intermediate facial Verified 02/01/25 15:39 swelling PFSH <LEIGH Holland - Last Filed: 02/01/25 15:00> PFSH Disclaimer: The information contained in this section may have been updated after the patient was seen, as this information can be updated by other users. 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 Vitamin B12 deficiency Vitamin D deficiency Insect bite Hypokalemia Tricuspid regurgitation Left knee pain Neuritis Ventricular tachycardia PSVT (paroxysmal supraventricular tachycardia) PVC (premature ventricular contraction) PAC (premature atrial contraction) Anal stenosis Hemorrhoids Acquired anal stenosis Crohn's disease Acquired hypothyroidism CVA (cerebral vascular accident) Wrist fracture SOB (shortness of breath) Bradycardia HLD (hyperlipidemia) HTN (hypertension) CAD (coronary artery disease) Surgical History History of loop recorder Hx of cataract surgery History of appendectomy History of carpal tunnel surgery History of hysterectomy History of cholecystectomy History of ankle surgery Family History Coronary artery disease Social History Smoking Status: Never smoker alcohol intake: current substance use type: denies use current occupational status: unemployed and retired Travel in the last 8 weeks?: Inside the [place] caffeine: Yes Have you lived/traveled outside [place] in past 30 days?: No Contact w/someone who lives/traveled outside [place] past 30 days?: No Exposure to someone with infectious disease in past 14 days?: No Do you have a fever (greater than 100.4 F or 38 C)?: No Have you tested positive for COVID-19?: No Exposed to someone with COVID-19 in past 14 days?: No Do you have a sore throat?: No Do you have a cough?: No Do you have any weakness?: No Do you have any diarrhea?: No Are you experiencing any unusual bleeding?: No Do you have any muscle aches/pain?: No Do you have any abdominal pain?: No Are you experiencing loss of taste or smell?: No Other Medical History Have you received the Flu Vaccine for this season: No Have you received the Pneumonia Vaccine: Yes <LEIGH Holland - Last Filed: 02/01/25 15:00> ROS Obtained: Yes Systems reviewed as appropriate & no additional complaints except as documented Physical Exam <LEIGH Holland - Last Filed: 02/01/25 15:00> General General appearance: alert and in no apparent distress Head Head exam: atraumatic and normocephalic Eye Eye exam: Present normal appearance and EOMI Chest Chest inspection: Present symmetric chest wall rise Respiratory Respiratory exam: Present normal lung sounds bilaterally; Absent wheezes or stridor Cardiovascular Cardiovascular exam: Present tachycardia and irregular rhythm; Absent systolic murmur Neurological Exam Neurological exam: Present alert and oriented X3 Psychiatric Psychiatric exam: Present normal affect and normal mood Skin Skin exam: Present warm, dry and intact Medical Decision Making <LEIGH Holland - Last Filed: 02/01/25 15:00> Medical Records Screening: Per USPSTF and CDC recommendations, given the prevalence of disease in our region, it is our hospital?s policy to screen for HIV and viral Hepatitis for all patients aged 18 and over and those with ongoing risk factors. Jeffery Inquiry Pt receiving controlled substance: No Vital Signs: 02/01/25 12:22 02/01/25 12:31 02/01/25 13:00 Temperature 98.4 F Temperature Source Oral Pulse Rate 129 H 131 H Pulse Rate [Left Radial] 150 H Respiratory Rate 25 H 24 11 L Blood Pressure 114/69 107/76 L Blood Pressure [Right Arm] 135/94 H Blood Pressure Mean [Right Arm] 107 02 Sat by Pulse Oximetry 96 93 L 93 L Oxygen Delivery Method Room Air 02/01/25 13:45 02/01/25 14:37 02/01/25 14:49 Temperature 98.2 F Temperature Source Pulse Rate 128 H 134 H Pulse Rate [Left Radial] 142 H Respiratory Rate 17 15 Blood Pressure 107/62 L 108/86 L Blood Pressure [Right Arm] Blood Pressure Mean [Right Arm] 02 Sat by Pulse Oximetry 91 L 95 Oxygen Delivery Method Room Air Room Air Lab Data Lab Results 02/01/25 12:23: WBC 10.4, RBC 3.99 L, Hgb 12.0 L, Hct 36.3 L, MCV 91.0, MCH 30.1, MCHC 33.1, RDW 13.3, Plt Count 420, MPV 10.4, Neut % (Auto) 68.1, Lymph % (Auto) 22.4, [place] % (Auto) 7.9, Eos % (Auto) 1.0, Baso % (Auto) 0.3, Neut # (Auto) 7.1, Lymph # (Auto) 2.3, [place] # (Auto) 0.8, Eos # (Auto) 0.1, Baso # (Auto) 0.0, Sodium 134 L, Potassium 3.4 L, Chloride 104, Carbon Dioxide 26, Anion Gap 7.4, BUN 12, Creatinine 0.90, Estimated Creat Clear 49, Estimated GFR 60, Est GFR ( Amer) 73, Glucose 100, Calcium 9.5, Magnesium 1.8, Total Bilirubin 0.6, AST 38 H, ALT 23, Alkaline Phosphatase 106, Troponin I 0.10 H, Total Protein 6.9, Albumin 4.0, Globulin 2.9, Albumin/Globulin Ratio 1.4, TSH 1.73, Free T4 Index 4.1 L, Thyroxine (T4) 11.3 H, T3 Uptake 36 02/01/25 12:23 02/01/25 12:23 Orders (Tests/Meds): ED MEDICATIONS Generic Name Dose Route Start Last Admin Trade Name Freq PRN Reason Stop Dose Admin Acetaminophen 650 mg 02/01/25 13:42 Acetaminophen 325mg Tab PO 03/03/25 13:41 Q4HP PRN Fever or Mild Pain (1-3) Diltiazem HCl 60 mg 02/01/25 14:00 02/01/25 15:28 Diltiazem 30mg Tablet PO 03/03/25 13:59 60 mg Q8H ROB Administration Enoxaparin Sodium 70 mg 02/01/25 14:00 02/01/25 15:29 Enoxaparin 80mg/0.8ml Syringe SUBCUT 03/03/25 13:59 70 mg Q12H ROB Administration Hydrochlorothiazide 25 mg 02/02/25 09:00 Hydrochlorothiazide 25mg Tablet PO 03/04/25 08:59 DAILY ROB Diltiazem HCl 100 mg/ Sodium 100 mls @ 5 mls/hr 02/01/25 13:37 02/01/25 19:22 Chloride IV 03/03/25 13:36 5 mg/hr .Q20H ROB 5 mls/hr Protocol Titration 5 MG/HR Levothyroxine Sodium 75 mcg 02/02/25 07:00 Levothyroxine 75mcg (0.075mg) Tab PO 03/04/25 06:59 DAILYDM ROB Metoprolol Succinate 25 mg 02/02/25 09:00 Metoprolol Succinate Xl 25mg Tablet PO 03/04/25 08:59 DAILY ROB Sodium Chloride 10 ml 02/01/25 12:28 Sodium Chloride 0.9% 10ml Flush Syringe IV 03/03/25 12:27 NEEDED PRN Maintain IV Site Discontinued Medications Generic Name Dose Route Start Last Admin Trade Name Freq PRN Reason Stop Dose Admin Diltiazem HCl 10 mg 02/01/25 13:35 02/01/25 13:51 Diltiazem 25mg/5ml Vial IV 02/01/25 13:36 10 mg ONCE ONE Administration Metoprolol Tartrate 5 mg 02/01/25 12:28 02/01/25 12:37 Metoprolol Tartrate 5mg/5ml Vial IV 02/01/25 12:29 5 mg ONCE ONE Administration Potassium Chloride 40 meq 02/01/25 15:15 02/01/25 19:18 Potassium Chloride 20meq Tab PO 02/01/25 19:16 40 meq Q4H ROB Administration ORDERS Category Date Time Status Cardiology Consult [Consult to Cardiology] [CONS] Cons 02/01/25 13:45 Active Routine CBC w/Auto Diff [Complete Blood Count Auto Diff] Stat Lab 02/01/25 12:23 Completed CMP [Comprehensive Metabolic Panel] Stat Lab 02/01/25 12:23 Completed Complete Blood Count Auto Diff AMLAB Lab 02/02/25 06:00 Ordered Comprehensive Metabolic Panel AMLAB Lab 02/02/25 06:00 Ordered Magnesium AMLAB Lab 02/02/25 06:00 Ordered Magnesium Stat Lab 02/01/25 12:23 Completed Thyroid Panel Stat Lab 02/01/25 12:23 Completed Troponin I Q3H Lab 02/01/25 16:35 Completed Troponin I Q3H Lab 02/01/25 19:10 Completed Troponin I Stat Lab 02/01/25 12:23 Completed Medical Decision Narrative: In summary patient is a 79-year-old female who presents the emergency department for evaluation of A-fib with RVR. Patient is blood pressure stable upon arrival, afebrile. Irregular heart rate on exam. Differential diagnosis includes A-fib, A-fib with RVR, electrolyte abnormality, thyroid abnormality. Initial workup will be conducted with hematologic labs, EKG. Initial inventions include IV metoprolol. I did discuss this patient with Josse Garner physician assistant women's tennis coach with cardiology. They advised offering the patient discharge home and follow-up next week versus admission and likely pacemaker placement on Tuesday. I discussed with the patient the options, advising that I was concerned about her persistent tachycardia despite beta blockers. She is agreeable to admission. Cardiology also advised that patient had reported shortness of breath at home. She reports when she was up working she was experiencing some dyspnea. Initial workup reviewed by me slightly elevated troponin. Upon repeat evaluation no improvement of tachycardia with metoprolol. She was given a bolus of Cardizem and had improvement of tachycardia, however did experience some mild hypotension. This resolved and patient was asymptomatic. Held off on Cardizem drip until blood pressure showed further improvement. Given this patient was admitted. <Richmond Zaidi MD - Last Filed: 02/01/25 21:24> Vital Signs: 02/01/25 12:22 02/01/25 12:31 02/01/25 13:00 Temperature 98.4 F Temperature Source Oral Pulse Rate 129 H 131 H Pulse Rate [Left Radial] 150 H Respiratory Rate 25 H 24 11 L Blood Pressure 114/69 107/76 L Blood Pressure [Right Arm] 135/94 H Blood Pressure Mean [Right Arm] 107 02 Sat by Pulse Oximetry 96 93 L 93 L Oxygen Delivery Method Room Air 02/01/25 13:45 02/01/25 14:37 02/01/25 14:49 Temperature 98.2 F Temperature Source Pulse Rate 128 H 134 H Pulse Rate [Left Radial] 142 H Respiratory Rate 17 15 Blood Pressure 107/62 L 108/86 L Blood Pressure [Right Arm] Blood Pressure Mean [Right Arm] 02 Sat by Pulse Oximetry 91 L 95 Oxygen Delivery Method Room Air Room Air Lab Data Lab Results 02/01/25 12:23: WBC 10.4, RBC 3.99 L, Hgb 12.0 L, Hct 36.3 L, MCV 91.0, MCH 30.1, MCHC 33.1, RDW 13.3, Plt Count 420, MPV 10.4, Neut % (Auto) 68.1, Lymph % (Auto) 22.4, [place] % (Auto) 7.9, Eos % (Auto) 1.0, Baso % (Auto) 0.3, Neut # (Auto) 7.1, Lymph # (Auto) 2.3, [place] # (Auto) 0.8, Eos # (Auto) 0.1, Baso # (Auto) 0.0, Sodium 134 L, Potassium 3.4 L, Chloride 104, Carbon Dioxide 26, Anion Gap 7.4, BUN 12, Creatinine 0.90, Estimated Creat Clear 49, Estimated GFR 60, Est GFR ( Amer) 73, Glucose 100, Calcium 9.5, Magnesium 1.8, Total Bilirubin 0.6, AST 38 H, ALT 23, Alkaline Phosphatase 106, Troponin I 0.10 H, Total Protein 6.9, Albumin 4.0, Globulin 2.9, Albumin/Globulin Ratio 1.4, TSH 1.73, Free T4 Index 4.1 L, Thyroxine (T4) 11.3 H, T3 Uptake 36 Orders (Tests/Meds): ED MEDICATIONS Generic Name Dose Route Start Last Admin Trade Name Freq PRN Reason Stop Dose Admin Acetaminophen 650 mg 02/01/25 13:42 Acetaminophen 325mg Tab PO 03/03/25 13:41 Q4HP PRN Fever or Mild Pain (1-3) Diltiazem HCl 60 mg 02/01/25 14:00 02/01/25 15:28 Diltiazem 30mg Tablet PO 03/03/25 13:59 60 mg Q8H ROB Administration Enoxaparin Sodium 70 mg 02/01/25 14:00 02/01/25 15:29 Enoxaparin 80mg/0.8ml Syringe SUBCUT 03/03/25 13:59 70 mg Q12H ROB Administration Hydrochlorothiazide 25 mg 02/02/25 09:00 Hydrochlorothiazide 25mg Tablet PO 03/04/25 08:59 DAILY ROB Diltiazem HCl 100 mg/ Sodium 100 mls @ 5 mls/hr 02/01/25 13:37 02/01/25 19:22 Chloride IV 03/03/25 13:36 5 mg/hr .Q20H ROB 5 mls/hr Protocol Titration 5 MG/HR Levothyroxine Sodium 75 mcg 02/02/25 07:00 Levothyroxine 75mcg (0.075mg) Tab PO 03/04/25 06:59 DAILYDM ROB Metoprolol Succinate 25 mg 02/02/25 09:00 Metoprolol Succinate Xl 25mg Tablet PO 03/04/25 08:59 DAILY ROB Sodium Chloride 10 ml 02/01/25 12:28 Sodium Chloride 0.9% 10ml Flush Syringe IV 03/03/25 12:27 NEEDED PRN Maintain IV Site Discontinued Medications Generic Name Dose Route Start Last Admin Trade Name Freq PRN Reason Stop Dose Admin Diltiazem HCl 10 mg 02/01/25 13:35 02/01/25 13:51 Diltiazem 25mg/5ml Vial IV 02/01/25 13:36 10 mg ONCE ONE Administration Metoprolol Tartrate 5 mg 02/01/25 12:28 02/01/25 12:37 Metoprolol Tartrate 5mg/5ml Vial IV 02/01/25 12:29 5 mg ONCE ONE Administration Potassium Chloride 40 meq 02/01/25 15:15 02/01/25 19:18 Potassium Chloride 20meq Tab PO 02/01/25 19:16 40 meq Q4H ROB Administration ORDERS Category Date Time Status Cardiology Consult [Consult to Cardiology] [CONS] Cons 02/01/25 13:45 Active Routine CBC w/Auto Diff [Complete Blood Count Auto Diff] Stat Lab 02/01/25 12:23 Completed CMP [Comprehensive Metabolic Panel] Stat Lab 02/01/25 12:23 Completed Complete Blood Count Auto Diff AMLAB Lab 02/02/25 06:00 Ordered Comprehensive Metabolic Panel AMLAB Lab 02/02/25 06:00 Ordered Magnesium AMLAB Lab 02/02/25 06:00 Ordered Magnesium Stat Lab 02/01/25 12:23 Completed Thyroid Panel Stat Lab 02/01/25 12:23 Completed Troponin I Q3H Lab 02/01/25 16:35 Completed Troponin I Q3H Lab 02/01/25 19:10 Completed Troponin I Stat Lab 02/01/25 12:23 Completed ECG Data Tracing #1: I reviewed this ECG and interpreted as documented below: A-fib with RVR with a ventricular rate of [address] elevation or depression. QTc normal at 401 Medical Decision Narrative: In summary patient is a 79-year-old female who presents the emergency department for evaluation of A-fib with RVR. Patient is blood pressure stable upon arrival, afebrile. Irregular heart rate on exam. Differential diagnosis includes A-fib, A-fib with RVR, electrolyte abnormality, thyroid abnormality. Initial workup will be conducted with hematologic labs, EKG. Initial inventions include IV metoprolol. I did discuss this patient with Josse Garner physician assistant women's tennis coach with cardiology. They advised offering the patient discharge home and follow-up next week versus admission and likely pacemaker placement on Tuesday. I discussed with the patient the options, advising that I was concerned about her persistent tachycardia despite beta blockers. She is agreeable to admission. Cardiology also advised that patient had reported shortness of breath at home. She reports when she was up working she was experiencing some dyspnea. Initial workup reviewed by me slightly elevated troponin. Upon repeat evaluation no improvement of tachycardia with metoprolol. She was given a bolus of Cardizem and had improvement of tachycardia, however did experience some mild hypotension. This resolved and patient was asymptomatic. Held off on Cardizem drip until blood pressure showed further improvement. Given this patient was admitted. I was consulted by the OH, and we discussed the complexity of the problems being addressed. I approve the treatment and management plan for this patient's care in the emergency department, thus performing a substantive portion of the medical decision making. Richmond Zaidi MD Critical Care <LEIGH Holland - Last Filed: 02/01/25 15:00> Critical Care Time Critical Care Time: Yes Attestation: On 02/01/25, the high probability of a clinically significant, sudden or life threatening deterioration of the following system(s) required my full and direct attention, intervention and personal management. The time I documented below is in addition to time spent performing reported procedures but includes the following listed in this critical care notation. Total Time Total Critical Care Time: 30
[2025-02-01] MEDS: METOPROLOL TARTRATE 5MG/5ML VIAL 5 MG IV (12:37)
[2025-02-01 12:39] LABS: Hematocrit 36.3 % (37.0-47.0); Hemoglobin 12.0 g/dL (12.2-16.2); Immature Granulocytes % 0.3 %; Mean Corpuscular HGB Conc 33.1 g/dL (31.8-35.4); Mean Corpuscular Hemoglobin 30.1 pg (27.0-31.2); Mean Corpuscular Volume 91.0 fl (81-99); Nucleated Red Blood Cells % 0 %; Platelet Count 420 K/mm3 (142-424); Red Blood Count 3.99 M/mm3 (4.20-5.40); Red Cell Distribution Width-SD 44.4 fL; White Blood Count 10.4 K/mm3 (4.8-10.8)
[2025-02-01 13:27] LABS: Triiodothryronine (T3) Uptake 36 % (23.5-40.5)
[2025-02-01 13:28] LABS: Free Thyroxine Index 4.1 ug/dL (5.93-13.13); T4 (Thyroxine) 11.3 ug/dl (5.53-11.0)
[2025-02-01 13:41] LABS: Thyroid Stimulating Hormone 1.73 uIU/mL (0.465-4.68)
--- NOTE | 2025-02-01 13:46 | EXP.HP ---
History of Present Illness *Admission Date: 02/01/25 *Reason for visit:: heart racing, dyspnea *History of present illness: 79-year-old female who reports to the ER after being called by her monitoring company for her event monitor. She was at home moving furniture when she got a phone call that stated she needed to go to the hospital for evaluation. Was found to be in A-fib with RVR. Event monitor has been in place due to intermittent A-fib and adjustment of medications where she has fluctuated between A-fib with RVR and bradycardia. Was recently on bisoprolol when her heart rate was in the 30s to 40s. Stated she felt pretty good when her heart rate was at low. Transitioned to metoprolol that she is currently on. Heart rate is still fast and irregular. Has had shortness of breath for about 2 weeks with a cough. Was diagnosed with bronchitis a week ago but shortness of breath is not any better. Concerned the symptoms may be related to her A-fib. Denies chest pain, nausea, vomiting, confusion, headache. Feels like her heart is fluttering somewhat. Is at her baseline level of function, daughter at bedside helps supplement history. Patient has history of hypothyroid, CVA, hypertension. Workup in the ER with relatively unremarkable labs. EKG showing left anterior fascicular block and A-fib with RVR. Initial troponin detectable at 0.1. TSH controlled at 1.7. Administered 5 of metoprolol with no improvement in heart rate. Administered IV diltiazem 10 mg once and cardiology was consulted. They recommended considering diltiazem drip. Medicine consulted for admission. Patient admitted to stepdown level of care due to initiation of diltiazem drip. On my evaluation however patient is asymptomatic. Denies chest pain. Alert and oriented x 4. Overall feels well on room air. Discussed initiating drip versus trialing oral diltiazem given her clinical stability. [facility] Disclaimer: The information contained in this section may have been updated after the patient was seen, as this information can be updated by other users. 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 Vitamin B12 deficiency Vitamin D deficiency Insect bite Hypokalemia Tricuspid regurgitation Left knee pain Neuritis Ventricular tachycardia PSVT (paroxysmal supraventricular tachycardia) PVC (premature ventricular contraction) PAC (premature atrial contraction) Anal stenosis Hemorrhoids Acquired anal stenosis Crohn's disease Acquired hypothyroidism CVA (cerebral vascular accident) Wrist fracture SOB (shortness of breath) Bradycardia HLD (hyperlipidemia) HTN (hypertension) CAD (coronary artery disease) Surgical History History of loop recorder Hx of cataract surgery History of appendectomy History of carpal tunnel surgery History of hysterectomy History of cholecystectomy History of ankle surgery Family History Coronary artery disease Social History Smoking Status: Never smoker alcohol intake: current substance use type: denies use current occupational status: unemployed and retired Travel in the last 8 weeks?: Inside the [place] caffeine: Yes Have you lived/traveled outside US in past 30 days?: No Contact w/someone who lives/traveled outside US past 30 days?: No Exposure to someone with infectious disease in past 14 days?: No Do you have a fever (greater than 100.4 F or 38 C)?: No Have you tested positive for COVID-19?: No Exposed to someone with COVID-19 in past 14 days?: No Do you have a sore throat?: No Do you have a cough?: No Do you have any weakness?: No Do you have any diarrhea?: No Are you experiencing any unusual bleeding?: No Do you have any muscle aches/pain?: No Do you have any abdominal pain?: No Are you experiencing loss of taste or smell?: No Other Medical History Have you received the Flu Vaccine for this season: No Have you received the Pneumonia Vaccine: Yes Review of Systems Review of Systems Review of systems (narrative): 14 point review of systems performed, pertinent positives and negatives as per HPI Meds Home Medications and Allergies Home Medications ?Medication ?Instructions ?Recorded ?Confirmed ?Type cholecalciferol (vitamin D3) 125 125 mcg PO DAILY #30 tabs 11/07/24 02/01/25 Rx mcg (5,000 unit) tablet cyanocobalamin (vitamin B-12) 1,000 mcg PO DAILY #30 tabs 11/07/24 02/01/25 Rx 1,000 mcg tablet cetirizine 10 mg tablet 10 mg PO DAILY #30 tabs 11/27/24 02/01/25 Rx metoprolol succinate 25 mg 25 mg PO DAILY #30 tabs 01/31/25 02/01/25 Rx tablet,extended release 24 hr (Toprol XL) albuterol sulfate 90 mcg/actuation 2 puff inhalation Q4HP PRN 02/01/25 02/01/25 History aerosol inhaler shortness of breath or wheezing aspirin 325 mg tablet 325 mg PO DAILY 02/01/25 02/01/25 History hydrochlorothiazide 25 mg tablet 25 mg PO DAILY 02/01/25 02/01/25 History levothyroxine 75 mcg tablet 75 mcg PO DAILY 02/01/25 02/01/25 History losartan 50 mg tablet 50 mg PO DAILY 02/01/25 02/01/25 History potassium chloride 10 mEq 10 meq PO BID 02/01/25 02/01/25 History capsule,extended release rivaroxaban 20 mg tablet (Xarelto) 20 mg PO QPMWITHMEAL 02/01/25 02/01/25 History New Prescriptions to Start Prescriptions: Allergies Allergy/AdvReac Type Severity Reaction Status Date / Time cinnamon Allergy Intermediate facial Verified 02/01/25 15:39 swelling coconut Allergy Intermediate Facial Verified 02/01/25 15:39 swelling juan antonio Allergy Intermediate Facial Verified 02/01/25 15:39 swelling oregano Allergy Intermediate Facial Verified 02/01/25 15:39 swelling pepper (genus Capsicum) Allergy Intermediate facial Verified 02/01/25 15:39 swelling sesame seed Allergy Intermediate facial Verified 02/01/25 15:39 swelling Exam Data for Last 24 hours Vital signs and Labs for Last 24 Hours: Temp Pulse Resp BP Pulse Ox O2 Del Method 98.4 F 150 H 25 H 135/94 H 96 Room Air 02/01/25 12:22 02/01/25 12:22 02/01/25 12:22 02/01/25 12:22 02/01/25 12:22 02/01/25 12:22 Laboratory Results - last 24 hr 02/01/25 12:23: WBC 10.4, RBC 3.99 L, Hgb 12.0 L, Hct 36.3 L, MCV 91.0, MCH 30.1, MCHC 33.1, RDW 13.3, Plt Count 420, MPV 10.4, Neut % (Auto) 68.1, Lymph % (Auto) 22.4, [place] % (Auto) 7.9, Eos % (Auto) 1.0, Baso % (Auto) 0.3, Neut # (Auto) 7.1, Lymph # (Auto) 2.3, [place] # (Auto) 0.8, Eos # (Auto) 0.1, Baso # (Auto) 0.0, Free T4 Index 4.1 L, Thyroxine (T4) 11.3 H, T3 Uptake 36 I & O for Last 24 hours: Intake & Output 01/29/25 01/30/25 01/31/25 02/01/25 23:59 23:59 23:59 23:59 Weight 69.4 kg Constitutional Constitutional: no acute distress, obese and cooperative *Routine HEENT Exam Head: Present normocephalic Eye: Present EOMI and PERRL ENT: Present mucous membranes moist *Routine Neck Exam Neck: Present supple; Absent lymphadenopathy *Routine Respiratory Exam Respiratory: Present CTA bilaterally; Absent respiratory distress, rhonchi, stridor or wheezes *Routine Cardiovascular Exam Cardiovascular: Present tachycardia and irregularly irregular *Routine Abdominal Exam Abdominal: Present soft and normoactive bowel sounds; Absent tenderness *Routine Rectal Exam Rectal:: deferred *Routine Genitalia Exam Genitalia:: deferred *Routine Extremities Exam Extremities: Absent cyanosis, clubbing or edema *Routine Skin Exam Skin: Present warm; Absent rash *Routine Neurological Exam Neurological: Present alert, oriented X3 and moving all extremities; Absent altered mental status Assessment and Plan *Assessment and plan (1) Atrial fibrillation with RVR: Status: Acute Category: Medical Code(s): I48.91 - Unspecified atrial fibrillation (2) HTN (hypertension): Status: Chronic Qualifiers: Hypertension type: essential hypertension Qualified Code(s): I10 - Essential (primary) hypertension Category: Medical Code(s): I10 - Essential (primary) hypertension (3) HLD (hyperlipidemia): Status: Chronic Qualifiers: Hyperlipidemia type: mixed hyperlipidemia Qualified Code(s): E78.2 - Mixed hyperlipidemia Category: Medical Code(s): E78.5 - Hyperlipidemia, unspecified (4) Crohn's disease: Status: Acute Category: Medical Code(s): K50.90 - Crohn's disease, unspecified, without complications (5) Acquired hypothyroidism: Status: Acute Category: Medical Code(s): E03.9 - Hypothyroidism, unspecified (6) CVA (cerebral vascular accident): Problem Comment: Per history, no focal acute symptoms Status: Resolved Category: Medical Code(s): I63.9 - Cerebral infarction, unspecified Plan 79-year-old female whose event monitor picked up A-fib with RVR. Presented to the ER for evaluation at the request of her cardiology provider/monitoring service. Discussed case with ER provider, request admission for further management of A-fib with RVR. I decided to admit for further treatment. Will trial oral diltiazem, if no improvement in the next 1 to 2 hours, will initiate diltiazem drip. Necessitating inpatient care. 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 Initiated on oral diltiazem 60 mg p.o. every 8 hours. If no improvement in her heart rate over the next 2 hours after admission, will initiate diltiazem drip. Goal heart rate less than 110. - Cardiology consulted, will evaluate for possible pacemaker on Tuesday. Will discuss case daily over the weekend. - Initiate Lovenox 1 mg/kg twice daily for in the setting of A-fib - Kidney function normal with BUN 12, creatinine 0.9. Potassium 3.4, will replace electrolytes per protocol. Magnesium 1.8 - Repeat CBC, CMP, magnesium ordered for the morning - Hold home losartan pending response to diltiazem. Resume hydrochlorothiazide 25 mg daily - Resume home metoprolol succinate 25 mg daily - Though Xarelto is on her home med rec, she had not started this medication yet. Will hold pending decision on pacemaker. Reevaluate need for anticoagulation after definitive treatment - White count 10.4. Hemoglobin 12. - Initial troponin 0.1. Serial troponins pending. Suspect secondary to tachyarrhythmia. - EKG per my review shows heart rate in the 140s. In A-fib with RVR. Also has left anterior fascicular block - Monitor on continuous telemetry Hypothyroid: TSH controlled at 1.7. Resume levothyroxine 75 mcg daily Obesity complicates all aspects of her care Full code Cardiac diet Therapeutic Sav
[2025-02-01 13:54] LABS: Troponin I 0.10 ng/ml (0.00-0.034)
--- NOTE | 2025-02-01 13:55 | HMH.PHAINT1 ---
Pharmacy Intervention Comments: MEDICATION RECONCILIATION COMPLETED ON PATIENT USING EXTERNAL FILL HISTORY FROM PHARMACY AND LIST FROM CARDIOLOGY/PCP OFFICES. -JAMAL HOLLINSD
[2025-02-01 14:04] LABS: Albumin Level 4.0 g/dl (3.5-5.0); Chloride 104 mmol/L (98-107); Potassium 3.4 mmoL/L (3.5-5.1); Sodium 134 mmol/L (136-145)
[2025-02-01 14:06] LABS: Alanine Aminotransferase 23 U/L (12-78); Aspartate Amino Transferase 38 U/L (14-36); Blood Urea Nitrogen 12 mg/dl (7-17); Creatinine Clearance Estimated 49 mL/min (50-200); Creatinine,Serum 0.90 mg/dl (0.52-1.04); Estimated Glomerular Filt Rate 60 ml/min (>60); GFR (African American) 73 ML/MIN (>60)
[2025-02-01 14:07] LABS: Albumin/Globulin Ratio 1.4 (1.1-1.8); Alkaline Phosphatase 106 U/L (38-126); Anion Gap 7.4 mEq/L (5-15); Bilirubin,Total 0.6 mg/dl (0.2-1.3); Calcium 9.5 mg/dl (8.4-10.2); Carbon Dioxide 26 mmol/L (22.0-30.0); Globulin 2.9 g/dL (1.3-3.2); Glucose 100 mg/dl (74-100); Magnesium 1.8 mg/dl (1.6-2.3); Total Protein,Serum 6.9 g/dl (6.3-8.2)
--- NOTE | 2025-02-01 14:48 | PC.NURSE ---
called report to [facility] and answered all questions
--- NOTE | 2025-02-01 14:53 | PC.NURSE ---
Patient arrived to ICU. Patient brought up by wheelchair by ED staff. Continuation of care plan.
--- NOTE | 2025-02-01 15:00 | PC.NURSE ---
at bedside. Dr. Rangel explained plan of care to patient at this time. Per , Patients portable at home heart monitor can be removed by respiratory therapy. Per Dr. Rangel, Administer patients PO Diltiazem, if after an hour patients heart rate has not gotten to 110 or less then we will reevaluate. Continuation of care plan.
--- NOTE | 2025-02-01 15:10 | PC.NURSE ---
Patient states Xarelto listed on home medications was prescribed yesterday and she has not started medication. Dr. Rangel aware. Continuation of care plan.
--- NOTE | 2025-02-01 15:27 | PC.NURSE ---
Patients at home, portable heart monitor removed by respiratory therapist at this time. Continuation of care plan.
[2025-02-01] MEDS: POTASSIUM CHLORIDE 20MEQ TAB 40 MEQ PO ×2 (15:28→19:18)
--- NOTE | 2025-02-01 16:38 | PC.NURSE ---
Primary RN notified of patients heart rate ranges from 120's to 140's at this time. Per Dr. Rangel, if at 1730 patient is still in 130's-140's then start Diltiazem drip as ordered per AUG at that time. Continuation of care plan.
--- NOTE | 2025-02-01 16:39 | PC.NURSE ---
Primary RN notified of patients heart rate ranges from 120's to 140's at this time. Per Dr. Rangel, if at 1730 patient is still in 130's-140's then start drip at that time. Continuation of care plan.
--- NOTE | 2025-02-01 16:42 | PC.NURSE ---
Primary RN notified of patients heart rate ranges from 120's to 140's at this time. Patient is not symptomatic at this time. Per Dr. Rangel, if at 1730 patient is still in 130's-140's then start Diltiazem drip as ordered per BRANDEN at that time. Continuation of care plan.
[2025-02-01 17:42] LABS: Troponin I 0.10 ng/ml (0.00-0.034)
--- NOTE | 2025-02-01 17:42 | PC.NURSE ---
1739 IV Dilt Drip started as ordered per AUG. notified. Continuation of care plan.
--- NOTE | 2025-02-01 18:53 | PC.NURSE ---
Per , after patient gets 2200 PO dose of scheduled Diltiazem wait an hour and if patients heart rate is 90's-110's discontinue IV Dilt drip at that time. Continuation of care plan.
--- NOTE | 2025-02-01 19:30 | PC.NURSE ---
Information from previous note passed on to BRITANY Lopez. Continuation of care plan.
[2025-02-01 19:54] LABS: Troponin I 0.10 ng/ml (0.00-0.034)
--- NOTE | 2025-02-01 21:59 | XR_ITS ---
PROCEDURE INFORMATION: Exam: XR Chest Exam date and time: 02/02/2025 12:35 AM Age: 79 years old Clinical indication: Pain; Shortness of breath; Left-sided; Additional info: Chest pain short of breath TECHNIQUE: Imaging protocol: Radiologic exam of the chest. Views: 1 view. Total images: 1 COMPARISON: CR XR CHEST PORTABLE 12/30/2023 1:06 PM FINDINGS: Tubes, catheters and devices: Cardiac loop recorder. EKG leads are present. Lungs: Unremarkable. No consolidation. No pulmonary vascular congestion or edema. Pleural spaces: Unremarkable. No pleural effusion. No pneumothorax. Heart/Mediastinum: Calcified hilar lymph nodes. No cardiomegaly. No mediastinal widening or hilar enlargement. Diaphragm: Chronic mild eventration right hemidiaphragm. Bones/joints: Osteopenia. Stable chest wall structures. Other findings: Lordotic position. IMPRESSION: No radiographically acute cardiopulmonary process.
[2025-02-01 22:54] LABS: Troponin I 0.11 ng/ml (0.00-0.034)
--- NOTE | 2025-02-01 23:14 | HMH.EDGENADL ---
Discharge Plan Disposition Patient Disposition: Admitted Clinical Impressions Clinical Impression: Afib Discharge ED Provider: Richmond Zaidi Adult HPI General Chief complaint: Arrhythmia/Palpitations Stated complaint: Heart monitor readings Time Seen by Provider: 02/01/25 12:13 Mode of Arrival: Ambulatory Source of Information: Patient Description of Symptoms (Recalled from ER Triage Doc. by RN): pt is here bc cardiology office called her and told her to go to ER according to monitor, pt has afib with rvr per triage ekg, pt is alox4 and stable History of Present Illness HPI narrative: Patient presents with A-fib with RVR. 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 She denies any palpitations, chest pain, shortness of breath. She has been started on propranolol and switched to metoprolol today. She was prescribed Xarelto however has not picked that up. complaint: Tachycardia Onset (ago): day(s) Severity: mild Quality: other (denies pain ) Relieving factors: none Exacerbating factors: none Associated symptoms: denies other symptoms Related Data Home Medications ?Medication ?Instructions ?Recorded ?Confirmed albuterol sulfate 90 mcg/actuation 2 puff inhalation Q4HP PRN 02/01/25 02/01/25 aerosol inhaler shortness of breath or wheezing aspirin 325 mg tablet 325 mg PO DAILY 02/01/25 02/01/25 hydrochlorothiazide 25 mg tablet 25 mg PO DAILY 02/01/25 02/01/25 levothyroxine 75 mcg tablet 75 mcg PO DAILY 02/01/25 02/01/25 losartan 50 mg tablet 50 mg PO DAILY 02/01/25 02/01/25 potassium chloride 10 mEq 10 meq PO BID 02/01/25 02/01/25 capsule,extended release rivaroxaban 20 mg tablet (Xarelto) 20 mg PO QPMWITHMEAL 02/01/25 02/01/25 Previous Rx's ?Medication ?Instructions ?Recorded cholecalciferol (vitamin D3) 125 125 mcg PO DAILY #30 tabs 11/07/24 mcg (5,000 unit) tablet cyanocobalamin (vitamin B-12) 1,000 mcg PO DAILY #30 tabs 11/07/24 1,000 mcg tablet cetirizine 10 mg tablet 10 mg PO DAILY #30 tabs 11/27/24 metoprolol succinate 25 mg 25 mg PO DAILY #30 tabs 01/31/25 tablet,extended release 24 hr (Toprol XL) Allergies Allergy/AdvReac Type Severity Reaction Status Date / Time cinnamon Allergy Intermediate facial Verified 02/01/25 15:39 swelling coconut Allergy Intermediate Facial Verified 02/01/25 15:39 swelling juan antonio Allergy Intermediate Facial Verified 02/01/25 15:39 swelling oregano Allergy Intermediate Facial Verified 02/01/25 15:39 swelling pepper (genus Capsicum) Allergy Intermediate facial Verified 02/01/25 15:39 swelling sesame seed Allergy Intermediate facial Verified 02/01/25 15:39 swelling PFSH PFSH Disclaimer: The information contained in this section may have been updated after the patient was seen, as this information can be updated by other users. 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 Vitamin B12 deficiency Vitamin D deficiency Insect bite Hypokalemia Tricuspid regurgitation Left knee pain Neuritis Ventricular tachycardia PSVT (paroxysmal supraventricular tachycardia) PVC (premature ventricular contraction) PAC (premature atrial contraction) Anal stenosis Hemorrhoids Acquired anal stenosis Crohn's disease Acquired hypothyroidism CVA (cerebral vascular accident) Wrist fracture SOB (shortness of breath) Bradycardia HLD (hyperlipidemia) HTN (hypertension) CAD (coronary artery disease) Surgical History History of loop recorder Hx of cataract surgery History of appendectomy History of carpal tunnel surgery History of hysterectomy History of cholecystectomy History of ankle surgery Family History Coronary artery disease Social History Smoking Status: Never smoker alcohol intake: current substance use type: denies use current occupational status: unemployed and retired Travel in the last 8 weeks?: Inside the [place] caffeine: Yes Have you lived/traveled outside US in past 30 days?: No Contact w/someone who lives/traveled outside [place] past 30 days?: No Exposure to someone with infectious disease in past 14 days?: No Do you have a fever (greater than 100.4 F or 38 C)?: No Have you tested positive for COVID-19?: No Exposed to someone with COVID-19 in past 14 days?: No Do you have a sore throat?: No Do you have a cough?: No Do you have any weakness?: No Do you have any diarrhea?: No Are you experiencing any unusual bleeding?: No Do you have any muscle aches/pain?: No Do you have any abdominal pain?: No Are you experiencing loss of taste or smell?: No Other Medical History Have you received the Flu Vaccine for this season: Yes Have you received the Pneumonia Vaccine: Yes ROS Obtained: Yes Systems reviewed as appropriate & no additional complaints except as documented Physical Exam General General appearance: alert and in no apparent distress Head Head exam: atraumatic and normocephalic Eye Eye exam: Present normal appearance and EOMI Chest Chest inspection: Present symmetric chest wall rise Respiratory Respiratory exam: Present normal lung sounds bilaterally; Absent wheezes or stridor Cardiovascular Cardiovascular exam: Present regular rate and normal rhythm; Absent systolic murmur Extremities Exam Extremities exam: Present full ROM Neurological Exam Neurological exam: Present alert and oriented X3 Psychiatric Psychiatric exam: Present normal affect and normal mood Skin Skin exam: Present warm, dry and intact Medical Decision Making Medical Records Screening: Per USPSTF and CDC recommendations, given the prevalence of disease in our region, it is our hospital?s policy to screen for HIV and viral Hepatitis for all patients aged 18 and over and those with ongoing risk factors. Vital Signs: 02/01/25 12:22 02/01/25 12:31 02/01/25 13:00 Temperature 98.4 F Temperature Source Oral Pulse Rate 129 H 131 H Pulse Rate [Left Radial] 150 H Respiratory Rate 25 H 24 11 L Blood Pressure 114/69 107/76 L Blood Pressure [Right Arm] 135/94 H Blood Pressure Mean [Right Arm] 107 02 Sat by Pulse Oximetry 96 93 L 93 L Oxygen Delivery Method Room Air 02/01/25 13:45 02/01/25 14:37 02/01/25 14:49 Temperature 98.2 F Temperature Source Pulse Rate 128 H 134 H Pulse Rate [Left Radial] 142 H Respiratory Rate 17 15 Blood Pressure 107/62 L 108/86 L Blood Pressure [Right Arm] Blood Pressure Mean [Right Arm] 02 Sat by Pulse Oximetry 91 L 95 Oxygen Delivery Method Room Air Room Air Lab Data Lab Results 02/01/25 12:23: WBC 10.4, RBC 3.99 L, Hgb 12.0 L, Hct 36.3 L, MCV 91.0, MCH 30.1, MCHC 33.1, RDW 13.3, Plt Count 420, MPV 10.4, Neut % (Auto) 68.1, Lymph % (Auto) 22.4, [place] % (Auto) 7.9, Eos % (Auto) 1.0, Baso % (Auto) 0.3, Neut # (Auto) 7.1, Lymph # (Auto) 2.3, [place] # (Auto) 0.8, Eos # (Auto) 0.1, Baso # (Auto) 0.0, Sodium 134 L, Potassium 3.4 L, Chloride 104, Carbon Dioxide 26, Anion Gap 7.4, BUN 12, Creatinine 0.90, Estimated Creat Clear 49, Estimated GFR 60, Est GFR ( Amer) 73, Glucose 100, Calcium 9.5, Magnesium 1.8, Total Bilirubin 0.6, AST 38 H, ALT 23, Alkaline Phosphatase 106, Troponin I 0.10 H, Total Protein 6.9, Albumin 4.0, Globulin 2.9, Albumin/Globulin Ratio 1.4, TSH 1.73, Free T4 Index 4.1 L, Thyroxine (T4) 11.3 H, T3 Uptake 36 02/01/25 12:23 02/01/25 12:23 Orders (Tests/Meds): ED MEDICATIONS Generic Name Dose Route Start Last Admin Trade Name Freq PRN Reason Stop Dose Admin Acetaminophen 650 mg 02/01/25 13:42 Acetaminophen 325mg Tab PO 03/03/25 13:41 Q4HP PRN Fever or Mild Pain (1-3) Diltiazem HCl 60 mg 02/01/25 14:00 02/01/25 21:59 Diltiazem 30mg Tablet PO 03/03/25 13:59 60 mg Q8H ROB Administration Enoxaparin Sodium 70 mg 02/01/25 14:00 02/01/25 15:29 Enoxaparin 80mg/0.8ml Syringe SUBCUT 03/03/25 13:59 70 mg Q12H ROB Administration Hydrochlorothiazide 25 mg 02/02/25 09:00 Hydrochlorothiazide 25mg Tablet PO 03/04/25 08:59 DAILY ROB Diltiazem HCl 100 mg/ Sodium 100 mls @ 5 mls/hr 02/01/25 13:37 02/01/25 19:22 Chloride IV 03/03/25 13:36 5 mg/hr .Q20H ROB 5 mls/hr Protocol Titration 5 MG/HR Levothyroxine Sodium 75 mcg 02/02/25 07:00 Levothyroxine 75mcg (0.075mg) Tab PO 03/04/25 06:59 DAILYDM ROB Metoprolol Succinate 25 mg 02/02/25 09:00 Metoprolol Succinate Xl 25mg Tablet PO 03/04/25 08:59 DAILY ROB Sodium Chloride 10 ml 02/01/25 12:28 Sodium Chloride 0.9% 10ml Flush Syringe IV 03/03/25 12:27 NEEDED PRN Maintain IV Site Discontinued Medications Generic Name Dose Route Start Last Admin Trade Name Freq PRN Reason Stop Dose Admin Diltiazem HCl 10 mg 02/01/25 13:35 02/01/25 13:51 Diltiazem 25mg/5ml Vial IV 02/01/25 13:36 10 mg ONCE ONE Administration Metoprolol Tartrate 5 mg 02/01/25 12:28 02/01/25 12:37 Metoprolol Tartrate 5mg/5ml Vial IV 02/01/25 12:29 5 mg ONCE ONE Administration Potassium Chloride 40 meq 02/01/25 15:15 02/01/25 19:18 Potassium Chloride 20meq Tab PO 02/01/25 19:16 40 meq Q4H ROB Administration ORDERS Category Date Time Status Cardiology Consult [Consult to Cardiology] [CONS] Cons 02/01/25 13:45 Active Routine CBC w/Auto Diff [Complete Blood Count Auto Diff] Stat Lab 02/01/25 12:23 Completed CMP [Comprehensive Metabolic Panel] Stat Lab 02/01/25 12:23 Completed Complete Blood Count Auto Diff AMLAB Lab 02/02/25 06:00 Ordered Comprehensive Metabolic Panel AMLAB Lab 02/02/25 06:00 Ordered Magnesium AMLAB Lab 02/02/25 06:00 Ordered Magnesium Stat Lab 02/01/25 12:23 Completed Thyroid Panel Stat Lab 02/01/25 12:23 Completed Troponin I Q3H Lab 02/01/25 16:35 Completed Troponin I Q3H Lab 02/01/25 19:10 Completed Troponin I Stat Lab 02/01/25 12:23 Completed
[2025-02-02] VITALS (29 sets, daily range): BP systolic 90–120; BP diastolic 51–77; PULSE 65–141; RESP 14–24; TEMP 36.6–36.9; O2SAT 90–97; BMI 31.6
[2025-02-02 06:45] LABS: Hematocrit 36.7 % (37.0-47.0); Hemoglobin 11.8 g/dL (12.2-16.2); Immature Granulocytes % 0.2 %; Mean Corpuscular HGB Conc 32.2 g/dL (31.8-35.4); Mean Corpuscular Hemoglobin 29.9 pg (27.0-31.2); Mean Corpuscular Volume 93.1 fl (81-99); Nucleated Red Blood Cells % 0 %; Platelet Count 365 K/mm3 (142-424); Red Blood Count 3.94 M/mm3 (4.20-5.40); Red Cell Distribution Width-SD 47.3 fL; White Blood Count 6.0 K/mm3 (4.8-10.8)
[2025-02-02] MEDS: LEVOTHYROXINE 75MCG (0.075MG) TAB 75 MCG PO (06:48)
--- NOTE | 2025-02-02 07:05 | EXP.ACUTE.PN ---
Subjective *Date: 02/02/25 *Time: 11:21 Interval history: Feeling better this morning. Rate bouncing between 70 and 90 bpm. Still in A-fib but rate controlled. Troponin stable and flat at 0.1. Denies chest pain, shortness of breath, nausea or vomiting. Was put on 2 L while sleeping more for comfort. Back to room air by morning rounds. Medical Exam Vital signs and Labs for Last 24 Hours: Vital Signs Temp Pulse Pulse Resp BP BP Pulse Ox 02/02/25 06:00 117 H 17 112/52 L 95 02/02/25 05:00 02/02/25 04:00 110 H 02/02/25 04:00 98.2 F 127 H 14 100/73 L 95 02/02/25 03:00 02/02/25 02:00 111 H 17 90/65 L 90 L 02/02/25 02:00 90 90 L 02/02/25 01:00 02/02/25 00:00 98.4 F 95 H 24 90/62 L 92 L 02/02/25 00:00 100 H 02/01/25 23:00 118 H 110/76 02/01/25 23:00 02/01/25 22:00 127 H 19 105/76 L 91 L 02/01/25 21:00 02/01/25 20:00 90 02/01/25 20:00 97 H 93 L 02/01/25 20:00 98.4 F 87 16 112/88 94 L 02/01/25 19:00 89 14 102/56 L 93 L 02/01/25 19:00 02/01/25 18:45 117 H 30 H 90 L 02/01/25 18:30 88 17 94/53 L 92 L 02/01/25 18:15 92 L 02/01/25 18:07 118 H 12 96/63 L 94 L 02/01/25 18:01 78 21 90/55 L 96 02/01/25 18:00 80 17 95 02/01/25 17:45 109 H 19 97 02/01/25 17:00 129 H 16 123/82 95 02/01/25 16:43 02/01/25 16:03 134 H 16 118/78 94 L 02/01/25 16:00 147 H 02/01/25 15:45 02/01/25 15:41 145 H 02/01/25 15:13 98.4 F 124 H 16 144/84 H 92 L 02/01/25 14:49 98.2 F 134 H 15 108/86 L 02/01/25 14:37 142 H 95 02/01/25 13:45 128 H 17 107/62 L 91 L 02/01/25 13:00 131 H 11 L 107/76 L 93 L 02/01/25 12:31 129 H 24 114/69 93 L 02/01/25 12:22 98.4 F 150 H 25 H 135/94 H 96 O2 Del Method O2 Flow Rate 02/02/25 06:00 Nasal Cannula 2 02/02/25 05:00 Nasal Cannula 2 02/02/25 04:00 02/02/25 04:00 Nasal Cannula 2 02/02/25 03:00 Nasal Cannula 2 02/02/25 02:00 Nasal Cannula 2 02/02/25 02:00 Nasal Cannula 2 02/02/25 01:00 Nasal Cannula 2 02/02/25 00:00 Room Air 02/02/25 00:00 02/01/25 23:00 02/01/25 23:00 Room Air 02/01/25 22:00 Room Air 02/01/25 21:00 Room Air 02/01/25 20:00 02/01/25 20:00 Room Air 02/01/25 20:00 Room Air 02/01/25 19:00 Room Air 02/01/25 19:00 Room Air 02/01/25 18:45 Room Air 02/01/25 18:30 Room Air 02/01/25 18:15 Room Air 02/01/25 18:07 Room Air 02/01/25 18:01 Room Air 02/01/25 18:00 Room Air 02/01/25 17:45 Room Air 02/01/25 17:00 Room Air 02/01/25 16:43 Room Air 02/01/25 16:03 Room Air 02/01/25 16:00 02/01/25 15:45 Room Air 02/01/25 15:41 02/01/25 15:13 Room Air 02/01/25 14:49 Room Air 02/01/25 14:37 Room Air 02/01/25 13:45 02/01/25 13:00 02/01/25 12:31 02/01/25 12:22 Room Air Intake and Output 02/01/25 02/01/25 02/02/25 15:59 23:59 07:59 Intake Total 8.8 / 8.8 53.167 / 53.167 Output Total 0 / 0 0 / 0 Balance 8.8 / 8.8 53.167 / 53.167 Intake: Intake, Total IV Amount 8.8 / 8.8 53.167 / 53.167 Output: Output, Urine Amount 0 / 0 0 / 0 Other: Number of Unmeasured Voids 2 1 Weight 70.2 kg 71.2 kg Patient Weight 02/02/25 23:59 Weight 71.2 kg Laboratory Results - last 24 hr 02/01/25 12:23: WBC 10.4, RBC 3.99 L, Hgb 12.0 L, Hct 36.3 L, MCV 91.0, MCH 30.1, MCHC 33.1, RDW 13.3, Plt Count 420, MPV 10.4, Neut % (Auto) 68.1, Lymph % (Auto) 22.4, [place] % (Auto) 7.9, Eos % (Auto) 1.0, Baso % (Auto) 0.3, Neut # (Auto) 7.1, Lymph # (Auto) 2.3, [place] # (Auto) 0.8, Eos # (Auto) 0.1, Baso # (Auto) 0.0, Sodium 134 L, Potassium 3.4 L, Chloride 104, Carbon Dioxide 26, Anion Gap 7.4, BUN 12, Creatinine 0.90, Estimated Creat Clear 49, Estimated GFR 60, Est GFR ( Amer) 73, Glucose 100, Calcium 9.5, Magnesium 1.8, Total Bilirubin 0.6, AST 38 H, ALT 23, Alkaline Phosphatase 106, Troponin I 0.10 H, Total Protein 6.9, Albumin 4.0, Globulin 2.9, Albumin/Globulin Ratio 1.4, TSH 1.73, Free T4 Index 4.1 L, Thyroxine (T4) 11.3 H, T3 Uptake 36 02/01/25 16:35: Troponin I 0.10 H 02/01/25 19:10: Troponin I 0.10 H 02/01/25 22:10: Troponin I 0.11 H 02/02/25 06:20: WBC 6.0 D, RBC 3.94 L, Hgb 11.8 L, Hct 36.7 L, MCV 93.1, MCH 29.9, MCHC 32.2, RDW 13.8, Plt Count 365, MPV 10.5 H, Neut % (Auto) 52.3, Lymph % (Auto) 35.5, [place] % (Auto) 9.5 H, Eos % (Auto) 2.0, Baso % (Auto) 0.5, Neut # (Auto) 3.1, Lymph # (Auto) 2.1, [place] # (Auto) 0.6, Eos # (Auto) 0.1, Baso # (Auto) 0.0 I & O for Labs for Last 24 Hours: Intake & Output 01/30/25 01/31/25 02/01/25 02/02/25 23:59 23:59 23:59 23:59 Intake Total 8.8 / 8.8 53.167 / 53.167 Output Total 0 / 0 0 / 0 Balance 8.8 / 8.8 53.167 / 53.167 Weight 70.2 kg 71.2 kg Constitutional: Present no acute distress, obese and cooperative Head: Present atraumatic and normocephalic ENT: Present normal exam Respiratory: Present normal respiratory effort; Absent respiratory distress, stridor, wheezes or crackles Cardiac: Present Regular Rate and Irregularly Regular GI: Present soft and normal bowel sounds; Absent distention or tenderness Extremities: Present normal inspection and full ROM; Absent edema Skin: Present intact; Absent erythema Neuro: Present Grossly Intact, alert, awake, oriented x 3 and moves all extremities Assessment and Plan *Assessment and plan (1) Atrial fibrillation with RVR: Status: Acute Category: Medical Code(s): I48.91 - Unspecified atrial fibrillation (2) HTN (hypertension): Status: Chronic Qualifiers: Hypertension type: essential hypertension Qualified Code(s): I10 - Essential (primary) hypertension Category: Medical Code(s): I10 - Essential (primary) hypertension (3) HLD (hyperlipidemia): Status: Chronic Qualifiers: Hyperlipidemia type: mixed hyperlipidemia Qualified Code(s): E78.2 - Mixed hyperlipidemia Category: Medical Code(s): E78.5 - Hyperlipidemia, unspecified (4) Crohn's disease: Status: Acute Category: Medical Code(s): K50.90 - Crohn's disease, unspecified, without complications (5) Acquired hypothyroidism: Status: Acute Category: Medical Code(s): E03.9 - Hypothyroidism, unspecified (6) CVA (cerebral vascular accident): Problem Comment: Per history, no focal acute symptoms Status: Resolved Category: Medical Code(s): I63.9 - Cerebral infarction, unspecified Plan 79-year-old female whose event monitor picked up A-fib with RVR. Presented to the ER for evaluation at the request of her cardiology provider/monitoring service. Discussed case with ER provider, request admission for further management of A-fib with RVR. I decided to admit for further treatment. Off diltiazem drip last night. Tolerating oral diltiazem today with better rate control. Continues to require inpatient management. 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 - Transition to long-acting diltiazem 240 mg extended release. Continue to monitor on telemetry. Goal heart rate less than 110 - Cardiology consulted, will evaluate for possible pacemaker on Tuesday. Will discuss case daily over the weekend. - Continue Lovenox 1 mg/kg twice daily for in the setting of A-fib - Kidney function remains normal with BUN of 11, creatinine 0.8. Potassium 4.1. Magnesium 1.8. - Troponin flat at 0.1. Consistent with type II NSTEMI secondary to supply/demand mismatch from A-fib. - Repeat CBC, CMP, magnesium ordered for the morning - Hold home losartan; continue hydrochlorothiazide 25 mg daily - Resume home metoprolol succinate 25 mg daily - Though Xarelto is on her home med rec, she had not started this medication yet. Will hold pending decision on pacemaker. Reevaluate need for anticoagulation after definitive treatment Hypothyroid: TSH controlled at 1.7. Resume levothyroxine 75 mcg daily Obesity complicates all aspects of her care Full code Cardiac diet Therapeutic Lovenox
[2025-02-02 07:08] LABS: Troponin I 0.10 ng/ml (0.00-0.034)
[2025-02-02 07:42] LABS: Albumin Level 3.6 g/dl (3.5-5.0); Chloride 105 mmol/L (98-107); Sodium 136 mmol/L (136-145)
[2025-02-02 07:43] LABS: Potassium 4.1 mmoL/L (3.5-5.1)
[2025-02-02 07:45] LABS: Alanine Aminotransferase 19 U/L (12-78); Albumin/Globulin Ratio 1.3 (1.1-1.8); Alkaline Phosphatase 98 U/L (38-126); Anion Gap 8.1 mEq/L (5-15); Aspartate Amino Transferase 25 U/L (14-36); Bilirubin,Total 0.5 mg/dl (0.2-1.3); Blood Urea Nitrogen 12 mg/dl (7-17); Calcium 9.5 mg/dl (8.4-10.2); Carbon Dioxide 27 mmol/L (22.0-30.0); Creatinine Clearance Estimated 50 mL/min (50-200); Creatinine,Serum 0.80 mg/dl (0.52-1.04); Estimated Glomerular Filt Rate 69 ml/min (>60); GFR (African American) 84 ML/MIN (>60); Globulin 2.8 g/dL (1.3-3.2); Glucose 98 mg/dl (74-100); Total Protein,Serum 6.4 g/dl (6.3-8.2)
[2025-02-02 07:46] LABS: Magnesium 1.8 mg/dl (1.6-2.3)
[2025-02-02] MEDS: METOPROLOL SUCCINATE XL 25MG TABLET 25 MG PO ×2 (08:54→20:08)
[2025-02-02] MEDS: dilTIAZem ER 240MG CAPSULE 240 MG PO (11:21)
--- NOTE | 2025-02-02 12:15 | PC.NURSE ---
notified of patient complaining of congestion at this time. Primary RN notified of patients heart rate in 120's at this time. Patient is sitting on the side of the bed, eating lunch. Patient is not symptomatic at this time. No new orders received. Continuation of care plan.
--- NOTE | 2025-02-02 12:15 | PC.NURSE ---
notified of patient complaining of congestion at this time. Primary RN notified of patients heart rate in 120's at this time. Patient is sitting on the side of the bed, eating lunch. Patient is not symptomatic at this time. Continuation of care plan.
--- NOTE | 2025-02-02 13:18 | PC.NURSE ---
notified of patients heart rate in 110's-130's at this time. New orders received. Refer to MAR. Continuation of care plan.
--- OUTSIDE RECORDS SUMMARY | 2025-02-02 13:51 | XMS_ITS | Encounter Summary ---
Author Organization Healthcare Address [address] [id number] Care Team Providers Care Health Education Director Name Role Phone Hector Gomez MD Primary Care Provider [phone] Encounter Details Date Type Department Care Team (Late st Contact Info) Description 11/12/2019 [facility] [address] [place] [address] Dental, Provider, DDS [facility] [place] [id number] Social History Tobacco Use Types Packs/Day Years [...] Description 07/04/2025 11:00 AM EST Office Visit [facility] Adult [facility]istry [address] [place] [address] Amos Gabby Pina documented as of this encounter Visit Diagnoses Not on filedocumented in this encounter Care Teams Health Education Director Relationship Specialty Start Date End Date Hector Gomez MD [address] [place], [place] [address] PCP - General 11/07/20 documented as of this encounter
--- OUTSIDE RECORDS SUMMARY | 2025-02-02 13:51 | XMS_ITS | Clinical Summary ---
Author Organization [facility] Address [address] [place] [address] Phone Care Team Providers Care History Faculty Member Name Role Phone Unavailable Unavailable Conditions or Problems No information available. Medications No information available. Medications Administered No information available. Allergies, Adverse Reactions, Alerts No information available. Results No information available. Plan of Care No information available. Procedures No information available. Vital Signs No information available. Immunizations No information available. Advance Directives No information available.
--- OUTSIDE RECORDS SUMMARY | 2025-02-02 13:51 | XMS_ITS | Encounter Summary ---
Author Organization [facility] Address [address] [place] [address] Care Team Providers Care Tapper Bit Name Role Phone Ricky Denney MD Primary Care Provider [phone] Encounter Details Date Type Department Care Team [...] Description 02/06/2025 11:00 AM EDT Hospital Encounter [facility] OUT[facility]IENT [facility] [address] [place] [phone] documented as of this encounter Visit Diagnoses Not on filedocumented in this encounter Care Teams Tapper Bit Relationship Specialty Start Date End Date Ricky Denney MD [address] [place] [address] PCP - General Colon and Rectal Surgery 02/13/16 documented as of this encounter
--- OUTSIDE RECORDS SUMMARY | 2025-02-02 13:51 | XMS_ITS | Clinical Summary ---
Author Organization [facility] Address [address] [place] [address] Care Team Providers Care Coupler Name Role Phone Hector Gomez MD Primary Care Provider [phone] Allergies Active Allergy Reactions Criticality Noted Date [...] Description 01/04/2025 11:15 AM EDT Office Visit [facility] Adult Dentistry [address] [place] [address] Krystina Duran, PETEY Dental caries (Primary Dx) 01/04/2025 Travel 11/23/2024 11:00 AM EDT Office Visit [facility] Adult Dentistry [address] [place] [address] Gabby Trinidad Dental calculus (Primary Dx) 11/23/2024 [...] Description 07/04/2025 11:00 AM EST Office Visit [facility] [address] [place] [address] Gabby Trinidad Health Maintenance Due Date Last Done Comments Dental X-Ray: Full Mouth 1944 [facility]-Bone Density Scan 1944 [facility]-Depression Screening 1944 [facility]-Medicare Annual Wellness (AWV) 1944 [facility]-/Child/Adol SDOH Screenings 1944 [facility]- SDOH Screenings 1962 [facility]-Adult SDOH Screenings 1962 [facility]-Zoster Vaccines (1 of 2) 1994 [facility]-RSV Vaccine: 60+ Years or (1 - 1-dose 75+ series) 2019 [id number] Vaccine ( season) 2024 06/30/2021, 09/15/2020, 08/18/2020 [...] Dental calculus from Last 3 Months Insurance [facility] MEDICARE Care Teams Coupler Relationship Specialty Start Date End Date Hector Gomez MD [address] [place] [address] PCP - General 11/07/20
--- OUTSIDE RECORDS SUMMARY | 2025-02-02 13:51 | XMS_ITS | Clinical Summary ---
Author Organization [facility] Address [address] [place] [address] Phone Care Team Providers Care Supervisor Inspecting Name Role Phone Hector Gomez MD Primary Care Provider [phone] Allergies Active Allergy Reactions Criticality Noted Date Comments No Known Drug Allergies Other (See Comments) 04/28/2017 No allergies to meds Spice Flavor Swelling 04/28/2017 Pepper, sesame, coconut and oregano Medications levothyroxine (SYNTHROID) 112 mcg Take 112 mcg by mouth daily field cane scaler. Active INFLIXIMAB (REMICADE IV) Inject into the vein. Every 8 weeks Active polyethylene glycol (GLYCOLAX, MIRALAX) 17 gram packet Take 17 g by mouth daily. Active loratadine (CLARITIN) 10 mg tablet Take 10 mg by mouth daily. As needed Active fluticasone (FLONASE) 50 mcg/actuation Nasl [place], Suspension 1 [place] by Nasal route daily. Active mesalamine (LIALDA) [...] (04/20/2017): Added automatically from request for surgery [id number] Secondary cataract, left eye 01/18/2012 01/18/2012 Encounters Date Type Department Care Team Description 11/05/2024 10:45 AM EDT Office Visit [facility] [address] [place] [address] Sergio Wang MD Keratitis sicca [...] INTRAOCULAR LENS; Surgeon: Ricky Montiel MD; Location: [facility]; Service: Ophthalmology Medical devices from this [...] EST Office Visit [facility] [address] [place] [address] Sergio Wang MD [address] [place] [address] Health Maintenance Due Date Last Done Comments [...] this topic Medical Devices Implanted Type Area Button Reclaimer Device Identifier Shelf Expiration Date Model / Serial / Lot Lens Intraocular Preloaded 20.0 Diopter - [id number] Implanted:Qty: 1 on 05/03/2017 by Ricky Montiel MD at [facility] Right: Eye [facility]:SURG 09/25/2019 [id number] / [id number] / Insurance MEDICARE PPO MR MEDICARE PPO MR MEDICARE PPO MR Care Teams Supervisor Inspecting Relationship Specialty Start Date End Date Hector Gomez MD [address] [address] [address] [place] [address] PCP - General Family Medicine 01/28/17
--- OUTSIDE RECORDS SUMMARY | 2025-02-02 13:51 | XMS_ITS | Encounter Summary ---
Author Organization Healthcare Address [address] [place] [address] Care Team Providers Care Planning Division Superintendent Name Role Phone Hector Gomez MD Primary Care Provider [phone] Encounter Details Date Type Department Care Team [...] Visit [facility] [address] [place] [address] Gabby Trinidad documented as of this encounter Visit Diagnoses Not on filedocumented in this encounter Additional Health Concerns Assessment Noted Time A Body Mass Index follow-up plan has been documented for the patient 01/04/2025 4:46 PM EDT documented as of this encounter Care Teams Planning Division Superintendent Relationship Specialty Start Date End Date Hector Gomez MD [address] [place] [address] PCP - General 11/07/20 documented as of this encounter
--- OUTSIDE RECORDS SUMMARY | 2025-02-02 13:51 | XMS_ITS | Clinical Summary ---
Author Organization [facility] Address [address] [place] [address] Care Team Providers Care Patient Observation Assistant Name Role Phone Ricky Denney MD Primary Care Provider [phone] Allergies No known active allergies Medications levothyroxine [...] Description 01/29/2025 3:30 PM EDT Office Visit 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); Crohn's disease of large intestine without complication; Constipation, unspecified constipation type 01/29/2025 Travel 12/12/2024 11:00 AM EDT Infusion [facility] OUTPATIENT ONCOLOGY AT [facility] [address] [place] [address] Crohn's disease without complication, unspecified [...] Description 02/06/2025 11:00 AM EDT Hospital Encounter [facility] OUTPATIENT ONCOLOGY [address] [place] [address] Health Maintenance Due Date Last Done Comments [...] Health Maintenance Insurance [employer] [place] [address] Care Teams Patient Observation Assistant Relationship Specialty Start Date End Date Ricky Denney MD [address] [place] [address] PCP - General Colon and Rectal Surgery 02/13/16
--- OUTSIDE RECORDS SUMMARY | 2025-02-02 13:51 | XMS_ITS | Clinical Summary ---
Author Organization [facility] Address [address] [place] [address] Care Team Providers Care Lieutenant Ballistics Name Role Phone Hector Gomez MD Primary Care Provider [phone] Source Comments This information has been disclosed [...] therelease of HIV test results or diagnoses. [id number] Allergies Active Allergy Reactions Criticality Noted Date Comments Egg Derived 12/02/2013 Medications ufybwtan-tmvk-f in-folic acid (CENTRUM) 3,500-18-0.4 unit-mg-mg Chew Chew [...] Advance Directives For more information, please contact: [phone] * Full Code (Latest Code Status on File) Date Activated Date Inactivated Comments 07/05/2022 8:45 PM 07/07/2022 10:06 PM Care Teams Lieutenant Ballistics Relationship Specialty Start Date End Date Hector Gomez MD [address] [facility] [address] [place] [id number] PCP - General Family Medicine 07/06/22
--- OUTSIDE RECORDS SUMMARY | 2025-02-02 13:51 | XMS_ITS | Encounter Summary ---
Author Organization Healthcare Address [address] [id number] Care Team Providers Care Director Of Programming Name Role Phone Hector Gomez MD Primary Care Provider [phone] Encounter Details Date Type Department Care Team (Late st Contact Info) Description 11/12/2019 [facility] [address] [place] [address] Dental, Provider, DDS [facility] [place] [id number] Social History Tobacco Use Types Packs/Day Years [...] Description 07/04/2025 11:00 AM EST Office Visit [facility] Adult [facility]istry [address] [place] [address] Amos Gabby Pina documented as of this encounter Visit Diagnoses Not on filedocumented in this encounter Care Teams Director Of Programming Relationship Specialty Start Date End Date Hector Gomez MD [address] [place], [place] [address] PCP - General 11/07/20 documented as of this encounter
--- OUTSIDE RECORDS SUMMARY | 2025-02-02 13:51 | XMS_ITS | Encounter Summary ---
Author Organization [facility] Address [address] [place] [address] Care Team Providers Care Letterpress Setter Name Role Phone Ricky Denney MD Primary Care Provider [phone] Encounter Details Date Type Department Care Team [...] AM EDT Hospital Encounter [facility] OUTPATIENT ONCOL[facility] [address] [place] [address] documented as of this encounter Visit Diagnoses Not on filedocumented in this encounter Care Teams Letterpress Setter Relationship Specialty Start Date End Date Ricky Denney MD [address] [place] [address] PCP - General Colon and Rectal Surgery 02/13/16 documented as of this encounter
--- OUTSIDE RECORDS SUMMARY | 2025-02-02 13:51 | XMS_ITS | Encounter Summary ---
Author Organization Healthcare Address [address] [id number] Care Team Providers Care Film Reproducer Name Role Phone Hector Gomez MD Primary Care Provider [phone] Encounter Details Date Type Department Care Team (Late st Contact Info) Description 11/12/2019 [facility] [address] [place] [address] Dental, Provider, DDS [facility] [place] [id number] Social History Tobacco Use Types Packs/Day Years [...] Description 07/04/2025 11:00 AM EST Office Visit [facility] Adult Dentistry [address] [place] [address] Amos Gabby Pina documented as of this encounter Visit Diagnoses Not on filedocumented in this encounter Care Teams Film Reproducer Relationship Specialty Start Date End Date Hector Gomez MD [address] [place], [place] [address] PCP - General 11/07/20 documented as of this encounter
--- NOTE | 2025-02-02 14:37 | PC.NURSE ---
Primary RN notified of patients heart rate of 90's-110's at this time. No new orders received. Continuation of care plan.
--- NOTE | 2025-02-02 14:50 | PC.NURSE ---
Patients oxygen weaned down from to 2 L NC to room air at this time. Patients oxygen is 97 % on room air. Continuation of care plan.
--- NOTE | 2025-02-02 16:04 | PC.NURSE ---
Per states let me know if patients heart rate sustains 140's-150's. Continuation of care plan.
--- NOTE | 2025-02-02 17:00 | PC.NURSE ---
Report given to BRITANY Guerrero.
--- NOTE | 2025-02-02 17:17 | PC.NURSE ---
Patient transferred via wheelchair to Medical Surgical floor room 212 by ICU staff.
[2025-02-03] VITALS (8 sets, daily range): BP systolic 83–119; BP diastolic 42–74; PULSE 89–138; RESP 14–19; TEMP 36.6–36.8; O2SAT 93–97; BMI 32.8
--- NOTE | 2025-02-03 02:50 | PC.NURSE ---
Pt AO4, pleasant. HR running in 110s-130s. Denies chest pain. Provider aware. Currently resting in bed with eyes closed. Respirations even and unlabored. Bed low, locked, and call light is in reach.
[2025-02-03] MEDS: LEVOTHYROXINE 75MCG (0.075MG) TAB 75 MCG PO (06:04)
[2025-02-03 06:22] LABS: Hematocrit 34.5 % (37.0-47.0); Hemoglobin 10.7 g/dL (12.2-16.2); Immature Granulocytes % 0.4 %; Mean Corpuscular HGB Conc 31.0 g/dL (31.8-35.4); Mean Corpuscular Hemoglobin 28.8 pg (27.0-31.2); Mean Corpuscular Volume 93.0 fl (81-99); Nucleated Red Blood Cells % 0 %; Platelet Count 326 K/mm3 (142-424); Red Blood Count 3.71 M/mm3 (4.20-5.40); Red Cell Distribution Width-SD 46.7 fL; White Blood Count 7.2 K/mm3 (4.8-10.8)
[2025-02-03 06:28] LABS: Albumin Level 3.4 g/dl (3.5-5.0); Chloride 104 mmol/L (98-107); Sodium 134 mmol/L (136-145)
[2025-02-03 06:29] LABS: Potassium 3.2 mmoL/L (3.5-5.1)
[2025-02-03 06:31] LABS: Alanine Aminotransferase 15 U/L (12-78); Alkaline Phosphatase 98 U/L (38-126); Anion Gap 6.2 mEq/L (5-15); Aspartate Amino Transferase 21 U/L (14-36); Bilirubin,Total 0.4 mg/dl (0.2-1.3); Blood Urea Nitrogen 11 mg/dl (7-17); Carbon Dioxide 27 mmol/L (22.0-30.0); Creatinine Clearance Estimated 52 mL/min (50-200); Creatinine,Serum 0.90 mg/dl (0.52-1.04); Estimated Glomerular Filt Rate 60 ml/min (>60); GFR (African American) 73 ML/MIN (>60)
[2025-02-03 06:32] LABS: Albumin/Globulin Ratio 1.3 (1.1-1.8); Calcium 8.9 mg/dl (8.4-10.2); Globulin 2.7 g/dL (1.3-3.2); Glucose 94 mg/dl (74-100); Magnesium 1.8 mg/dl (1.6-2.3); Total Protein,Serum 6.1 g/dl (6.3-8.2)
[2025-02-03] MEDS: dilTIAZem ER 240MG CAPSULE 240 MG PO ×2 (08:13→20:22)
[2025-02-03] MEDS: POTASSIUM CHLORIDE 20MEQ TAB 40 MEQ PO ×2 (08:14→13:18)
[2025-02-03] MEDS: METOPROLOL SUCCINATE XL 25MG TABLET 25 MG PO (08:23)
--- NOTE | 2025-02-03 12:59 | EXP.ACUTE.PN ---
Subjective *Date: 02/03/25 *Time: 12:59 Interval history: Has a mild cough this morning. Nonproductive. Denies chest pain or shortness of breath. No nausea or vomiting. Afebrile. Heart rate variable overnight, intermittently in the 90s and as high as 120s/130s Medical Exam Vital signs and Labs for Last 24 Hours: Vital Signs Temp Pulse Pulse Resp BP BP Pulse Ox 02/03/25 12:57 02/03/25 12:00 98.1 F 138 H 18 117/73 95 02/03/25 11:00 02/03/25 09:00 02/03/25 08:00 02/03/25 08:00 96 H 02/03/25 07:22 97.9 F 128 H 19 105/42 L 93 L 02/03/25 06:46 02/03/25 05:00 02/03/25 04:00 97.9 F 128 H 16 83/62 L 94 L 02/03/25 04:00 130 H 02/03/25 03:00 02/03/25 01:00 02/03/25 00:00 110 H 02/03/25 00:00 97.8 F 128 H 14 86/71 L 96 02/02/25 23:00 02/02/25 21:00 02/02/25 20:00 130 H 02/02/25 20:00 02/02/25 19:33 98.1 F 123 H 16 102/59 L 93 L 02/02/25 19:00 02/02/25 17:00 02/02/25 16:45 125 H 18 91 L 02/02/25 16:30 75 17 93 L 02/02/25 16:15 100 H 20 90 L 02/02/25 16:00 101 H 22 98/60 L 95 02/02/25 16:00 136 H 02/02/25 15:45 128 H 22 92 L 02/02/25 15:30 98 H 22 91 L 02/02/25 15:15 128 H 19 94 L 02/02/25 15:00 94 H 15 108/51 L 94 L 02/02/25 15:00 02/02/25 14:52 111 H 97 02/02/25 14:48 141 H 22 92 L 02/02/25 14:30 79 19 95 02/02/25 14:15 90 14 94 L 02/02/25 14:00 135 H 17 96/52 L 94 L 02/02/25 13:45 122 H 21 95 02/02/25 13:41 139 H 14 93/56 L 97 02/02/25 13:30 141 H 17 96 02/02/25 13:29 141 H 15 104/71 L 97 02/02/25 13:01 21 108/66 L 02/02/25 13:00 O2 Del Method O2 Flow Rate 02/03/25 12:57 Room Air 02/03/25 12:00 Room Air 02/03/25 11:00 Room Air 02/03/25 09:00 Room Air 02/03/25 08:00 Room Air 02/03/25 08:00 02/03/25 07:22 Room Air 02/03/25 06:46 Room Air 02/03/25 05:00 Room Air 02/03/25 04:00 Room Air 02/03/25 04:00 02/03/25 03:00 Room Air 02/03/25 01:00 Room Air 02/03/25 00:00 02/03/25 00:00 Room Air 02/02/25 23:00 Room Air 02/02/25 21:00 Room Air 02/02/25 20:00 02/02/25 20:00 Room Air 02/02/25 19:33 Room Air 02/02/25 19:00 Room Air 02/02/25 17:00 Nasal Cannula 02/02/25 16:45 Room Air 02/02/25 16:30 Room Air 02/02/25 16:15 Room Air 02/02/25 16:00 Room Air 02/02/25 16:00 02/02/25 15:45 Room Air 02/02/25 15:30 Room Air 02/02/25 15:15 Room Air 02/02/25 15:00 Room Air 02/02/25 15:00 Room Air 02/02/25 14:52 Room Air 02/02/25 14:48 Nasal Cannula 2 02/02/25 14:30 Nasal Cannula 2 02/02/25 14:15 Nasal Cannula 2 02/02/25 14:00 Nasal Cannula 2 02/02/25 13:45 Nasal Cannula 2 02/02/25 13:41 Nasal Cannula 2 02/02/25 13:30 Nasal Cannula 2 02/02/25 13:29 Nasal Cannula 2 02/02/25 13:01 02/02/25 13:00 Nasal Cannula 2 Intake and Output 02/02/25 02/03/25 02/03/25 23:59 07:59 15:59 Intake Total 270 / 843.575 0 / 600 600 / 600 Output Total 0 / 0 Balance 270 / 842.575 0 / 600 600 / 600 Intake: Intake, Oral Amount 270 / 750 0 / 600 600 / 600 Output: Output, Urine Amount 0 / 0 Other: Number of Unmeasured Voids 1 Weight 74.026 kg Patient Weight 02/03/25 23:59 Weight 74.026 kg Laboratory Results - last 24 hr 02/03/25 05:55: WBC 7.2, RBC 3.71 L, Hgb 10.7 L, Hct 34.5 L, MCV 93.0, MCH 28.8, MCHC 31.0 L, RDW 13.8, Plt Count 326, MPV 10.8 H, Neut % (Auto) 53.3, Lymph % (Auto) 32.5, [place] % (Auto) 10.5 H, Eos % (Auto) 2.9, Baso % (Auto) 0.4, Neut # (Auto) 3.8, Lymph # (Auto) 2.3, [place] # (Auto) 0.8, Eos # (Auto) 0.2, Baso # (Auto) 0.0, Sodium 134 L, Potassium 3.2 L D, Chloride 104, Carbon Dioxide 27, Anion Gap 6.2, BUN 11, Creatinine 0.90, Estimated Creat Clear 52, Estimated GFR 60, Est GFR ( Amer) 73, Glucose 94, Calcium 8.9, Magnesium 1.8, Total Bilirubin 0.4, AST 21, ALT 15, Alkaline Phosphatase 98, Total Protein 6.1 L, Albumin 3.4 L, Globulin 2.7, Albumin/Globulin Ratio 1.3 I & O for Labs for Last 24 Hours: Intake & Output 01/31/25 02/01/25 02/02/25 02/03/25 23:59 23:59 23:59 23:59 Intake Total 8.8 / 8.8 843.575 / 843.575 600 / 600 Output Total 0 / 0 1 / 1 0 / 0 Balance 8.8 / 8.8 842.575 / 842.575 600 / 600 Weight 70.2 kg 71.2 kg 74.026 kg Constitutional: Present no acute distress, obese and cooperative Head: Present atraumatic and normocephalic ENT: Present normal exam Respiratory: Present normal respiratory effort; Absent respiratory distress, stridor, wheezes or crackles Cardiac: Present Regular Rate and Irregularly Regular GI: Present soft and normal bowel sounds; Absent distention or tenderness Extremities: Present normal inspection and full ROM; Absent edema Skin: Present intact; Absent erythema Neuro: Present Grossly Intact, alert, awake, oriented x 3 and moves all extremities Assessment and Plan *Assessment and plan (1) Atrial fibrillation with RVR: Status: Acute Category: Medical Code(s): I48.91 - Unspecified atrial fibrillation (2) HTN (hypertension): Status: Chronic Qualifiers: Hypertension type: essential hypertension Qualified Code(s): I10 - Essential (primary) hypertension Category: Medical Code(s): I10 - Essential (primary) hypertension (3) HLD (hyperlipidemia): Status: Chronic Qualifiers: Hyperlipidemia type: mixed hyperlipidemia Qualified Code(s): E78.2 - Mixed hyperlipidemia Category: Medical Code(s): E78.5 - Hyperlipidemia, unspecified (4) Crohn's disease: Status: Acute Category: Medical Code(s): K50.90 - Crohn's disease, unspecified, without complications (5) Acquired hypothyroidism: Status: Acute Category: Medical Code(s): E03.9 - Hypothyroidism, unspecified (6) CVA (cerebral vascular accident): Problem Comment: Per history, no focal acute symptoms Status: Resolved Category: Medical Code(s): I63.9 - Cerebral infarction, unspecified Plan 79-year-old female whose event monitor picked up A-fib with RVR. Presented to the ER for evaluation at the request of her cardiology provider/monitoring service. Discussed case with ER provider, request admission for further management of A-fib with RVR. I decided to admit for further treatment. Continues to have intermittent A-fib RVR, titrating oral regimen. Cardiology to evaluate again in the morning. Continues to require patient management. 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 - Transition to long-acting diltiazem 240 mg extended release, increase to twice daily. Continue to monitor on telemetry. Goal heart rate less than 110 - Cardiology consulted, will evaluate for possible pacemaker on Tuesday. Will discuss case daily over the weekend. - Continue Lovenox 1 mg/kg twice daily for in the setting of A-fib - Kidney function remains normal with BUN of 11, creatinine 0.9. Potassium 3.2, replaced per protocol. Magnesium 1.8. - Troponin flat at 0.1. Consistent with type II NSTEMI secondary to supply/demand mismatch from A-fib. - Repeat CBC, CMP, magnesium ordered for the morning - Hold home losartan; continue hydrochlorothiazide 25 mg daily - Resume home metoprolol succinate 25 mg twice daily - Though Tanja is on her home med rec, she had not started this medication yet. Will hold pending decision on pacemaker. Reevaluate need for anticoagulation after definitive treatment - Administer Lasix 40 mg IV once due to patient's complaint of cough. Hypothyroid: TSH controlled at 1.7. Resume levothyroxine 75 mcg daily Obesity complicates all aspects of her care Full code Cardiac diet Therapeutic Lovenox
[2025-02-03] MEDS: FUROSEMIDE 40MG/4ML VIAL 40 MG IV (13:17)
--- NOTE | 2025-02-03 15:07 | PC.NURSE ---
AOX4, AMBULATING IN ROOM INDEPENDENTLY. SHE HAS NOT REQUIRED O2 SUPPORT TODAY. REMAINS IN AFIB ON TELE WITH HR FLUCTUTATING FROM 100S-120S. NOT COMPLAINTS THUS FAR.
[2025-02-04] VITALS (15 sets, daily range): BP systolic 84–122; BP diastolic 51–75; PULSE 60–150; RESP 16–20; TEMP 36.4–36.6; O2SAT 92–96; BMI 32.8
--- NOTE | 2025-02-04 02:05 | PC.NURSE ---
AOx4, pleasant. No acute changes this shift. pt has been npo since 0000 for possible pacemaker placement this am. pt is currently resting in bed with eyes closed. respirations even and unlabored. bed is low, locked, and call light is in reach.
[2025-02-04] MEDS: LEVOTHYROXINE 75MCG (0.075MG) TAB 75 MCG PO (06:11)
[2025-02-04 06:59] LABS: Hematocrit 34.2 % (37.0-47.0); Hemoglobin 11.1 g/dL (12.2-16.2); Immature Granulocytes % 0.2 %; Mean Corpuscular HGB Conc 32.5 g/dL (31.8-35.4); Mean Corpuscular Hemoglobin 29.8 pg (27.0-31.2); Mean Corpuscular Volume 91.7 fl (81-99); Nucleated Red Blood Cells % 0 %; Platelet Count 351 K/mm3 (142-424); Red Blood Count 3.73 M/mm3 (4.20-5.40); Red Cell Distribution Width-SD 46.4 fL; White Blood Count 6.6 K/mm3 (4.8-10.8)
[2025-02-04 07:01] LABS: Albumin Level 3.4 g/dl (3.5-5.0); Chloride 101 mmol/L (98-107); Potassium 3.3 mmoL/L (3.5-5.1); Sodium 137 mmol/L (136-145)
[2025-02-04 07:04] LABS: Alanine Aminotransferase 15 U/L (12-78); Albumin/Globulin Ratio 1.3 (1.1-1.8); Alkaline Phosphatase 94 U/L (38-126); Anion Gap 9.3 mEq/L (5-15); Aspartate Amino Transferase 22 U/L (14-36); Bilirubin,Total 0.3 mg/dl (0.2-1.3); Blood Urea Nitrogen 11 mg/dl (7-17); Carbon Dioxide 30 mmol/L (22.0-30.0); Creatinine Clearance Estimated 52 mL/min (50-200); Creatinine,Serum 0.90 mg/dl (0.52-1.04); Estimated Glomerular Filt Rate 60 ml/min (>60); GFR (African American) 73 ML/MIN (>60); Globulin 2.7 g/dL (1.3-3.2); Total Protein,Serum 6.1 g/dl (6.3-8.2)
[2025-02-04 07:05] LABS: Calcium 9.1 mg/dl (8.4-10.2); Glucose 93 mg/dl (74-100)
[2025-02-04 07:36] LABS: Magnesium 1.7 mg/dl (1.6-2.3)
--- NOTE | 2025-02-04 07:49 | CA_ITS ---
APPROVED REPORT EXAM: Comprehensive 2D, Doppler, and color-flow Echocardiogram Chair Finisher: Khushboo Clark RVT Ht: 4 ft 11 in Wt: 163lbs BSA: 1.69 BP: 135/94 mmHg Indications: TACHY-VÍCTOR SYNDROME 2D Dimensions LA Volume 59.10 mL LA Volume Index 34.97 mL/m2 (M/F) 16-34 M-Mode Dimensions RVDd 2.41 cm (0.9-2.6) LA Diam 3.95 cm (1.9-4.0) LVDd 4.26 cm (3.5-5.7) LVDs 3.02 cm (3.5-5.7) IVSd 1.24 cm (0.6-1.1) PWd 1.01 cm (0.6-1.1) EF (Teich) 56.20% FS 29.10% EDV (Teich) 81.30 mL TAPSE 1.69 (<1.7) ESV (Teich) 35.60 mL Aortic Valve MINGO Index 1.69 cm2/m2 AoV Peak Yamil. 97.0 (50-130 cm/s) AO Peak GR. 3.80 mmHg AO Mean GR. 2.00 (<5 mmHg) AO VTI 16.9 (18-25 cm) MINGO (VTI) 2.92 (2.5-4.5 cm2) Pulmonary Valve PV Peak Velocity 57.0 (50-150 cm/s) Left Ventricle The left ventricle is normal size. Left ventricular systolic function is low-normal. There is increased left ventricular wall thickness. The septum is asynchronous. The left ventricular diastolic function is indeterminate. LVEF is 50% Right Ventricle The right ventricle is normal size. The right ventricular systolic function is normal. Atria The left atrium is moderately dilated. The right atrium is mildly dilated. There is no color Doppler evidence of interatrial shunt. Aortic Valve The aortic valve is mildly thickened. There is no hemodynamically significant aortic valvular stenosis. Trace aortic regurgitation is present. Mitral Valve Moderate mitral annular calcification is present. The mitral valve leaflets are mildly thickened. No evidence of mitral valve stenosis. Mild mitral regurgitation is present. Tricuspid Valve The tricuspid valve leaflets are thin and pliable. Trace tricuspid regurgitation. There is insufficient TR jet to estimate RVSP. Pulmonic Valve The pulmonary valve is grossly normal in structure. Trace pulmonic valve regurgitation is present. Great Vessels The aortic root is normal in size. IVC is normal in size and collapses >50% with inspiration. Pericardium There is no pericardial effusion. Conclusion Low-normal LV systolic function (LVEF 50%). Normal RV size and function. Biatrial dilation. Mild MR. Electronically signed by : Cecille Meza MD 02/04/2025 08:54:53
[2025-02-04] MEDS: METOPROLOL SUCCINATE XL 25MG TABLET 25 MG PO (08:06)
[2025-02-04] MEDS: dilTIAZem ER 240MG CAPSULE 240 MG PO ×2 (08:06→21:06)
--- NOTE | 2025-02-04 09:59 | P.PN_ITS ---
<Statement entered by Marcos Rangel MD - 02/04/25 17:00> Rounded on patient after nurse practitioner. Personally examined and interviewed patient. Agree with exam findings and care plan as documented. Subjective *Date: 02/04/25 *Time: 14:58 Interval history: Patient doing well, lying in bed postprocedure. Pacemaker placement today. Will start new cardiac medication per cardiology's recommendation. Advance diet to cardiac diet for dinner. Medical Exam Vital signs and Labs for Last 24 Hours: Vital Signs Temp Pulse Pulse Resp BP Pulse Ox O2 Del Method 02/04/25 08:00 Room Air 02/04/25 07:44 97.8 F 123 H 18 110/75 94 L Room Air 02/04/25 06:42 Room Air 02/04/25 05:00 Room Air 02/04/25 04:00 100 H 02/04/25 03:00 Room Air 02/04/25 01:00 Room Air 02/04/25 00:00 150 H 02/03/25 23:00 Room Air 02/03/25 21:00 Room Air 02/03/25 20:00 130 H 02/03/25 20:00 Room Air 02/03/25 19:58 98.2 F 115 H 18 102/62 L 97 Room Air 02/03/25 19:00 Room Air 02/03/25 16:20 Room Air 02/03/25 16:00 89 02/03/25 16:00 98.0 F 130 H 18 119/74 93 L Room Air 02/03/25 15:00 Room Air 02/03/25 12:57 Room Air 02/03/25 12:00 111 H 02/03/25 12:00 98.1 F 138 H 18 117/73 95 Room Air 02/03/25 11:00 Room Air Intake and Output 02/03/25 02/04/25 02/04/25 23:59 07:59 15:59 Intake Total 480 / 1440 0 / 0 Output Total 0 / 0 Balance 480 / 1440 0 / 0 Intake: Intake, Oral Amount 480 / 1440 0 / 0 Output: Output, Urine Amount 0 / 0 Other: Number of Unmeasured Voids 1 Weight 74.026 kg Patient Weight 02/04/25 23:59 Weight 74.026 kg Laboratory Results - last 24 hr 02/04/25 06:05: WBC 6.6, RBC 3.73 L, Hgb 11.1 L, Hct 34.2 L, MCV 91.7, MCH 29.8, MCHC 32.5, RDW 13.9, Plt Count 351, MPV 10.8 H, Neut % (Auto) 51.8, Lymph % (Auto) 31.6, [place] % (Auto) 12.8 H, Eos % (Auto) 3.0, Baso % (Auto) 0.6, Neut # (Auto) 3.4, Lymph # (Auto) 2.1, [place] # (Auto) 0.8, Eos # (Auto) 0.2, Baso # (Auto) 0.0, Sodium 137, Potassium 3.3 L, Chloride 101, Carbon Dioxide 30, Anion Gap 9.3, BUN 11, Creatinine 0.90, Estimated Creat Clear 52, Estimated GFR 60, Est GFR ( Amer) 73, Glucose 93, Calcium 9.1, Magnesium 1.7, Total Bilirubin 0.3, AST 22, ALT 15, Alkaline Phosphatase 94, Total Protein 6.1 L, Albumin 3.4 L, Globulin 2.7, Albumin/Globulin Ratio 1.3 I & O for Labs for Last 24 Hours: Intake & Output 02/01/25 02/02/25 02/03/25 02/04/25 23:59 23:59 23:59 23:59 Intake Total 8.8 / 8.8 843.575 / 975.141 1683 / 1440 0 / 0 Output Total 0 / 0 1 / 1 0 / 0 0 / 0 Balance 8.8 / 8.8 842.575 / 628.083 7293 / 1440 0 / 0 Weight 70.2 kg 71.2 kg 74.026 kg 74.026 kg Constitutional: Present no acute distress, obese and cooperative Head: Present atraumatic and normocephalic ENT: Present normal exam Respiratory: Present normal respiratory effort; Absent respiratory distress, stridor, wheezes or crackles Cardiac: Present Regular Rate and Irregularly Regular GI: Present soft and normal bowel sounds; Absent distention or tenderness Extremities: Present normal inspection and full ROM; Absent edema Skin: Present intact; Absent erythema Neuro: Present Grossly Intact, alert, awake, oriented x 3 and moves all extremities Assessment and Plan *Assessment and plan (1) Atrial fibrillation with RVR: Status: Acute Category: Medical Code(s): I48.91 - Unspecified atrial fibrillation (2) HTN (hypertension): Status: Chronic Qualifiers: Hypertension type: essential hypertension Qualified Code(s): I10 - Essential (primary) hypertension Category: Medical Code(s): I10 - Essential (primary) hypertension (3) HLD (hyperlipidemia): Status: Chronic Qualifiers: Hyperlipidemia type: mixed hyperlipidemia Qualified Code(s): E78.2 - Mixed hyperlipidemia Category: Medical Code(s): E78.5 - Hyperlipidemia, unspecified (4) Crohn's disease: Status: Acute Category: Medical Code(s): K50.90 - Crohn's disease, unspecified, without complications (5) Acquired hypothyroidism: Status: Acute Category: Medical Code(s): E03.9 - Hypothyroidism, unspecified (6) CVA (cerebral vascular accident): Problem Comment: Per history, no focal acute symptoms Status: Resolved Category: Medical Code(s): I63.9 - Cerebral infarction, unspecified Plan 79-year-old female whose event monitor picked up A-fib with RVR. Presented to the ER for evaluation at the request of her cardiology provider/monitoring service. Discussed case with ER provider, request admission for further management of A-fib with RVR. Continues to have intermittent A-fib RVR, titrating oral regimen. Cardiology to evaluated and recommends pacemaker placement today. Continues to require patient management. 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 - Transition to long-acting diltiazem 240 mg extended release, increase to twice daily. Continue to monitor on telemetry. Goal heart rate less than 110 - Cardiology consulted, plans for patient to have pacemaker placed this afternoon. - Continue Lovenox 1 mg/kg twice daily for in the setting of A-fib?on hold for pacemaker placement. - Kidney function remains normal with BUN of 11, creatinine 0.9. Potassium 3.3, replaced per protocol. Magnesium 1.7, replace per protocol. - Troponin flat at 0.1. Consistent with type II NSTEMI secondary to supply/demand mismatch from A-fib. - CBC, CMP, magnesium ordered for the morning. - Hold home losartan; continue hydrochlorothiazide 25 mg daily - Transition from metoprolol succinate 25 mg twice daily to bisoprolol 2.5 mg daily per cardiology recommendation. - Though Xarelto is on her home med rec, she had not started this medication yet. Will start Xarelto 20 mg daily per cardiology recommendation. #Hypothyroid: TSH controlled at 1.7. Resume levothyroxine 75 mcg daily Obesity complicates all aspects of her care Full code Cardiac diet Therapeutic Lovenox?on hold for procedure
--- NOTE | 2025-02-04 10:23 | P.CONCA_ITS ---
History of Present Illness History of Present Illness Consult date: 02/04/25 Requesting physician: Marcos Rangel Consult reason: atrial fibrillation Chief complaint: Tachy-John syndrome Additional Medical History:: 1. CAD A. [facility], 2016, mild to moderate CAD. B. GXT myoview, 2022, normal. 2. Tachybradycardia syndrome with new onset A-fib, 01/2025 with Xarelto just started last week. A. History of CVA, 06/2022, status post tPA at [facility]. No residual B. [employer], 2022, PACs, atrial couplets and atrial runs with PSVT and PVCs/ventricular couplets/runs of nonsustained V. tach. C. TIA, 11/2023, Went to ER. No residual. Head CT and CTA unremarkable. D. Echo with bubble study, 11/2023, no shunt. E. Loop recorder implantation, 03/2024 3. Melkersson-Nunu syndrome A. Crohn's disease 4. HTN A. Echo, 2023, EF 55% 5. Hypothyroidism, on replacement History of present illness: 79-year-old female who reports to the ER after being called by her monitoring company for her event monitor. She was at home moving furniture when she got a phone call that stated she needed to go to the hospital for evaluation. Was fou nd to be in A-fib with RVR. Event monitor has been in place due to intermittent A-fib and adjustment of medications where she has fluctuated between A-fib with RVR and bradycardia. Was recently on bisoprolol when her heart rate was in the 30s to 40s. Stated she felt pretty good when her heart rate was at low. Transitioned to metoprolol that she is currently on. Heart rate is still fast and irregular. Has had shortness of breath for about 2 weeks with a cough. Was diagnosed with bronchitis a week ago but shortness of breath is not any better. Concerned the symptoms may be related to her A-fib. Denies chest pain, nausea, vomiting, confusion, headache. Feels like her heart is fluttering somewhat. Is at her baseline level of function, daughter at bedside helps supplement history. Patient has history of hypothyroid, CVA, hypertension. Workup in the ER with relatively unremarkable labs. EKG showing left anterior fascicular block and A- fib with RVR. Initial troponin detectable at 0.1. TSH controlled at 1.7. Administered 5 of metoprolol with no improvement in heart rate. Administered IV diltiazem 10 mg once and cardiology was consulted. They recommended considering diltiazem drip. Medicine consulted for admission. Patient admitted to stepdown level of care due to initiation of diltiazem drip. On my evaluation however patient is asymptomatic. Denies chest pain. Alert and oriented x 4. Overall feels well on room air. Discussed initiating drip versus trialing oral diltiazem given her clinical stability. The above per Dr. Rangel. Events as noted above reviewed with the patient. Her tacky bradycardia/A-fib is poorly controlled with beta-blockers (propranolol and metoprolol) but was overly controlled with even low-dose bisoprolol (resulting in heart rates in the high 30s and low 40s). In light of the patient's tachycardia/bradycardia/A-fib that is poorly controlled on current medical therapy, I recommend the patient proceed with pacemaker implantation. Risk, benefits and procedure explained to the patient and she agrees to proceed. Echocardiogram today shows an EF of 50% but she is in A-fib. [facility] Disclaimer: The information contained in this section may have been updated after the patient was seen, as this information can be updated by other users. 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 Vitamin B12 deficiency Vitamin D deficiency Insect bite Hypokalemia Tricuspid regurgitation Left knee pain Neuritis Ventricular tachycardia PSVT (paroxysmal supraventricular tachycardia) PVC (premature ventricular contraction) PAC (premature atrial contraction) Anal stenosis Hemorrhoids Acquired anal stenosis Crohn's disease Acquired hypothyroidism CVA (cerebral vascular accident) Wrist fracture SOB (shortness of breath) Bradycardia HLD (hyperlipidemia) HTN (hypertension) CAD (coronary artery disease) Surgical History History of loop recorder Hx of cataract surgery History of appendectomy History of carpal tunnel surgery History of hysterectomy History of cholecystectomy History of ankle surgery Family History Coronary artery disease Social History Smoking Status: Never smoker alcohol intake: current substance use type: denies use current occupational status: unemployed and retired Travel in the last 8 weeks?: Inside the [place] caffeine: Yes Have you lived/traveled outside US in past 30 days?: No Contact w/someone who lives/traveled outside US past 30 days?: No Exposure to someone with infectious disease in past 14 days?: No Do you have a fever (greater than 100.4 F or 38 C)?: No Have you tested positive for COVID-19?: No Exposed to someone with COVID-19 in past 14 days?: No Do you have a sore throat?: No Do you have a cough?: No Do you have any weakness?: No Do you have any diarrhea?: No Are you experiencing any unusual bleeding?: No Do you have any muscle aches/pain?: No Do you have any abdominal pain?: No Are you experiencing loss of taste or smell?: No Review of Systems Review of Systems Review of systems:: pertinent systems reviewed and negative unless documented below Constitutional Constitutional: Denies weakness *Cardiovascular Cardiovascular: Denies chest pain, Reports dyspnea on exertion and Reports rapid heart rate *Respiratory Respiratory: Reports dyspnea on exertion *Gastrointestinal Gastrointestinal: Denies abdominal pain *Neurologic Neurologic: Denies weakness Exam Data for Last 24 hours Vital signs and Labs for Last 24 Hours: Temp Pulse Resp BP Pulse Ox O2 Del Method O2 Flow Rate 97.8 F 123 H 18 110/75 94 L Room Air 2 02/04/25 07:44 02/04/25 07:44 02/04/25 07:44 02/04/25 07:44 02/04/25 07:44 02/04/25 08:00 02/02/25 14:48 Laboratory Results - last 24 hr 02/04/25 06:05: WBC 6.6, RBC 3.73 L, Hgb 11.1 L, Hct 34.2 L, MCV 91.7, MCH 29.8, MCHC 32.5, RDW 13.9, Plt Count 351, MPV 10.8 H, Neut % (Auto) 51.8, Lymph % (Auto) 31.6, [place] % (Auto) 12.8 H, Eos % (Auto) 3.0, Baso % (Auto) 0.6, Neut # (Auto) 3.4, Lymph # (Auto) 2.1, [place] # (Auto) 0.8, Eos # (Auto) 0.2, Baso # (Auto) 0.0, Sodium 137, Potassium 3.3 L, Chloride 101, Carbon Dioxide 30, Anion Gap 9.3, BUN 11, Creatinine 0.90, Estimated Creat Clear 52, Estimated GFR 60, Est GFR ( Amer) 73, Glucose 93, Calcium 9.1, Magnesium 1.7, Total Bilirubin 0.3, AST 22, ALT 15, Alkaline Phosphatase 94, Total Protein 6.1 L, Albumin 3.4 L, Globulin 2.7, Albumin/Globulin Ratio 1.3 I & O for Last 24 hours: Intake & Output 02/01/25 02/02/25 02/03/25 02/04/25 11:59 11:59 11:59 11:59 Intake Total 342.375 / 036.544 8086 / 1110 840 / 840 Output Total 0 / 0 1 / 1 0 / 0 Balance 342.375 / 505.065 0352 / 1109 840 / 840 Weight 156 lb 15.506 oz 163 lb 3.2 oz 163 lb 3.19 oz Constitutional Constitutional: no acute distress *Routine Respiratory Exam Respiratory: Present CTA bilaterally; Absent rhonchi or crackles *Routine Cardiovascular Exam Cardiovascular: Present tachycardia and irregularly irregular *Routine Extremities Exam Extremities: Absent edema *Routine Neurological Exam Neurological: Present alert, oriented X3 and CN II-XII intact Meds Home Medications and Allergies Home Medications ?Medication ?Instructions ?Recorded ?Confirmed ?Type cholecalciferol (vitamin D3) 125 125 mcg PO DAILY #30 tabs 11/07/24 02/01/25 Rx mcg (5,000 unit) tablet cyanocobalamin (vitamin B-12) 1,000 mcg PO DAILY #30 t abs 11/07/24 02/01/25 Rx 1,000 mcg tablet cetirizine 10 mg tablet 10 mg PO DAILY #30 tabs 09/1802/01/25 Rx metoprolol succinate 25 mg 25 mg PO DAILY #30 tabs 01/1802/01/25 Rx tablet,extended release 24 hr (Toprol XL) albuterol sulfate 90 mcg/actuation 2 puff inhalation Q 4HP PRN 02/01/25 02/01/25 History aerosol inhaler shortness of breath or wheez ing aspirin 325 mg tablet 325 mg PO DAILY 02/01/2502/18 History hydrochlorothiazide 25 mg tablet 25 mg PO DAILY 02/01/25 History levothyroxine 75 mcg tablet 75 mcg PO DAILY 02/01/25 0 02/01/25 History losartan 50 mg tablet 50 mg PO DAILY 02/01/25 08/02/18 History potassium chloride 10 mEq 10 meq PO BID 02/01/2502/01 History capsule,extended release rivaroxaban 20 mg tablet (Xarelto) 20 mg PO QPMWITHMEA L 02/01/25 02/01/25 History New Prescriptions to Start Prescriptions: Allergies Allergy/AdvReac Type Severity Reaction Status Date / Time cinnamon Allergy Intermediate facial Verified 02/01/25 15:39 swelling coconut Allergy Intermediate Facial Verified 02/01/25 15:39 swelling juan antonio Allergy Intermediate Facial Verified 02/01/25 15:39 swelling oregano Allergy Intermediate Facial Verified 02/01/25 15:39 swelling pepper (genus Capsicum) Allergy Intermediate facial Verified 02/01/25 15:39 swelling sesame seed Allergy Intermediate facial Verified 02/01/25 15:39 swelling Assessment and Plan *Assessment and plan (1) Atrial fibrillation with RVR: Status: Acute Category: Medical Code(s): I48.91 - Unspecified atrial fibrillation (2) Tachycardia-bradycardia syndrome: Status: Acute Category: Medical Code(s): I49.5 - Sick sinus syndrome (3) Melkersson-Nunu syndrome: Problem Comment: Diagnosed with skin biopsy upper lip at longer than 20 years ago Status: Chronic Category: Medical Code(s): G51.2 - Melkersson's syndrome (4) CAD (coronary artery disease): Status: Chronic Qualifiers: Associated angina: without angina Coronary Disease-Associated Artery/Lesion type: [place] artery [place] vs. transplanted heart: [place] heart Qualified Code(s): I25.10 - Atherosclerotic heart disease of [place] coronary artery without angina pectoris Category: Medical Code(s): I25.10 - Atherosclerotic heart disease of [place] coronary artery without angina pectoris (5) HTN (hypertension): Status: Chronic Qualifiers: Hypertension type: essential hypertension Qualified Code(s): I10 - Essential (primary) hypertension Category: Medical Code(s): I10 - Essential (primary) hypertension (6) HLD (hyperlipidemia): Status: Chronic Qualifiers: Hyperlipidemia type: mixed hyperlipidemia Qualified Code(s): E78.2 - Mixed hyperlipidemia Category: Medical Code(s): E78.5 - Hyperlipidemia, unspecified Plan 1. A-fib with RVR -Currently on combination of calcium channel kady and beta-kady with heart rate still 90-130s beat per minute -On Lovenox with plans to transition back to Xarelto at discharge -Echo shows EF 50% with no significant valve -History of CVA in 2022 and TIA in 2023, on aspirin therapy 2. Tachybradycardia syndrome with history of heart rates in the 30s while on low-dose bisoprolol -Recommend pacemaker implantation and reinstitution of bisoprolol post procedure 3. Hypertension, controlled -On a combination of metoprolol and diltiazem 4. Hyperlipidemia - LDL 103, 12/2024 -Discuss statin therapy 5. Hypothyroidism, on replacement therapy 6. Hypokalemia, on replacement therapy -Potassium 3.3 Dual-chamber pacemaker placement today and restart bisoprolol therapy tonight (stopping metoprolol). Possibly able to stop cardizem also. Anticipate monitoring overnight with discharged home tomorrow. I would wait to resume Xarelto tomorrow. Continue potassium replacement.
--- NOTE | 2025-02-04 11:01 | IR_ITS ---
APPROVED REPORT Patient Location: Inpatient Builder Beam: MIGUEL A Stevens RT (R) PROCEDURES 1. Pocket formation for Permanent Pacemaker Placement. 2. Placement of an atrial sensing and pacing coil into the right atrial appendage. 3. Placement of a ventricular sensing and pacing coil in the right ventricular apex. 4. Permanent Pacemaker Placement. 5. Loop Recording device removed. INDICATION Tachy John Syndrome , Ejection Fraction 50% Informed consent was obtained prior to the procedure. COMPLICATIONS NONE Estimated Blood Loss: LESS THAN 10 ML TECHNIQUE 1% Lidocaine with epinephrine used to anesthetized the left anterior aspect of the chest. Scalpel was used to make the initial cutaneous incision while electrocautery was used to dissect down into the fascia. The fascia was lifted off the pectoralis muscle and digitally manipulated creating a pocket for the pacemaker. The patient was then placed in Trendelenburg position and the subclavian vein was accessed twice via the Selinger technique, there are two wires in the vein. A 6 [place] sheath was placed under fluoroscopic guidance into the subclavian vein over one of the wires while keeping the other wire in place within the subclavian vein. The dilator was removed from the sheath. Using fluoroscopic guidance, the ventricular lead was placed into the right ventricular apex, screwed and secured into place. Electronic interrogation proved acceptable thresholds and voltage within the lead. Using 3-0 silk, the ventricular lead was then secured into place. Lead was secured to the fascia using the 3-0 silk. Following this, the sheath was pealed away. An additional 6 [place] fresh sheath and dilator was placed over the existing wire. Using fluoroscopic guidance, the atrial lead was the placed into the right atrial appendage and screwed and secured in place. Electrical interrogation demonstrated acceptable thresholds and voltage number. The atrial lead was then secured into place using 3-0 silk. 1 gram of Ancef was used to flush the pocket. Following the pacemaker generator being secured to the fascia and in place, Monocryl was used to close the subcutaneous layers while ron were used to close the cutaneous layer. A pressure dressing was placed. 1% Lidocaine with epinephrine used to anesthetized the center aspect of the chest where loop device was located, scalpel used to make incision, hemostats used to removed device. [place] used to close incision and pressure dressing applied. The patient was transferred to the postop holding area in stable condition for postoperative care. INTERROGATION Generator Model number: Dio GREENWOOD, [id number] Generator Serial number: [id number] Atrial lead model number: Tendril STS, 46cm, 2087TC Atrial lead serial number: [id number] P-wave: 1.5-2.0mV Impedance: 389 ohms Right Ventricular lead model number: Tendril STS, 52cm, 2087TC Right Ventricular lead serial number: [id number] R-wave: 10-12mV Impedance: 708 ohms Threshold: 1.0V@0.4ms Pacing Parameters: Mode: DDDR Base/Max Track: 70 ppm / 130 ppm No diaphragmatic stimulation at 10 volts. Explanted Loop serial number: [id number] IMPRESSION 1. Successful pocket formation for Permanent Pacemaker Placement. 2. Successful placement of an atrial sensing and pacing coil into the right atrial appendage. 3. Successful placement of a ventricular sensing and pacing coil in the right ventricular apex. 4. Successful permanent Pacemaker Placement. 5. Successful Loop Recording device removed. PLAN 1. Postop wound care. Electronically signed by : Jarred Soto MD 02/05/2025 10:10:56
--- NOTE | 2025-02-04 11:17 | EXP.ANES.CKL ---
[facility] Disclaimer: The information contained in this section may have been updated after the patient was seen, as this information can be updated by other users. 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 Vitamin B12 deficiency Vitamin D deficiency Insect bite Hypokalemia Tricuspid regurgitation Left knee pain Neuritis Ventricular tachycardia PSVT (paroxysmal supraventricular tachycardia) PVC (premature ventricular contraction) PAC (premature atrial contraction) Anal stenosis Hemorrhoids Acquired anal stenosis Crohn's disease Acquired hypothyroidism CVA (cerebral vascular accident) Wrist fracture SOB (shortness of breath) Bradycardia HLD (hyperlipidemia) HTN (hypertension) CAD (coronary artery disease) Surgical History History of loop recorder Hx of cataract surgery History of appendectomy History of carpal tunnel surgery History of hysterectomy History of cholecystectomy History of ankle surgery Family History Coronary artery disease Social History Smoking Status: Never smoker alcohol intake: current substance use type: denies use current occupational status: unemployed and retired Travel in the last 8 weeks?: Inside the [place] caffeine: Yes Have you lived/traveled outside US in past 30 days?: No Contact w/someone who lives/traveled outside US past 30 days?: No Exposure to someone with infectious disease in past 14 days?: No Do you have a fever (greater than 100.4 F or 38 C)?: No Have you tested positive for COVID-19?: No Exposed to someone with COVID-19 in past 14 days?: No Do you have a sore throat?: No Do you have a cough?: No Do you have any weakness?: No Do you have any diarrhea?: No Are you experiencing any unusual bleeding?: No Do you have any muscle aches/pain?: No Do you have any abdominal pain?: No Are you experiencing loss of taste or smell?: No [facility] Anesthesia Checklist Patient Identification Patient Identification: Arm Band Structural Data Admitted From: Home Planned Operative Procedure/s: Dual Chamber Pacemaker Consent for Planned Operative Procedure(s) Verified: Yes Verified Documents: Surgical Consent and History and Physical NPO Status Verified Time NPO: 00:00 Additional verifications Anesthesia Reactions: No Airway Assessment Mallampati Score:: Class II C-Spine Mobility Assessed: Yes TMJ Mobility Assessed: Yes Dentition: Good Dentition Neurological Assessment Level of Consciousness: Awake, Alert and Appropriate Anesthesia Plan Anesthesia Risk discussed: Yes Anesthesia Plan: Verified ASA Class: III Anesthesia Type: MAC
[2025-02-04] MEDS: POTASSIUM CHLORIDE 20MEQ TAB 40 MEQ PO ×2 (11:51→15:45)
[2025-02-04] MEDS: MAGNESIUM SULFATE IN WATER 2 GM/50 ML PIGGYBACK IV ×2 (11:52→14:26)
[2025-02-04] MEDS: LIDOCAINE 1% W/EPI 1:100,000 20ML VIAL 20 ML SQ (12:55)
[2025-02-04] MEDS: 0.9 % SODIUM CHLORIDE 1000ML 1,000 ML 25 ML IV (12:57)
[2025-02-04] MEDS: ACETAMINOPHEN 325MG TAB 650 MG PO ×2 (15:41→21:15)
[2025-02-04] MEDS: BISOPROLOL 5MG TABLET 2.5 MG PO (17:02)
--- NOTE | 2025-02-04 17:26 | PC.NURSE ---
PT IS RESTING IN BED. ALERT AND ORIENTED X4. EATING AND DRINKING WELL. AMBULATES TO THE BATHROOM. PT TOLERATED SITTING UP IN THE CHAIR FOR SEVERAL HOURS THIS SHIFT. LUNG SOUNDS CLEAR. ABDOMEN SOFT/NON TENDER WITH ACTIVE BOWEL SOUNDS. SURGICAL DRESSINGS TO THE CHEST C/D/I. WILL CONTINUE TO MONITOR.
[2025-02-05] VITALS: PULSE 120
[2025-02-05 04:00] VITALS: BP 111/70; PULSE 110; PULSE 115; RESP 18; TEMP 36.5; O2SAT 94; BMI 32.9
--- NOTE | 2025-02-05 06:22 | PC.NURSE ---
v/s, ox4, RA. Incision site monitored for drainage. No acute events to report. Plan of care ongoing.
[2025-02-05 06:27] LABS: Hematocrit 34.2 % (37.0-47.0); Hemoglobin 10.8 g/dL (12.2-16.2); Immature Granulocytes % 0.1 %; Mean Corpuscular HGB Conc 31.6 g/dL (31.8-35.4); Mean Corpuscular Hemoglobin 29.3 pg (27.0-31.2); Mean Corpuscular Volume 92.7 fl (81-99); Nucleated Red Blood Cells % 0 %; Platelet Count 342 K/mm3 (142-424); Red Blood Count 3.69 M/mm3 (4.20-5.40); Red Cell Distribution Width-SD 46.7 fL; White Blood Count 7.9 K/mm3 (4.8-10.8)
[2025-02-05 06:35] LABS: Albumin Level 3.6 g/dl (3.5-5.0); Chloride 101 mmol/L (98-107); Potassium 3.9 mmoL/L (3.5-5.1); Sodium 135 mmol/L (136-145)
[2025-02-05 06:38] LABS: Alanine Aminotransferase 17 U/L (12-78); Albumin/Globulin Ratio 1.3 (1.1-1.8); Alkaline Phosphatase 109 U/L (38-126); Anion Gap 11.9 mEq/L (5-15); Aspartate Amino Transferase 27 U/L (14-36); Bilirubin,Total 0.5 mg/dl (0.2-1.3); Blood Urea Nitrogen 10 mg/dl (7-17); Calcium 9.1 mg/dl (8.4-10.2); Carbon Dioxide 26 mmol/L (22.0-30.0); Creatinine Clearance Estimated 53 mL/min (50-200); Creatinine,Serum 0.80 mg/dl (0.52-1.04); Estimated Glomerular Filt Rate 69 ml/min (>60); GFR (African American) 84 ML/MIN (>60); Globulin 2.7 g/dL (1.3-3.2); Glucose 98 mg/dl (74-100); Total Protein,Serum 6.3 g/dl (6.3-8.2)
[2025-02-05] MEDS: LEVOTHYROXINE 75MCG (0.075MG) TAB 75 MCG PO (06:40)
[2025-02-05 07:44] VITALS: BP 106/69; PULSE 112; RESP 18; TEMP 36.6; O2SAT 94
[2025-02-05 08:00] VITALS: PULSE 120
--- NOTE | 2025-02-05 08:08 | EXP.CARD.PN ---
Subjective Subjective Date: 02/05/25 Time: 08:08 Principal diagnosis: A. fib with RVR, Tachybrady syndrome Interval history: 79 yo WF in bed in NAD. Pacer site dressing intact. No signs of bleeding or infection. Tele shows A. fib with variable rate (90-120 bpm) with intermittent V. pacing. Exam Data for Last 24 hours Vital signs and Labs for Last 24 Hours: Temp Pulse Resp BP Pulse Ox O2 Del Method O2 Flow Rate 97.8 F 112 H 18 106/69 L 94 L Room Air 2 02/05/25 07:44 02/05/25 07:44 02/05/25 07:44 02/05/25 07:44 02/05/25 07:44 02/05/25 07:44 02/02/25 14:48 Laboratory Results - last 24 hr 02/05/25 05:35: WBC 7.9, RBC 3.69 L, Hgb 10.8 L, Hct 34.2 L, MCV 92.7, MCH 29.3, MCHC 31.6 L, RDW 13.9, Plt Count 342, MPV 11.0 H, Neut % (Auto) 64.5, Lymph % (Auto) 23.3, [place] % (Auto) 10.4 H, Eos % (Auto) 1.4, Baso % (Auto) 0.3, Neut # (Auto) 5.1, Lymph # (Auto) 1.8, [place] # (Auto) 0.8, Eos # (Auto) 0.1, Baso # (Auto) 0.0, Sodium 135 L, Potassium 3.9, Chloride 101, Carbon Dioxide 26, Anion Gap 11.9, BUN 10, Creatinine 0.80, Estimated Creat Clear 53, Estimated GFR 69, Est GFR ( Amer) 84, Glucose 98, Calcium 9.1, Total Bilirubin 0.5, AST 27, ALT 17, Alkaline Phosphatase 109, Total Protein 6.3, Albumin 3.6, Globulin 2.7, Albumin/Globulin Ratio 1.3 I & O for Last 24 hours: Intake & Output 02/02/25 02/03/25 02/04/25 02/05/25 11:59 11:59 11:59 11:59 Intake Total 342.375 / 191.901 9797 / 1110 840 / 840 540 / 540 Output Total 0 / 0 1 / 1 0 / 0 0 / 0 Balance 342.375 / 315.805 8165 / 1109 840 / 840 540 / 540 Weight 156 lb 15.506 oz 163 lb 3.2 oz 163 lb 3.19 oz 163 lb 8 oz Constitutional Constitutional: no acute distress *Routine Respiratory Exam Respiratory: Present CTA bilaterally *Routine Cardiovascular Exam Cardiovascular: Present irregularly irregular Progress Note: A&P Assessment and plan (1) Atrial fibrillation with RVR: Status: Acute (2) HTN (hypertension): Status: Chronic (3) HLD (hyperlipidemia): Status: Chronic (4) Crohn's disease: Status: Acute (5) Acquired hypothyroidism: Status: Acute (6) CVA (cerebral vascular accident): Problem details: Per history, no focal acute symptoms Status: Resolved (7) Tachycardia-bradycardia syndrome: Status: Acute (8) Cardiac pacemaker in situ: Status: Acute Assessment and Plan Assessment and Plan for All Diagnoses:: 1. A-fib with RVR -Currently on combination of calcium channel kady and beta-kady with heart rate still 90-130s beat per minute -On Lovenox with plans to transition back to Xarelto at discharge -Echo shows EF 50% with no significant valve -History of CVA in 2022 and TIA in 2023, on aspirin therapy 2. Tachybradycardia syndrome with history of heart rates in the 30s while on low-dose bisoprolol -Dual chamber pacemaker placed 02/04/2025 -bisoprolol restarted 3. Hypertension, controlled -On a combination of bisoprolol and diltiazem 4. Hyperlipidemia -LDL 103, 12/2024 -Discuss statin therapy at follow up 5. Hypothyroidism, on replacement therapy -TSH is 1.73 6. Hypokalemia, on replacement therapy -Potassium 3.9 today Anticipate home later today. Will increase bisoprolol to 2.5 mg BID and follow BP Restart Xarelto today Home medication recommendations: Bisoprolol 2.5 mg twice daily Cardizem ER 240 mg twice daily Hydrochlorothiazide 25 mg daily Aspirin 325 mg daily Xarelto 20 mg daily Follow-up in our office in 1 week to discuss DEE/Cardioversion if not in sinus.
--- NOTE | 2025-02-05 08:27 | P.DS_ITS ---
<Statement entered by Hector Calvillo MD - 02/07/25 10:09> Personally evaluated patient and agree with the plan of care as outlined by the ELECTRICAL SUBCONTRACTOR. General Admission date:: 02/01/25 Discharge date: 02/05/25 HPI HPI HPI: 79-year-old female who reports to the ER after being called by her monitoring company for her event monitor. She was at home moving furniture when she got a phone call that stated she needed to go to the hospital for evaluation. Was found to be in A-fib with RVR. Event monitor has been in place due to intermittent A-fib and adjustment of medications where she has fluctuated between A-fib with RVR and bradycardia. Was recently on bisoprolol when her heart rate was in the 30s to 40s. Stated she felt pretty good when her heart rate was at low. Transitioned to metoprolol that she is currently on. Heart rate is still fast and irregular. Has had shortness of breath for about 2 weeks with a cough. Was diagnosed with bronchitis a week ago but shortness of breath is not any better. Concerned the symptoms may be related to her A-fib. Denies chest pain, nausea, vomiting, confusion, headache. Feels like her heart is fluttering somewhat. Is at her baseline level of function, daughter at bedside helps supplement history. Patient has history of hypothyroid, CVA, hypertension. Workup in the ER with relatively unremarkable labs. EKG showing left anterior fascicular block and A-fib with RVR. Initial troponin detectable at 0.1. TSH controlled at 1.7. Administered 5 of metoprolol with no improvement in heart rate. Administered IV diltiazem 10 mg once and cardiology was consulted. They recommended considering diltiazem drip. Medicine consulted for admission. Patient admitted to stepdown level of care due to initiation of diltiazem drip. On my evaluation however patient is asymptomatic. Denies chest pain. Alert and oriented x 4. Overall feels well on room air. Discussed initiating drip versus trialing oral diltiazem given her clinical stability. Hospital Course Hospital Course Hospital Course: Ms. Alcantar is a 79-year-old female who presented to the emergency department after her event monitor picked up A-fib with RVR. On admission she had complaints of intermittent weakness, shortness of breath, palpitations. Patient was admitted to the floor for further cardiology recommendation and medical management. Plan of care was as follows: #A-fib with RVR #Hypertension - Strong suspicion for tachybradycardia syndrome. Patient had BiV pacemaker placed yesterday. She is doing well today, complaints of slight soreness left upper chest, dressing remains clean dry and intact. Denies chest pain, shortnes s of breath. Heart rhythm still in A-fib, per cardiology will follow-up in 1 week to evaluate for DEE/cardioversion. - Patient will be started on bisoprolol 2.5 mg twice daily and diltiazem 240 mg twice daily for rhythm and rate control. Patient also started on Xarelto 20 mg at bedtime due to persistent A-fib. Discontinuing losartan 25 mg daily. Patient will continue home medication of HCTZ 25 mg daily and aspirin 325 mg daily per cardiology's recommendation. - Patient lab work stable, hemoglobin 10.8, no leukocytosis, sodium 135, potassium 3.9. Kidney function within normal limits, creatinine 0.8. - Patient had repeat echocardiogram, EF 50%, normal RV function, biatrial dilation, mild MR. #Hyperlipidemia ?Patient LDL 103, per cardiology will discuss starting statin therapy at follow- up appointment. #Hypothyroid - TSH controlled at 1.7. Continue levothyroxine 75 mcg daily. Total time spent on discharge 32 minutes in counseling, documentation, chart review, and direct care with patient. Exam Data for Last 24 hours Vital signs and Labs for Last 24 Hours: Temp Pulse Resp BP Pulse Ox O2 Del Method O2 Flow Rate 97.8 F 112 H 18 106/69 L 94 L Room Air 2 02/05/25 07:44 02/05/25 07:44 02/05/25 07:44 02/05/25 07:44 02/05/25 07:44 02/05/25 07:44 02/02/25 14:48 Laboratory Results - last 24 hr 02/05/25 05:35: WBC 7.9, RBC 3.69 L, Hgb 10.8 L, Hct 34.2 L, MCV 92.7, MCH 29.3, MCHC 31.6 L, RDW 13.9, Plt Count 342, MPV 11.0 H, Neut % (Auto) 64.5, Lymph % (Auto) 23.3, [place] % (Auto) 10.4 H, Eos % (Auto) 1.4, Baso % (Auto) 0.3, Neut # (Auto) 5.1, Lymph # (Auto) 1.8, [place] # (Auto) 0.8, Eos # (Auto) 0.1, Baso # (Auto) 0.0, Sodium 135 L, Potassium 3.9, Chloride 101, Carbon Dioxide 26, Anion Gap 11.9, BUN 10, Creatinine 0.80, Estimated Creat Clear 53, Estimated GFR 69, Est GFR ( Amer) 84, Glucose 98, Calcium 9.1, Total Bilirubin 0.5, AST 27, ALT 17, Alkaline Phosphatase 109, Total Protein 6.3, Albumin 3.6, Globulin 2.7, Albumin/Globulin Ratio 1.3 I & O for Last 24 hours: Intake & Output 02/02/25 02/03/25 02/04/25 02/05/25 23:59 23:59 23:59 23:59 Intake Total 843.575 / 967.570 5071 / 1440 340 / 540 200 / 200 Output Total 1 / 1 0 / 0 0 / 0 0 / 0 Balance 842.575 / 428.944 1283 / 1440 340 / 540 200 / 200 Weight 71.2 kg 74.026 kg 74.026 kg 74.162 kg Constitutional Constitutional: no acute distress, obese and cooperative *Routine HEENT Exam Head: Present normocephalic Eye: Present EOMI and PERRL ENT: Present mucous membranes moist *Routine Neck Exam Neck: Present supple; Absent JVD Routine Chest/Breast/Axilla Exam Chest wall: Present pacemaker (Placed 02/04/2025) *Routine Respiratory Exam Respiratory: Present CTA bilaterally, normal respiratory effort, able to speak in complete sentences and symmetric chest movement; Absent wheezes or crackles *Routine Cardiovascular Exam Cardiovascular: Present tachycardia and irregular rhythm; Absent murmur *Routine Abdominal Exam Abdominal: Present soft and normoactive bowel sounds; Absent tenderness or distended *Routine Extremities Exam Extremities: Present full ROM and normal capillary refill; Absent edema *Routine Skin Exam Skin: Present intact and dry; Absent rash Comments: Pacemaker dressing upper left chest, clean dry and intact *Routine Neurological Exam Neurological: Present alert and oriented X3 Results Data Completed and Pending Labs on day of discharge: Labs from last 24 hours 02/05/25 05:35 WBC 7.9 RBC 3.69 L Hgb 10.8 L Hct 34.2 L MCV 92.7 MCH 29.3 MCHC 31.6 L RDW 13.9 Plt Count 342 MPV 11.0 H Neut % (Auto) 64.5 Lymph % (Auto) 23.3 [place] % (Auto) 10.4 H Eos % (Auto) 1.4 Baso % (Auto) 0.3 Neut # (Auto) 5.1 Lymph # (Auto) 1.8 [place] # (Auto) 0.8 Eos # (Auto) 0.1 Baso # (Auto) 0.0 Sodium 135 L Potassium 3.9 Chloride 101 Carbon Dioxide 26 Anion Gap 11.9 BUN 10 Creatinine 0.80 Estimated Creat Clear 53 Estimated GFR 69 Est GFR ( Amer) 84 Glucose 98 Calcium 9.1 Total Bilirubin 0.5 AST 27 ALT 17 Alkaline Phosphatase 109 Total Protein 6.3 Albumin 3.6 Globulin 2.7 Albumin/Globulin Ratio 1.3 DS: Diagnosis Discharge Diagnosis (1) Atrial fibrillation with RVR: Status: Acute Code(s): I48.91 - Unspecified atrial fibrillation (2) HTN (hypertension): Status: Chronic Code(s): I10 - Essential (primary) hypertension Qualifiers: Hypertension type: essential hypertension Qualified Code(s): I10 - Essential (primary) hypertension (3) HLD (hyperlipidemia): Status: Chronic Code(s): E78.5 - Hyperlipidemia, unspecified Qualifiers: Hyperlipidemia type: mixed hyperlipidemia Qualified Code(s): E78.2 - Mixed hyperlipidemia (4) Crohn's disease: Status: Acute Code(s): K50.90 - Crohn's disease, unspecified, without complications (5) Acquired hypothyroidism: Status: Acute Code(s): E03.9 - Hypothyroidism, unspecified (6) CVA (cerebral vascular accident): Status: Resolved Code(s): I63.9 - Cerebral infarction, unspecified Problem details: Per history, no focal acute symptoms (7) Tachycardia-bradycardia syndrome: Status: Acute Code(s): I49.5 - Sick sinus syndrome (8) Cardiac pacemaker in situ: Status: Acute Code(s): Z95.0 - Presence of cardiac pacemaker Meds Home Medications and Allergies Home Medications ?Medication ?Instructions ?Recorded ?Confirmed ?Type cholecalciferol (vitamin D3) 125 125 mcg PO DAILY #30 tabs 11/07/24 02/01/25 Rx mcg (5,000 unit) tablet cyanocobalamin (vitamin B-12) 1,000 mcg PO DAILY #30 t abs 11/07/24 02/01/25 Rx 1,000 mcg tablet cetirizine 10 mg tablet 10 mg PO DAILY #30 tabs 09/1802/01/25 Rx albuterol sulfate 90 mcg/actuation 2 puff inhalation Q 4HP PRN 02/01/25 02/01/25 History aerosol inhaler shortness of breath or wheez ing aspirin 325 mg tablet 325 mg PO DAILY 02/01/2502/18 History hydrochlorothiazide 25 mg tablet 25 mg PO DAILY 02/01/25 History levothyroxine 75 mcg tablet 75 mcg PO DAILY 02/01/25 0 02/01/25 History potassium chloride 10 mEq 10 meq PO BID 02/01/2502/01 History capsule,extended release bisoprolol fumarate 5 mg tablet 2.5 mg (1/2 x 5 mg) PO BID 30 days 02/05/25 Rx #30 tabs diltiazem HCl 240 mg 240 mg PO BID 30 days #60 ca ps 02/05/25 Rx capsule,extended release 24 hr rivaroxaban 20 mg tablet (Xarelto) 20 mg PO HS #90 tab s 02/05/25 Rx New Prescriptions to Start Prescriptions: bisoprolol fumarate Lea Baugh diltiazem HCl Lea Baugh rivaroxaban [Xarelto] Lea Baugh Allergies Allergy/AdvReac Type Severity Reaction Status Date / Time cinnamon Allergy Intermediate facial Verified 02/01/25 15:39 swelling coconut Allergy Intermediate Facial Verified 02/01/25 15:39 swelling juan antonio Allergy Intermediate Facial Verified 02/01/25 15:39 swelling oregano Allergy Intermediate Facial Verified 02/01/25 15:39 swelling pepper (genus Capsicum) Allergy Intermediate facial Verified 02/01/25 15:39 swelling sesame seed Allergy Intermediate facial Verified 02/01/25 15:39 swelling Discharge Plan Disposition Patient Disposition: Home, Self-Care Condition: Fair Discharge Order Discharge Orders: Discharge Order (Routine); Ordered 02/05/25 Ordered By: Lea Baugh Follow up Plan Follow up with: Richmond Baugh PA [Physician Urgent Care Physician, Cardiology] - 02/13/25 9:45 am Referral Note: in 1 week Jason CASTANEDA MD [Primary Care Provider, Family Practice] - Enter time for follow up Prescriptions/Medication Reconciliation: New diltiazem HCl 240 mg Capsule,Extended Release 24hr 240 mg PO BID 30 Days Qty: 60 0RF bisoprolol fumarate 5 mg Tablet 2.5 mg PO BID 30 Days Qty: 30 0RF Xarelto 20 mg tablet 20 mg PO HS Qty: 90 0RF Continued cetirizine 10 mg tablet 10 mg PO DAILY Qty: 30 5RF cyanocobalamin (vitamin B-12) 1,000 mcg tablet 1,000 mcg PO DAILY Qty: 30 5RF cholecalciferol (vitamin D3) 125 mcg (5,000 unit) tablet 125 mcg PO DAILY Qty: 30 5RF potassium chloride 10 mEq capsule, extended release 10 meq PO BID aspirin 325 mg tablet 325 mg PO DAILY levothyroxine 75 mcg tablet 75 mcg PO DAILY hydrochlorothiazide 25 mg tablet 25 mg PO DAILY albuterol sulfate 90 mcg/actuation HFA aerosol inhaler 2 puff inhalation Q4HP PRN (Reason: shortness of breath or wheezing) Discontinued metoprolol succinate [Toprol XL] 25 mg tablet extended release 24 hr 25 mg PO DAILY Qty: 30 2RF losartan 50 mg tablet 50 mg PO DAILY Xarelto 20 mg tablet 20 mg PO QPMWITHMEAL Patient Comments: patient states that she has not picked up or started new med Rx Instructions: must administer with evening meal Problem Reconciliation Problems Reviewed?: Yes Patient Discharge Instructions ACTIVITY: Ambulate as tolerated and No heavy lifting DIET: continue same diet Patient Instructions: DI for Pacemaker Insertion, DI for Atrial Fibrillation, DI for Surgical Site Infection Print Language: Czech Providers Primary Care Provider: Jason CASTANEDA Admit Provider: Marcos Rangel Attending Provider: Marcos Rangel
[2025-02-05 08:45] VITALS: PULSE 112; O2SAT 94
[2025-02-05] MEDS: ASPIRIN 325MG TABLET 325 MG PO (09:33)
[2025-02-05] MEDS: dilTIAZem ER 240MG CAPSULE 240 MG PO (09:34)
[2025-02-05] MEDS: BISOPROLOL 5MG TABLET 2.5 MG PO (09:34)
[2025-02-05] MEDS: POLYETHYLENE GLYCOL 3350 17 GM PACKET PO (11:34)
[2025-02-05] MEDS: SENNOSIDES 8.6MG/DOCUSATE 50MG TABLET 1 TAB PO (11:34)
--- NOTE | 2025-02-06 10:11 | SW/DCPLANNER ---
Spoke with patient on the phone. Patient stated that she is doing good just a little sore. Patient stated that she is aware of her upcoming appointments. Patient stated that she was able to get her new medicine picked up from [facility] pharmacy. Patient stated that she has no concerns or questions at this time. Merritt Ye
--- NOTE | 2025-02-07 15:19 | SUR.PHASEII ---
02/07/25 Follow up call made, patient states she feels fine, no issues. Follow up appt on tuesday.
== END 2025-02-05 13:08 | disposition home or self-care (01) | DRG 243 ==
LOC: ER 12:33 → ICU 14:39 → 2ND 02-02 16:20
PROVIDERS: Internal Medicine; Nurse Practitioner Family; Physician Assistant; Admitting Provider Internal Medicine Adolescent Medicine; Emergency Provider Student in an Organized Health Care Education/Training Program; PCP Family Medicine; Visit Provider Internal Medicine Adolescent Medicine
PROC: 0JH606Z Insertion of Pacemaker, Dual Chamber into Chest Subcutaneous Tissue and Fascia, Open Approach (ICD-10-PCS; CPT 33208; principal; 2025-02-04 14:00)
DX: I48.19 Other persistent atrial fibrillation (principal); K50.90 Crohn's disease, unspecified, without complications; I10 Essential (primary) hypertension; E03.9 Hypothyroidism, unspecified; I49.5 Sick sinus syndrome; E66.9 Obesity, unspecified; I44.4 Left anterior fascicular block; I25.10 Atherosclerotic heart disease of native coronary artery without angina pectoris; G51.2 Melkersson's syndrome; E78.2 Mixed hyperlipidemia; E87.6 Hypokalemia; Z95.818 Presence of other cardiac implants and grafts; Z86.73 Personal history of transient ischemic attack (TIA), and cerebral infarction without residual deficits; Z79.01 Long term (current) use of anticoagulants; Z79.890 Hormone replacement therapy; Z79.82 Long term (current) use of aspirin; Z79.899 Other long term (current) drug therapy; Z91.02 Food additives allergy status; Z68.33 Body mass index [BMI] 33.0-33.9, adult
CPT/HCPCS: 36415; 71045; 80053; 83735; 84436; 84443; 84479; 84484; 85025; 93005; 93306; C1785; C1898; J1650; J1938; J2004; J2250; J2704; J3010; J3475; J7030

== ENCOUNTER → 2025-04-28 20:10 | Outpatient (CLI) | payer MEDICARE, SELFPAY ==
--- OUTSIDE RECORDS SUMMARY | 2017-12-29 09:50 | XMS_ITS | Continuity of Care Document ---
Author Organization [facility] Address [address] [place] [address] Phone Care Team Providers Care Machine Hoop Maker Name Role Phone Vianca NATHAN, Raymond Unavailable Unavailable Medications Medication Instructions Dosage Effective Dates (start - stop) Status Comments Remicade 100 mg intravenous solution infuse (5MG/KG) by intravenous route every 8 weeks over no less than 5 MG/KG - Active Lialda 1.2 gram tablet,delayed release take 2 tablet by oral route every day with a meal 2.4 G - Active Tirosint 112 mcg capsule take 1 capsule by oral route every day 112 MCG - Active levocetirizine 5 mg tablet take 1 tablet by oral route every day in the evening 5 MG - Active Flovent Diskus 50 mcg/actuation powder for inhalation inhale 1 puff by inhalation route 2 times every day - Active triamcinolone (bulk) powder - Active losartan 50 mg tablet take 1 tablet by oral route every day 50 MG - Active atorvastatin 10 mg tablet take 1 tablet by oral route every day 10 MG - Active diltiazem 120 mg tablet take 1 tablet by oral route 3 times every day 120 MG - Active hydrochlorothiazide 25 mg tablet take 1 tablet by oral route every day 25 MG - Active Aspir-81 81 mg tablet,delayed release take 1 tablet by oral route 2 times every day 81 MG - Active Advance Directives Directive Yes / No Effective Date File Name No Information Encounters Encounter Description Practice Location Reason(s) For Visit Diagnoses Date Provider Providers Copied on Encounter [facility] [place], [facility] E [facility], [place], [address], tel:[phone] [facility] knee (chief complaint) No Information 8 Vianca Andrade. [address], [address], [place], [place], [id number], [place]. tel:[phone] Family History Family Member Type Diagnosis Age At Onset No Information Payers Payer name Insurance type Covered libertarian ID Stefan lowe(s) UHC Medicare - [id number] Social History Type Description Quantity Date Captured Comments Alcohol Use Details Unknown Caffeine Use Details Unknown Tobacco Use Status Smoking Status Former smoker Non-Smoking Tobacco Use Details : No Details Available : No Details Available Sex Female Vital Signs Date / Time: Height Weight BMI Pulse Rate Blood Pressure Temperature Respiratory Rate Body Surface Area Head Circumference Head Circ. Percentile Wt./Lyle. Percentile BMI percentile Pulse Ox Inhaled Ox 2:59 PM 61.00 in 88.904 kg (196.00 lbs) 37.0 3 kg/m eter (2) Chief Complaint And Reason For Visit From encounter dated '12/29/2017 14:50'. knee (chief complaint). Description: Location: left knee. Reason For Referral Reason For Referral No Information History Of Present Illness Encounter Date Complaint History Of Prese nt Illness knee Location: left k nee. Functional Status Date Functional Assessmen t No Information Instructions Date Instruction Additional Infor mation No Information Assessments Type Assessment Date No Information Patient Care Teams Name Effective Dates (start - stop) Status Members No Information
--- OUTSIDE RECORDS SUMMARY | 2025-03-04 10:30 | XMS_ITS | Encounter Summary ---
Author Organization [facility] Address [address] [place] [address] Care Team Providers Care Qc Lab Technician Name Role Phone Ricky Denney MD Primary Care Provider [phone] Encounter Details Date Type Department Care Team (Late st Contact Info) Description 03/04/2025 11:30 AM EDT Outside Facility Service [facility] GASTROENTEROLOGY [address] [facility] [address] [place] [address] Marcos Potts MD [address] [facility] [address] [place], [place] [id number] Social History Tobacco Use Types Packs/Day Years [...] Care Team (Late st Contact Info) Description 06/05/2025 1:00 PM EST Appointment [facility] OUTPATIENT ONCOLOGY [address] [place] [address] documented as of this encounter Procedures Procedure Name Priority Date/Time Associated Diagnosis Comments SCANNED - COLONOSCOPY 03/04/2025 documented in this encounter Results * Colonoscopy, Scan (03/04/2025) us Marcos Potts MD CHART REVIEW TABS Herlinda dodd Result documented in this encounter Visit Diagnoses Not on filedocumented in this encounter Care Teams Qc Lab Technician Relationship Specialty Start Date End Date Ricky Denney MD [address] [place] [address] PCP - General Colon and Rectal Surgery 02/13/16 documented as of this encounter
--- OUTSIDE RECORDS SUMMARY | 2025-04-10 10:52 | XMS_ITS | Encounter Summary ---
Author Organization [facility] Address [address] [id number] Care Team Providers Care Digester Operator Name Role Phone Ricky Denney MD Primary Care Provider [phone] Reason for Visit * Episode Based Medications (Routine) - Authorized Specialty Diagnoses / Procedures Referred By Contac t Referred To Contact Diagnoses Crohn's disease without complication, unspecified gastrointestinal tract location Procedures PA INFLIXIMAB NOT BIOSIMIL 10MG Dick Brown, PharmD [address] [place] [address] Phone: tel: Dick Brown, PharmD [address] [place] [address] Phone: tel: Referral ID Status Reason Start Date Expiration Date V isits Requested Visits Authorized [id number] Authorized 11/20/2024 11/20/2025 1 1 Encounter Details Date Type Department Care Team (Latest Contact Info) Description 04/10/2025 11:52 AM EDT - 04/10/2025 11:59 PM EDT Hospital Encounter [facility] OUTPATIENT ONCOLOGY [address] [place] [id number] Ricky Denney MD [address] [facility] [place] [address] Crohn's disease without complication, unspecified gastrointestinal tract location (Primary Dx) Discharge Disposition: Home or Self Care Social History Tobacco Use Types Packs/Day Years [...] Sign Reading Time Taken Comments Blood Pressure 118/60 04/10/2025 3:22 PM EDT Pulse 59 04/10/2025 3:22 PM EDT Temperature 36.8 C (98.2 F) 04/10/2025 12:37 PM EDT Respiratory Rate 16 04/10/2025 12:37 PM EDT Oxygen Saturation - - Inhaled Oxygen Concentration - - Weight 68.5 kg (151 lb) 04/10/2025 12:37 PM EDT Height 149.9 cm (4' 11 ) 04/10/2025 12:37 PM EDT Body Mass Index 30.5 04/10/2025 12:37 PM EDT documented in this encounter Medications at Time of Discharge potassium chloride (MICRO-K) 10 MEQ CR capsule Take 1 capsule by mouth Every 12 (Twelve) Hours. 07/05/2024 aspirin 325 MG tablet Take 1 tablet by mouth Daily. 10/11/2022 atorvastatin (LIPITOR) 10 MG tablet Take 1 tablet by mouth Daily. bisoprolol (ZEBeta) 5 MG tablet Take 1 tablet by mouth Daily. 1/2 TAB/DAY docusate sodium (COLACE) 100 MG capsule Take 1 capsule by mouth 2 (Two) Times a Day. fluticasone (VERAMYST) 27.5 MCG/SPRAY nasal spray 2 sprays into the nostril(s) as directed by provider Daily. hydrochlorothiaz clinton (HYDRODIURIL) 25 MG tablet Take 1 tablet by mouth Daily. inFLIXimab (REMICADE IV) Infuse into a venous catheter. levothyroxine (SYNTHROID, LEVOTHROID) 112 MCG tablet Take 75 mcg by mouth Every Morning. losartan (COZAAR) 50 MG tablet Take 1 tablet by mouth Daily. Natural Vitamin D-3 125 MCG (5000 UT) tablet 12/11/2024 polyethylene glycol (GoLYTELY) 236 g solution Take 1st dose at 5pm. Take 2nd dose at 10pm. Nothing to eat/drink after midnight. Follow prep instructions provided by office. Questions call 4000 mL 03/01/2025 Restasis 0.05 % ophthalmic emulsion 04/07/2021 vitamin B-12 (CYANOCOBALAMIN) 1000 MCG tablet Take 1 tablet by mouth Daily. 11/07/2024 documented as of this encounter Plan of Treatment Upcoming Encounters Date Type Department Care Team (Late st Contact Info) Description 06/05/2025 1:00 PM EST Appointment [facility] OUTPATIENT ONCOLOGY [address] [place] [address] documented as of this encounter Visit Diagnoses Diagnosis Crohn's disease without complication, unspecified gastrointestinal tract location- Primary documented in this encounter Administered Medications Inactive Administered Medications - up to 3 most recent administrations Medication Order MAR Action Action Date Dose Rate Site acetaminophen (TYLENOL) tablet 1,000 mg 1,000 mg, Oral, Once, On Tue04/10/25 at 1243, For 1 dose, Based on patient request [...] without complication, unspecified gastrointestinal tract location Given 04/10/2025 12:48 PM EDT 1,000 mg cetirizine (zyrTEC) tablet 10 mg 10 mg, Oral, Once, On Tue04/10/25 at 1243, For 1 dose, Sub for loratadine;Indications:Crohn's disease without complication, unspecified gastrointestinal tract location Given 04/10/2025 12:48 PM EDT 10 mg inFLIXimab (REMICADE) 700 mg in sodium chloride 0.9 % 250 mL IVPB 700 mg, Intravenous, Administer over 120 Minutes, Once, On Tue04/10/25 at 1313, For 1 dose, Use an in-line, sterile, non-pyrogenic, low protein-binding filter with 1.2 micron or smaller pore size. Biosimilar Use Indication: defaulted medication has been selected as insurance preferred product. Caution: Look alike/sound alike drug alert . Infuse with an in-line low protein binding filter (<1.2 micron)Indications:Crohn's disease without complication, unspecified gastrointestinal tract location New Bag 04/10/2025 1:22 PM EDT 700 mg 125 mL/hr sodium chloride 0.9 % infusion 20 mL/hr, Intravenous, Once, On Tue04/10/25 at 1243, For 1 doseIndications:Crohn's disease without complication, unspecified gastrointestinal tract location New Bag 04/10/2025 12:48 PM EDT 20 mL/hr 20 mL/hr documented in this encounter Care Teams Digester Operator Relationship Specialty Start Date End Date JumanaRicky cherry MD [address] [place] [address] PCP - General Colon and Rectal Surgery 02/13/16 documented as of this encounter
--- OUTSIDE RECORDS SUMMARY | 2025-04-28 20:14 | XMS_ITS | Clinical Summary ---
Author Organization [facility] Address [address] [place] [address] Care Team Providers Care Medical Claims Examiner Name Role Phone Hector Gomez MD Primary Care Provider [phone] Source Comments This information has been disclosed [...] therelease of HIV test results or diagnoses. PGE1121.243[facility] Allergies Active Allergy Reactions Criticality Noted Date Comments Egg Derived 12/02/2013 Medications [id number] in-folic acid (CENTRUM) 3,500-18-0.4 unit-mg-mg Chew Chew [...] Advance Directives For more information, please contact: [phone] * Full Code (Latest Code Status on File) Date Activated Date Inactivated Comments 07/05/2022 8:45 PM 07/07/2022 10:06 PM Care Teams Medical Claims Examiner Relationship Specialty Start Date End Date Hector Gomez MD [address] [facility] [address] [place] [id number] PCP - General Family Medicine 07/06/22
--- OUTSIDE RECORDS SUMMARY | 2025-04-28 20:14 | XMS_ITS | Clinical Summary ---
Author Organization [employer] [facility] Address [address] [place] [address] Phone Care Team Providers Care Fish Peddler Name Role Phone Unavailable Unavailable Conditions or Problems No information available. Medications No information available. Medications Administered No information available. Allergies, Adverse Reactions, Alerts No information available. Results No information available. Plan of Care No information available. Procedures No information available. Vital Signs No information available. Immunizations No information available. Advance Directives No information available.
--- OUTSIDE RECORDS SUMMARY | 2025-04-28 20:14 | XMS_ITS | Encounter Summary ---
Author Organization [facility] Address [address] [id number] Care Team Providers Care Tennis Director Name Role Phone Ricky Denney MD Primary Care Provider [phone] Reason for Visit * Reason Onset Date Comments Med Refill 03/01/2025 Encounter Details Date Type Department Care Team (Late st Contact Info) Description 03/01/2025 Refill [facility] GA[facility]Y [address] [facility] [address] [place] [address] Marcos Potts MD [address] [facility] [address] [place], [place] [id number] Social History Tobacco Use Types Packs/Day Years [...] Info) Description 06/05/2025 1:00 PM EST Appointment [facility] OUTPATIENT ONCOLOGY [address] [place] [address] documented as of this encounter Visit Diagnoses Not on filedocumented in this encounter Care Teams Tennis Director Relationship Specialty Start Date End Date Ricky Denney MD [address] [place] [address] PCP - General Colon and Rectal Surgery 02/13/16 documented as of this encounter
--- OUTSIDE RECORDS SUMMARY | 2025-04-28 20:14 | XMS_ITS | Encounter Summary ---
Author Organization [facility] Address [address] [place] [address] Care Team Providers Care Cert Pharmacy Tech Name Role Phone Ricky Denney MD Primary Care Provider [phone] Encounter Details Date Type Department Care Team (Latest Contact Info) Description 04/10/2025 Travel Social History Tobacco Use Types Packs/Day [...] Info) Description 06/05/2025 1:00 PM EST Appointment [facility] OUTPATIENT ONCOLOGY [address] [place] [phone] documented as of this encounter Visit Diagnoses Not on filedocumented in this encounter Care Teams Cert Pharmacy Tech Relationship Specialty Start Date End Date Ricky Denney MD [address] [place] [address] PCP - General Colon and Rectal Surgery 02/13/16 documented as of this encounter
--- OUTSIDE RECORDS SUMMARY | 2025-04-28 20:15 | XMS_ITS | Clinical Summary ---
Author Organization [facility] Address [address] [place] [address] Care Team Providers Care Document Control Clerk Name Role Phone Ricky Denney MD Primary Care Provider [phone] Allergies No known active allergies Medications levothyroxine [...] catheter. Active Restasis 0.05 % ophthalmic emulsion 1 Active aspirin 325 MG tablet Take 1 tablet by mouth Daily. 3 Active docusate sodium (COLACE) 100 MG capsule Take 1 capsule by mouth 2 (Two) Times a Day. Active bisoprolol (ZEBeta) 5 MG tablet Take 1 tablet by mouth Daily. 1/2 TAB/DAY Active potassium chloride (MICRO-K) 10 MEQ CR capsule Take 1 capsule by mouth Every 12 (Twelve) Hours. 5 Active Natural Vitamin D-3 125 MCG (5000 UT) tablet 5 Active vitamin B-12 (CYANOCOBALAMIN ) 1000 MCG tablet Take 1 tablet by mouth Daily. 5 Active polyethylene glycol (GoLYTELY) 236 g solution Take 1st dose at 5pm. Take 2nd dose at 10pm. Nothing to eat/drink after midnight. Follow prep instructions provided by office. 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 Encounters Date Type Department Care Team Description 04/10/2025 11:52 AM EDT - 04/10/2025 11:59 PM EDT Hospital Encounter [facility] [address] [id number] Ricky Denney MD Crohn's disease without complication, unspecified gastrointestinal tract location (Primary Dx) Discharge Disposition: Home or Self Care 04/10/2025 Travel 03/04/2025 11:30 AM EDT Outside Facility Service [facility] [address] [address] Marcos Potts MD 03/01/2025 Refill [facility] [address] [address] Marcos Potts MD 03/01/2025 Telephone [facility] [address] [address] Marcos Potts MD 02/18/2025 Refill [facility] [address] [address] Marcos Potts MD 02/13/2025 11:36 AM EDT - 02/13/2025 11:59 PM EDT Hospital Encounter [facility] [address] [facility] [place] [address] Ricky Denney MD Crohn's disease without complication, unspecified gastrointestinal tract location (Primary Dx) Discharge Disposition: Home or Self Care 02/13/2025 Travel 01/29/2025 3:30 PM EDT Office Visit [facility] [address] [facility] [address] [place] [address] Marcos Potts MD Immunosuppression due to drug therapy (Primary Dx); Crohn's disease of large intestine without complication; Constipation, unspecified constipation type 01/29/2025 Travel from Last 3 Months Social History [...] 16 04/10/2025 12:37 PM EDT Oxygen Saturation 98% 04/05/2023 1:49 PM EDT Inhaled Oxygen Concentration - - Weight 68.5 kg (151 lb) 04/10/2025 12:37 PM EDT Height 149.9 cm (4' 11 ) 04/10/2025 12:37 PM EDT Body Mass Index 30.5 04/10/2025 12:37 PM EDT Plan of Treatment Upcoming Encounters Date Type Department Care Team (Late st Contact Info) Description 06/05/2025 1:00 PM EST Appointment [facility] [address] [place] [address] Health Maintenance Due Date Last Done Comments DXA SCAN 1945 ZOSTER VACCINE (1 of 2) 1963 COLOGUARD 1989 COLON CANCER SCREENING 5 YEA R SIGMOIDOSCOPY 1989 CT COLONOGRAPHY 1989 FECAL OCCULT BLOOD TEST 1989 FIT Testing (1 year) 1989 ANNUAL WELLNESS VISIT 09/24/2016 RSV Vaccine - Adults (1 - 1- dose 75+ series) 2019 Pneumococcal Vaccine 50+ (2 of 2 - PPSV23, PCV20, or PCV21) 06/12/2021 04/17/2021 COVID-19 Vaccine (3 - Modern a risk series) 07/28/2021 06/30/2021, 09/15/2020, 08/18/2020 INFLUENZA VACCINE 01/25/2025 04/13/2022, , 08/29/2019, Additional history exists COLONOSCOPY 03/04/2027 03/04/2025, 04/0 08/2022, 07/22/2020 COLORECTAL CANCER SCREENING 03/04/2027 TDAP/TD VACCINES (2 - Td or Tdap) 07/04/2027 018 Procedures Procedure Name Priority Date/Time Associated Diagnosis Comments SCANNED - COLONOSCOPY 03/04/2025 from Last 3 Months Results * Colonoscopy, Scan (03/04/2025) Marcos Potts MD CHART REVIEW TABS Herlinda dodd Result from Last 3 Months Insurance [employer] PPO Care Teams Document Control Clerk Relationship Specialty Start Date End Date Ricky Denney MD [address] [facility] [place] [address] PCP - General Colon and Rectal Surgery 02/13/16
--- OUTSIDE RECORDS SUMMARY | 2025-04-28 20:15 | XMS_ITS | Clinical Summary ---
Author Organization 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 Active INFLIXIMAB (REMICADE IV) Inject into the vein. Every 8 weeks Active polyethylene glycol (GLYCOLAX, MIRALAX) 17 gram packet Take 17 g by mouth daily. Active loratadine (CLARITIN) 10 mg tablet Take 10 mg by mouth daily. As needed Active fluticasone (FLONASE) 50 mcg/actuation Nasl [place], Suspension 1 [address] by Nasal route daily. Active mesalamine (LIALDA) [...] (04/20/2017): Added automatically from request for surgery [id number] Secondary cataract, left eye 01/18/2012 01/18/2012 Surgical History Surgery Date Site/Laterality Comments HYSTERECTOMY CHOLECYSTECTOMY FOOT SURGERY left HAND SURGERY carpal tunnel EYE SURGERY Left cataract with IOL EYE SURGERY 01/18/2012 Eye/Left YAG LASER POSTERIOR CAPSULOTOMY LEFT EYE ; Surgeon: Paul Aiken MD; Location: [facility] OR; Service: Ophthalmology CATARACT REMOVAL CARDIAC CATHETERIZATION CATARACT REMOVAL 05/03/2017 Right Right eye CATARACT EXTRACTION WITH PHACOEMULSIFICATION AND INTRAOCULAR LENS; Surgeon: Ricky Montiel MD; Location: [facility]; Service: Ophthalmology Medical devices from this [...] AM EST Office Visit [facility] [address] [place] [address] Sergio Wang MD [address] [place] [address] Health Maintenance Due Date Last Done Comments [...] this topic Medical Devices Implanted Type Area Farm Management Agent Device Identifier Shelf Expiration Date Model / Serial / Lot Lens Intraocular Preloaded 20.0 Diopter - [id number] Implanted:Qty: 1 on 05/03/2017 by Ricky Montiel MD at [facility] Right: Eye [facility]:SURG 09/25/2019 [id number] / [id number] / Insurance MEDICARE PPO MR Member Subscriber Plan / Payer (Ef fective 2015-Present) Name:Pippa Alcantar Relation to Subscriber:Self Name:Pippa Alcantar Payer ID:[id number] (NAIC) Type:Not on file Address: [address] [id number] MEDICARE PPO MR MEDICARE PPO MR Care Teams Help Desk Coordinator Relationship Specialty Start Date End Date Hector Gomez MD [facility] [address] [facility] [place] [address] PCP - General Family Medicine 01/28/17
--- OUTSIDE RECORDS SUMMARY | 2025-04-28 20:15 | XMS_ITS | Encounter Summary ---
Author Organization Healthcare Address [address] [id number] Care Team Providers Care Trailer Assembler Name Role Phone Hector Gomez MD Primary Care Provider [phone] Encounter Details Date Type Department Care Team (Late st Contact Info) Description 11/12/2019 Abstract [facility] [address] [place] [address] Dental, Provider, DDS [facility] [place] [id number] Social History Tobacco Use Types Packs/Day Years [...] Description 07/04/2025 11:00 AM EST Office Visit [facility] Adult Dentistry [address] [place] [address] Amos Gabby Pina documented as of this encounter Visit Diagnoses Not on filedocumented in this encounter Care Teams Trailer Assembler Relationship Specialty Start Date End Date Hector Gomez MD [address] [place], [place] [address] PCP - General 11/07/20 documented as of this encounter
--- OUTSIDE RECORDS SUMMARY | 2025-04-28 20:15 | XMS_ITS | Encounter Summary ---
Author Organization [facility] Address [address] [place] [id number] Care Team Providers Care Food Clerk Name Role Phone Ricky Denney MD Primary Care Provider [phone] Encounter Details Date Type Department Care Team (Late st Contact Info) Description 03/01/2025 Telephone [facility] [address] [facility] [address] [place] [phone] Marcos Potts MD [address] [facility] [address] [place] [address] Social History Tobacco Use Types Packs/Day Years [...] on file documented as of this encounter Miscellaneous Notes * Telephone Encounter - Dinorah Roberts RegSched Rep - 03/01/2025 8:16 AM EDT PATIENT IS REQUESTED GOLYTELY. PLEASE SEND TO PHARMACY ON FILE. documented in this encounter Plan of Treatment Upcoming Encounters Date Type Department Care Team (Late st Contact Info) Description 06/05/2025 1:00 PM EST Appointment [facility] OUT[facility]IENT [facility] [address] [facility] [place] [address] documented as of this encounter Visit Diagnoses Not on filedocumented in this encounter Care Teams Food Clerk Relationship Specialty Start Date End Date Ricky Denney MD [address] [place] [address] PCP - General Colon and Rectal Surgery 02/13/16 documented as of this encounter
--- OUTSIDE RECORDS SUMMARY | 2025-04-28 20:15 | XMS_ITS | Clinical Summary ---
Author Organization Healthcare Address [address] [phone] Care Team Providers Care Autism Teacher Name Role Phone Hector Gomez MD Primary Care Provider [phone] Allergies Active Allergy Reactions Criticality Noted Date [...] mouth 1 (one) time each day. Active Social History Tobacco Use Types Packs/Day Years [...] Description 07/04/2025 11:00 AM EST Office Visit [facility] [address] [place] [address] Gabby Trinidad Health Maintenance Due Date Last Done Comments Dental X-Ray: Full Mouth 1944 [facility]-Bone Density Scan 1944 [facility]-Depression Screening 1944 [facility]-Medicare Annual Wellness (AWV) 1944 [facility]-Infant/Child/Adol SDOH Screenings 1944 [facility]- SDOH Screenings 1962 [facility]-Adult SDOH Screenings 1962 [facility]-Zoster Vaccines (1 of 2) 1994 [facility]-RSV Vaccine: 60+ Years or (1 - 1-dose 75+ series) 2019 [id number] Vaccine ( - 2024- season) 2025 06/30/2021, 09/15/2020, 08/18/2020 [facility]-Influenza Vaccine (#1) 02/25/202507/18, [...] EDT Dental calculus from Last 3 Months or Most Recently Relevant to Health Maintenance Insurance [employer] MEDICARE Care Teams Autism Teacher Relationship Specialty Start Date End Date Hector Gomez MD [address] [place] [address] PCP - General 11/07/20
--- OUTSIDE RECORDS SUMMARY | 2025-04-28 20:15 | XMS_ITS | Encounter Summary ---
Author Organization Healthcare Address [address] [id number] Care Team Providers Care Policyholder Information Clerk Name Role Phone Hector Gomez MD Primary Care Provider [phone] Encounter Details Date Type Department Care Team (Late st Contact Info) Description 11/12/2019 Abstract [facility] [address] [place] [address] Dental, Provider, DDS [facility] [place] [id number] Social History Tobacco Use Types Packs/Day Years [...] Description 07/04/2025 11:00 AM EST Office Visit [facility] Adult Dentistry [address] [place] [address] Amos Gabby Pina documented as of this encounter Visit Diagnoses Not on filedocumented in this encounter Care Teams Policyholder Information Clerk Relationship Specialty Start Date End Date Hector Gomez MD [address] [place], [place] [address] PCP - General 11/07/20 documented as of this encounter
--- OUTSIDE RECORDS SUMMARY | 2025-04-28 20:15 | XMS_ITS | Encounter Summary ---
Author Organization Healthcare Address [address] [phone] Care Team Providers Care Oracle Sql Developer Name Role Phone Hector Gomez MD Primary Care Provider [phone] Encounter Details Date Type Department Care Team (Late st Contact Info) Description 11/12/2019 Abstract [facility] [address] [place] [address] Dental, Provider, DDS [facility] [place] [id number] Social History Tobacco Use Types Packs/Day Years [...] Description 07/04/2025 11:00 AM EST Office Visit [facility] Adult Dentistry [address] [place] [address] Amos Gabby Pina documented as of this encounter Visit Diagnoses Not on filedocumented in this encounter Care Teams Oracle Sql Developer Relationship Specialty Start Date End Date Hector Gomez MD [address] [place], [place] [address] PCP - General 11/07/20 documented as of this encounter
== END ==
LOC: SL 20:13
PROVIDERS: PCP Family Medicine; Visit Provider Specialist
DX: G47.30 Sleep apnea, unspecified (principal)

== ENCOUNTER 2025-06-18 09:55 | Outpatient (CLI) | payer MEDICARE, SELFPAY ==
--- OUTSIDE RECORDS SUMMARY | 2025-06-07 10:15 | XMS_ITS | Encounter Summary ---
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 Feels fineat this time Continue PFAT's 3-4 times a day OU 08/2024 D/w pt other dry eye agents other than Restasis. Will Try Cequa BID OU. Gave sample and sending to [facility]. Pt hasn't been using Restasis continuously so we will monitor without Restasis at this time. Can add back in the future if having problems. 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 Subjective: Patient ID: Pippa Alcantar is a 80 y.o. female. Chief Complaint Patient presents with Dilated Fundus Exam No results found for: HGBA1C HPI Pt is here for DFE/Dry eye f/u Pt states her vision is doing fine, no complaints today Pt is using Refresh PRN OU Pt denies any flashes, floaters, double vision, headaches and eye pain Past Medical History[1] Surgical History[2] Family History[3] Social History Socioeconomic History Marital status: Spouse name: Not on file Number of children: Not on file Years of education: Not on file Highest education level: Not on file Occupational History Not on file Tobacco Use Smoking status: Former Current packs/day: 0.00 Types: Cigarettes Quit date: 06/27/1972 Years since quittin.9 Smokeless tobacco: Never Vaping Use Vaping status: Never Used Substance and Sexual Activity Alcohol use: Yes Comment: social Drug use: No Sexual activity: Not on file Other Topics Concern Not on file Social History Narrative Not on file Social Drivers of Health Financial Resource Strain: Low Risk (04/05/2022) Received from [facility] Financial Resource Strain In the past 12 months, have you experienced difficulty paying for basic needs like housing, utilities, food, transportation, or clothing: Not on file Are there any financial concerns that limit you from seeing the doctor?: Not on file Food Insecurity: No Food Insecurity (09/20/2022) Received from [facility] Yearly Questionnaire Do you need any assistance with obtaining housing, meals, medication, transportation or medical equipment?: No Assistance needed for:: Not on file Transportation Needs: No Transportation Needs (09/20/2022) Received from [facility] Yearly Questionnaire Do you need any assistance with obtaining housing, meals, medication, transportation or medical equipment?: No Assistance needed for:: Not on file Physical Activity: Not on file Stress: Not on file Social Connections: Low Risk (04/05/2022) Received from [facility] Social Connections How often do you feel that you lack companionship?: Not on file How often do you feel left out?: Not on file How often to you feel isolated from others?: Not on file Intimate Partner Violence: Not on file Housing Stability: Low Risk (09/20/2022) Received from [facility] Yearly Questionnaire Do you need any assistance with obtaining housing, meals, medication, transportation or medical equipment?: No Assistance needed for:: Not on file ROS Positive for: Eyes Negative for: Constitutional, Gastrointestinal, Neurological, Skin, Genitourinary, Musculoskeletal,HENT, Endocrine, Cardiovascular, Respiratory, Psychiatric, Allergic/Imm, Heme/Lymph Current Medications[4] Objective: Eye Exam: Base Eye Exam Visual Acuity (Snellen - Linear) Right Left Dist cc 20/25-1 20/20-2 Correction: Glasses Tonometry (I-care, 10:19 AM) Right Left Pressure 9 10 Pupils Pupils APD Right PERRL None Left PERRL None Visual Tomlinson Right Left Full Full Extraocular Movement Right Left Full Full Neuro/Psych Oriented x3: Yes Mood/Affect: Normal Dilation Both eyes: 1.0% Mydriacyl, 2.5% Phenylephrine @ 10:34 AM Edited by: Keenan Crowe; Maggie Whitfield Scribe Slit Lamp and Fundus Exam External Exam Right Left External Normal Normal Slit Lamp Exam Right Left Lids/Lashes 1+MGD, no punctal reflux 2+MGD, LLL 2+Laxity, No punctal reflux Conjunctiva/Sclera 2+ Papilla, Pinguecula, 1+diffuse hyperemia, 2+ Follicles 2+ Papilla, Pinguecula, 1+diffuse hyperemia, 2+ Follicles Cornea Decreased tear meniscus, no epi defects, trace PEE 2+ scattered PEE Anterior Chamber Deep and quiet Deep and quiet Iris Normal Normal Lens PCIOL, 1.5+ PCO PCIOL, Open PC Fundus Exam Right Left Vitreous PVD PVD Disc Normal Normal C/D Ratio Vertical 0.3 0.3 C/D Ratio Horizontal 0.3 Macula Normal Normal Vessels Normal Normal Periphery Normal Normal Edited by: Maggie Whitfield Scribe Lacrimal Exam Schirmers Right Left 12 mm 10 mm Anesthesia: Yes Edited by: Keenan Crowe Refraction Wearing Rx Sphere Cylinder [place] Add Right -1.00 +0.75 159 +2.50 Left -1.25 +0.50 180 +2.50 Type: Bifocal Edited by: Keenan Crowe Procedure: Assessment and Plan: (see top of note for details) Note written by Maggie Whitfield, OSC acting as scribe for Sergio Wang M.D. -- I have reviewed this note and it accurately reflects my work and decisions made during this visit. Sergio Wang M.D. -- [1] Past Medical History: Diagnosis Date Arthritis CAD (coronary artery disease) Crohn's disease (HCC) Heartburn Hyperlipidemia Irritable bowel syndrome Chrohn's Melkersson-Nunu syndrome Multiple food allergies Seasonal allergies Thyroid disease Urinary incontinence [2] Past Surgical History: Procedure Laterality Date CARDIAC CATHETERIZATION CATARACT REMOVAL CATARACT REMOVAL Right 05/03/2017 Right eye CATARACT EXTRACTION WITH PHACOEMULSIFICATION AND INTRAOCULAR LENS; Surgeon: Ricky Montiel MD; [facility]; Service: Ophthalmology CHOLECYSTECTOMY EYE SURGERY Left cataract with IOL EYE SURGERY 01/18/2012 YAG LASER POSTERIOR CAPSULOTOMY LEFT EYE ; Surgeon: Paul Aiken MD; Location: [facility]; Service: Ophthalmology FOOT SURGERY left HAND SURGERY carpal tunnel HYSTERECTOMY [3] Family History Problem Relation Age of Onset Cancer Mother Heart Disease Mother High Blood Pressure Mother Cancer Father Cancer Sister Heart Disease Sister High Blood Pressure Sister Anesth Problems Neg Hx Glaucoma Neg Hx Macular Degen Neg Hx Retinal Detachment Neg Hx Diabetes Neg Hx Blindness Neg Hx [4] Current Outpatient Medications: aspirin 81 mg Oral Tablet, Chewable, Take 81 mg by mouth daily., Disp: , Rfl: atorvastatin (LIPITOR) 10 mg Oral Tablet, Take 10 mg by mouth daily., Disp: , Rfl: cycloSPORINE (CEQUA) 0.09 % Opht Dropperette, Place 1 Drop into both eyes 2 times daily., Disp: 60 Each, Rfl: 1 diltiazem 120 mg Oral Capsule, Sust. Release 24 hr, Take 120 mg by mouth daily., Disp: , Rfl: fluticasone (FLONASE) 50 mcg/actuation Nasl Hensley, Suspension, 1 Hensley by Nasal route daily., Disp:, Rfl: hydroCHLOROthiazide (MICROZIDE) 12.5 mg Oral Capsule, Take 12.5 mg by mouth daily., Disp: , Rfl: INFLIXIMAB (REMICADE IV), Inject into the vein. 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 , Disp: , Rfl: loratadine (CLARITIN) 10 mg tablet, Take 10 mg by mouth daily. As needed , Disp: , Rfl: losartan (COZAAR) 50 mg Oral Tablet, Take 50 mg by mouth 2 times daily., Disp: , Rfl: mesalamine (LIALDA) 1.2 gram Oral Tablet, Delayed Release (E.C.), Take 1,200 mg by mouth daily (with breakfast)., Disp: , Rfl: methylPREDNISolone (MEDROL) 4 mg Oral Tablet, Take 4 mg by mouth daily., Disp: , Rfl: polyethylene glycol (GLYCOLAX, MIRALAX) 17 gram packet, Take 17 g by mouth daily. 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 Allergic conjunctivitis of both eyes Other chronic allergic conjunctivitis PVD (posterior vitreous detachment), both eyes Vitreous degeneration H/O: stroke Transient ischemic attack (TIA), and cerebral infarction without residual deficits documented in this encounter Discontinued Medications Medication Sig Discontinue Reason Start Date End Da te olopatadine (PATADAY) 0.2 % Opht DropsIndications:Allergic conjunctivitis of both eyes One drop daily OU as needed for itching/burning DELETE-Therapy completed 10/01/2015 06/07/2025 olopatadine (PATANOL) 0.1 % Opht DropsIndications:Allergic conjunctivitis of both eyes,Skin irritation INSTILL 1 DROP INTO BOTH EYES TWICE A DAY DELETE-Therapy completed 02/23/2021 06/07/2025 documented as of this encounter Additional Health Concerns Assessment Noted Time A fall risk assessment has been complete d for the patient 05/11/2019 1:06 PM EST documented as of this encounter Eye Exam Visual Acuity (Snellen - Linear) Right eye Left eye Dist cc 20/25-1 20/20-2 Correction: Glasses Tonometry (I-care, 10:19 AM) Right eye Left eye Pressure 9 10 Pupils Pupils APD Right eye PERRL None Left eye PERRL None Visual Tomlinson Right eye Left eye Full Full Extraocular Movement Right eye Left eye Full Full Neuro/Psych Oriented x3: Yes Mood/Affect: Normal Dilation Both eyes: 1.0% Mydriacyl, 2 .5% Phenylephrine @ 10:34 AM External Exam Right eye Left eye External Normal Normal Slit Lamp Exam Right eye Left eye Lids/Lashes 1+MGD, no punctal reflux 2+MGD, LLL 2+Laxity, No punctal reflux Conjunctiva/Sclera 2+ Papilla, Pinguecu la, 1+diffuse hyperemia, 2+ Follicles 2+ Papilla, Pinguecula, 1+diffuse hyperemia, 2+ Follicles Cornea Decreased tear menis cus, no epi defects, trace PEE 2+ scattered PEE Anterior Chamber Deep and quiet Deep and quiet Iris Normal Normal Lens PCIOL, 1.5+ PCO PCIOL, Open PC Fundus Exam Right eye Left eye Posterior Vitreous PVD PVD Disc Normal Normal C/D Ratio Vertical 0.3 0.3 C/D Ratio Horizontal 0.3 Macula Normal Normal Vessels Normal Normal Periphery Normal Normal Schirmers Right eye Left eye 12 mm 10 mm Anesthesia: Yes Wearing Rx Sphere Cylinder [place] Add Right eye -1.00 +0.75 159 +2.50 Left eye -1.25 +0.50 180 +2.50 Type: Bifocal Care Teams Marine Steam Fitter Relationship Specialty Start Date End Date Hector Gomez MD [facility] [place] [address] PCP - General Family Medicine 01/28/17 documented as of this encounter
--- OUTSIDE RECORDS SUMMARY | 2025-06-12 10:11 | XMS_ITS | Encounter Summary ---
[facility] Address [address] [place] [address] Care Team Providers Care Indian Trader Name Role Phone Ricky Denney MD Primary Care Provider [phone] Reason for Visit * Episode Based Medications (Routine) - Authorized Specialty Diagnoses / Procedures Referred By Contac t Referred To Contact Diagnoses Crohn's disease without complication, unspecified gastrointestinal tract location Procedures AK INFLIXIMAB NOT BIOSIMIL 10MG Darin Lambert, PharmD [address] [place] [address] Phone: tel: Referral ID Status Reason Start Date Expiration Date V isits Requested Visits Authorized [id number] Authorized 11/20/2024 11/20/2025 1 4 Encounter Details Date Type Department Care Team (Latest Contact Info) Description 06/12/2025 10:11 AM EST - 06/12/2025 11:59 PM EST Hospital Encounter [facility] OUTPATIENT ONCOLOGY [address] [place] [address] Ricky Denney MD [address] [place] [address] Crohn's disease without complication, unspecified gastrointestinal tract [...] Sign Reading Time Taken Comments Blood Pressure 144/73 06/12/2025 10:24 AM EST Pulse 62 06/12/2025 10:24 AM EST Temperature 36.1 C (96.9 F) 06/12/2025 10:24 AM EST Respiratory Rate 16 06/12/2025 10:24 AM EST Oxygen Saturation - - Inhaled Oxygen Concentration - - Weight 68.9 kg (152 lb) 06/12/2025 10:24 AM EST Height 149.9 cm (4' 11 ) 06/12/2025 10:24 AM EST Body Mass Index 30.7 06/12/2025 10:24 AM EST documented in this encounter Functional Status * Safety Question Answer Date of Assessment Author Safety [facility] 06/12/2025 10:30 AM Raquel aPtel RN * Musculoskeletal Question Answer Date of Assessment Author Musculoskeletal [facility] 06/12/2025 10:30 AM E Raquel Lau RN * Skin Question Answer Date of Assessment Author Skin [facility] 06/12/2025 10:30 AM Raquel Patel RN * Safety Question Answer Date of Assessment Author Safety [facility] 06/12/2025 10:30 AM Raquel Patel RN * Musculoskeletal Question Answer Date of Assessment Author Musculoskeletal [facility] 06/12/2025 10:30 AM E Raquel Lau RN * Skin Question Answer Date of Assessment Author Skin [facility] 06/12/2025 10:30 AM Raquel Patel RN * Cognitive Question Answer Date of Assessment Author Cognitive/Neuro/Behavioral [facility] 06/12/2025 10:30 AM Caryn Garcia RN documented as of this encounter Mental Status * Coping/Psychosocial Question Answer Entry Date Author Observed Emotional State calm 06/12/2025 10:30 AM Raquel Garcia RN * Cognitive Question Answer Entry Date Author Cognitive/Neuro/Behavioral [facility] 06/12/2025 10:30 AM Caryn Garcia RN documented in this encounter Medications at Time of Discharge aspirin 325 MG tablet Take 1 tablet [...] by office. Questions call 4000 mL 03/01/2025 potassium chloride (MICRO-K) 10 MEQ CR capsule Take 1 capsule by mouth Every 12 (Twelve) Hours. 07/05/2024 Restasis 0.05 % ophthalmic emulsion 04/07/2021 vitamin B-12 (CYANOCOBALAMIN) 1000 MCG tablet Take 1 tablet by mouth Daily. 11/07/2024 documented as of this encounter Plan of Treatment Upcoming Encounters Date Type Department Care Team (Late st Contact Info) Description 08/07/2025 1:00 PM EST Infusion [facility] OUTPATIENT ONCOLOGY [place] [address] [place] [address] documented as of this encounter Visit Diagnoses Diagnosis Crohn's disease without complication, unspecified gastrointestinal tract location- Primary documented in this encounter Administered Medications Inactive Administered Medications - up to 3 most recent administrations Medication Order MAR Action Action Date Dose Rate Site acetaminophen (TYLENOL) tablet 1,000 mg 1,000 mg, Oral, Once, On Tue06/12/25 at 1032, For 1 dose, Based on patient request [...] without complication, unspecified gastrointestinal tract location Given 06/12/2025 10:37 AM EST 1,000 mg cetirizine (zyrTEC) tablet 10 mg 10 mg, Oral, Once, On Tue06/12/25 at 1032, For 1 doseIndications:Crohn's disease without complication, unspecified gastrointestinal tract location Given 06/12/2025 10:37 AM EST 10 mg inFLIXimab (REMICADE) 700 mg in sodium chloride 0.9 % 250 mL IVPB 700 mg, Intravenous, Administer over 120 Minutes, Once, On Tue06/12/25 at 1102, For 1 dose, Use an in-line, sterile, non-pyrogenic, low protein-binding filter with 1.2 micron or smaller pore size. Biosimilar Use Indication: defaulted medication has been selected as insurance preferred product. Caution: Look alike/sound alike drug alert . Infuse with an in-line low protein binding filter (<1.2 micron)Indications:Crohn's disease without complication, unspecified gastrointestinal tract location New Bag 06/12/2025 10:51 AM EST 700 mg 125 mL/hr sodium chloride 0.9 % infusion 20 mL/hr, Intravenous, Once, On Tue06/12/25 at 1032, For 1 doseIndications:Crohn's disease without complication, unspecified gastrointestinal tract location New Bag 06/12/2025 10:51 AM EST 20 mL/hr 20 mL/hr documented in this encounter Care Teams Indian Trader Relationship Specialty Start Date End Date Ricky Denney MD [address] [place] [address] PCP - General Colon and Rectal Surgery 02/13/16 documented as of this encounter
[2025-06-18 14:47] LABS: Hematocrit 39.0 % (37.0-47.0); Hemoglobin 12.4 g/dL (12.2-16.2); Immature Granulocytes % 0.1 %; Mean Corpuscular HGB Conc 31.8 g/dL (31.8-35.4); Mean Corpuscular Hemoglobin 29.0 pg (27.0-31.2); Mean Corpuscular Volume 91.3 fl (81-99); Nucleated Red Blood Cells % 0 %; Platelet Count 476 K/mm3 (142-424); Red Blood Count 4.27 M/mm3 (4.20-5.40); Red Cell Distribution Width-SD 44.4 fL; White Blood Count 7.2 K/mm3 (4.8-10.8)
[2025-06-18 15:21] LABS: Chloride 103 mmol/L (98-107); Potassium 3.9 mmoL/L (3.5-5.1); Sodium 139 mmol/L (136-145)
[2025-06-18 15:24] LABS: Anion Gap 12.9 mEq/L (5-15); Blood Urea Nitrogen 18 mg/dl (7-17); Calcium 10.4 mg/dl (8.4-10.2); Carbon Dioxide 27 mmol/L (22.0-30.0); Creatinine,Serum 1.00 mg/dl (0.52-1.04); Estimated Glomerular Filt Rate 53 ml/min (>60); GFR (African American) 64 ML/MIN (>60); Glucose 88 mg/dl (74-100)
--- OUTSIDE RECORDS SUMMARY | 2025-06-21 09:57 | XMS_ITS | Clinical Summary ---
Author Organization [facility] Address [address] [place] [address] Care Team Providers Care Private Household Worker Name Role Phone Hector Gomez MD Primary Care Provider [phone] Source Comments This information has been disclosed [...] therelease of HIV test results or diagnoses. [id number] Allergies Active Allergy Reactions Criticality Noted Date Comments Egg Derived 12/02/2013 Medications tycoiaku-utfa-n in-folic acid (CENTRUM) 3,500-18-0.4 unit-mg-mg Chew Chew [...] Years Used Date Smoking Tobacco: Former Cigarettes 0 Q uit: 12/02/1980 Smokeless Tobacco: Never Tobacco [...] Advance Directives For more information, please contact: [phone] * Full Code (Latest Code Status on File) Date Activated Date Inactivated Comments 07/05/2022 8:45 PM 07/07/2022 10:06 PM Care Teams Private Household Worker Relationship Specialty Start Date End Date Hector Gomez MD [address] [facility] [address] [facility] [address] [place] [phone] (Work) PCP - General Family Medicine 07/06/22
--- OUTSIDE RECORDS SUMMARY | 2025-06-21 09:57 | XMS_ITS | Clinical Summary ---
Author Organization [facility] [facility] Address [address] [place] [address] Phone Care Team Providers Care Vessel Operator Name Role Phone Unavailable Unavailable Conditions or Problems No information available. Medications No information available. Medications Administered No information available. Allergies, Adverse Reactions, Alerts No information available. Results No information available. Plan of Care No information available. Procedures No information available. Vital Signs No information available. Immunizations No information available. Advance Directives No information available.
--- OUTSIDE RECORDS SUMMARY | 2025-06-21 09:58 | XMS_ITS | Encounter Summary ---
Author Organization [facility] Address [address] [id number] Care Team Providers Care Maintenance Technician 2Nd Shift Name Role Phone Hector Gomez MD Primary Care Provider Encounter Details Date Type Department Care Team (Late st Contact Info) Description 11/12/2019 Abstract [facility] [address] [place] [address] Dental, Provider, DDS [place] [address] Social History Tobacco Use Types Packs/Day Years [...] Description 07/04/2025 11:00 AM EST Office Visit [facility] [address] [place] [address] Sania Trinidadcy documented as of this encounter Visit Diagnoses Not on filedocumented in this encounter Care Teams Maintenance Technician 2Nd Shift Relationship Specialty Start Date End Date Hector Gomez MD [facility] [address] PCP - General 11/07/20 documented as of this encounter
--- OUTSIDE RECORDS SUMMARY | 2025-06-21 09:58 | XMS_ITS | Encounter Summary ---
Author Organization [facility] Address [address] [id number] Care Team Providers Care Tucking Machine Operator Name Role Phone Hector Gomez MD Primary Care Provider [phone] Encounter Details Date Type Department Care Team (Late st Contact Info) Description 11/12/2019 Abstract [facility] [address] [place] [address] Dental, Provider, DDS [facility] [place] [address] Social History Tobacco Use Types [...] Description 07/04/2025 11:00 AM EST Office Visit [facility] [address] [place] [address] Sania Trinidadcy documented as of this encounter Visit Diagnoses Not on filedocumented in this encounter Care Teams Tucking Machine Operator Relationship Specialty Start Date End Date Hector Gomez MD [facility] [address] PCP - General 11/07/20 documented as of this encounter
--- OUTSIDE RECORDS SUMMARY | 2025-06-21 09:58 | XMS_ITS | Clinical Summary ---
Author Organization [facility] Address [address] [place] [address] Care Team Providers Care Internet Application Developer Name Role Phone Ricky Denney MD Primary Care Provider [phone] Allergies No known active allergies Medications levothyroxine [...] Encounters Date Type Department Care Team Description 06/12/2025 10:11 AM EST - 06/12/2025 11:59 PM EST Hospital Encounter [facility] OUTPATIENT ONCOLOGY [address] [place] [address] Ricky Denney MD Crohn's disease without complication, unspecified gastrointestinal tract location (Primary Dx) Discharge Disposition: Home or Self Care 06/12/2025 Travel 04/10/2025 11:52 AM EDT - 04/10/2025 11:59 PM EDT Hospital Encounter [facility] OUTPATIENT ONCOLOGY [address] [facility] [place] [address] Ricky Denney MD Crohn's disease without complication, unspecified gastrointestinal tract location (Primary Dx) Discharge Disposition: Home or Self Care 04/10/2025 Travel from Last 3 Months Social History [...] 16 06/12/2025 10:24 AM EST Oxygen Saturation 98% 04/05/2023 1:49 PM EDT Inhaled Oxygen Concentration - - Weight 68.9 kg (152 lb) 06/12/2025 10:24 AM EST Height 149.9 cm (4' 11 ) 06/12/2025 10:24 AM EST Body Mass Index 30.7 06/12/2025 10:24 AM EST Plan of Treatment Upcoming Encounters Date Type Department Care Team (Late st Contact Info) Description 08/07/2025 1:00 PM EST Infusion [facility] OUTPATIENT ONCOLOGY [place] [address] [place] [address] Health Maintenance Due Date Last Done Comments [...] - COLONOSCOPY 03/04/2025 from Last 3 Months or Most Recently Relevant to Health Maintenance Results * Colonoscopy, Scan (03/04/2025) Marcos Potts MD CHART REVIEW TABS Herlinda l Result from Last 3 Months or Most Recently Relevant to Health Maintenance Insurance [employer] PPO Care Teams Internet Application Developer Relationship Specialty Start Date End Date JumanaRicky MD [address] [place], [place] [address] PCP - General Colon and Rectal Surgery 02/13/16
--- OUTSIDE RECORDS SUMMARY | 2025-06-21 09:58 | XMS_ITS | Clinical Summary ---
Author Organization [facility] Address [facility] [address] [facility] [place] [address] Phone Care Team Providers Care Breakfast Supervisor Name Role Phone Hector Gomez MD Primary Care Provider [phone] Allergies Active Allergy Reactions Criticality Noted Date Comments No Known Drug Allergies Other (See Comments) 04/28/2017 No allergies to meds Spice Flavor Swelling 04/28/2017 Pepper, sesame, coconut and oregano Medications levothyroxine (SYNTHROID) 112 mcg Take 112 mcg by mouth daily utility driver. Active INFLIXIMAB (REMICADE IV) Inject into the vein. Every 8 weeks Active polyethylene glycol (GLYCOLAX, MIRALAX) 17 gram packet Take 17 g by mouth daily. Active loratadine (CLARITIN) 10 mg tablet Take 10 mg by mouth daily. As needed Active fluticasone (FLONASE) 50 mcg/actuation Nasl [place], Suspension 1 [place] by Nasal route daily. Active mesalamine (LIALDA) 1.2 gram Oral Tablet, Delayed Release (E.C.) Take 1,200 mg by mouth daily (with breakfast). Active aspirin 81 mg Oral Tablet, Chewable Take [...] (ZOLOFT) 50 mg Oral Tablet 50 mg. 0 Active cycloSPORINE (CEQUA) 0.09 % Opht DropperetteIndicat ions:Keratitis sicca Place 1 Drop into both eyes 2 times daily. 60 Each 1 5 Active olopatadine (PATADAY) 0.2 % Opht DropsIndications:A llergic conjunctivitis of both eyes One drop daily OU as needed for itching/bur eddie 1 Bottle 4 6 06/07/20 25 Discontin ued(DELET E-Therapy completed ) olopatadine (PATANOL) 0.1 % Opht DropsIndications:A llergic conjunctivitis of both eyes,Skin irritation INSTILL 1 DROP INTO BOTH EYES TWICE A DAY 5 mL 1 1 06/07/20 25 Discontin ued(DELET E-Therapy completed ) Active Problems No known active problems Resolved Problems Problem Noted Date Diagnosed Date Resolved Date Nuclear sclerosis of right eye 04/20/2017 05/23/2017 Overview (04/20/2017): Added automatically from request for surgery [id number] Secondary cataract, left eye 01/18/2012 01/18/2012 Encounters Date Type Department Care Team Description 06/07/2025 10:15 AM EST Office Visit [facility] [address] [place] [address] Sergio Wang MD PCO (posterior capsular opacification), right (Primary Dx); Pseudophakia of both eyes; S/P YAG capsulotomy, left; Keratitis sicca; 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; Allergic conjunctivitis of both eyes; PVD (posterior vitreous detachment), both eyes; H/O: stroke from Last 3 Months Surgical [...] INTRAOCULAR LENS; Surgeon: Ricky Montiel MD; Location: [facility]; Service: Ophthalmology Medical devices from this surgery [...] 04/28/2017 12:22 PM EDT Plan of Treatment Health Maintenance Due Date Last Done Comments COVID-19 Vaccine (#1) 1945 Wellness Exam Medicare 1948 DTaP/TDaP/Td (1 - Tdap) 1963 Pneumococcal Vaccine [...] this topic Medical Devices Implanted Type Area Professor Of Counseling Device Identifier Shelf Expiration Date Model / Serial / Lot Lens Intraocular Preloaded 20.0 Diopter - [id number] Implanted:Qty: 1 on 05/03/2017 by Ricky Montiel MD at [facility] Right: Eye [facility] 09/25/2019 [id number] / [id number] / Insurance MEDICARE PPO MR MEDICARE PPO MR MEDICARE PPO MR Care Teams Breakfast Supervisor Relationship Specialty Start Date End Date Hector Gomez MD [facility] [address] [place] [address] PCP - General Family Medicine 01/28/17
--- OUTSIDE RECORDS SUMMARY | 2025-06-21 09:58 | XMS_ITS | Clinical Summary ---
Author Organization Healthcare Address [address] [id number] Care Team Providers Care Filler Block Inserter Remover Name Role Phone Hector Gomez MD Primary Care Provider Allergies Active Allergy Reactions Criticality Noted Date [...] Visit [facility] [address] [place] [address] [facility] Maintenance Due Date Last Done Comments Dental X-Ray: Full Mouth 1944 [facility]-Bone Density Scan 1944 [facility]-Depression Screening 1944 [facility]-Medicare Annual Wellness (AWV) 1944 [facility]-Infant/Child/Adol SDOH Screenings 1944 [facility]- SDOH Screenings 1962 [facility]-Adult SDOH Screenings 1962 [facility]-Zoster Vaccines (1 of 2) 1994 [facility]-RSV Vaccine: 60+ Years or (1 - 1-dose 75+ series) 2019 [id number] Vaccine ( - 2024- season) 2025 06/30/2021, 09/15/2020, 08/18/2020 [facility]-Influenza Vaccine (#1) 02/25/202507/18, 04/13/2022, 04/17/2021, Additional history exists Dental Oral Exam 05/27/2025 11/23/2024, 06/2023, 09/16/2023 Dental Prophylaxis 05/27/2025 11/23/2024, 1 , 09/16/2023 Dental X-Ray: Bitewings 11/24/2025 11/23/2024, 09/15 [facility]-DTaP,Tdap,and Td Vaccines (2 - Td or Tdap) 07/04/2027 07/04/2017 [facility]-Pneumococcal Vaccine: 50+ Years Completed 07/18/2024, 04/17/2021 HPV Vaccines (No Doses Required) Completed [facility]-HIB Vaccines Aged Out No longer e [...] Health Maintenance Insurance UHC MEDICARE Care Teams Filler Block Inserter Remover Relationship Specialty Start Date End Date Hector Gomez MD [facility] [address] PCP - General 11/07/20
--- OUTSIDE RECORDS SUMMARY | 2025-06-21 09:58 | XMS_ITS | Encounter Summary ---
Author Organization [facility] Address [address] [place] [address] Care Team Providers Care Pit Worker Power Shovel Name Role Phone Ricky Denney MD Primary Care Provider [phone] Encounter Details Date Type Department Care Team (Latest Contact Info) Description 06/12/2025 Travel Social History Tobacco Use Types Packs/Day [...] Info) Description 08/07/2025 1:00 PM EST Infusion [facility] [address] [address] [place] [address] documented as of this encounter Visit Diagnoses Not on filedocumented in this encounter Care Teams Pit Worker Power Shovel Relationship Specialty Start Date End Date Ricky Denney MD [address] [place] [address] PCP - General Colon and Rectal Surgery 02/13/16 documented as of this encounter
--- OUTSIDE RECORDS SUMMARY | 2025-06-21 09:58 | XMS_ITS | Encounter Summary ---
Author Organization Healthcare Address [address] [id number] Care Team Providers Care Apigee Developer Name Role Phone Hector Gomez MD Primary Care Provider [phone] Encounter Details Date Type Department Care Team (Late st Contact Info) Description 11/12/2019 Abstract [facility] [address] [place] [address] Dental, Provider, DDS [facility] [place] [address] Social History Tobacco Use Types [...] Description 07/04/2025 11:00 AM EST Office Visit [facility] [address] [place] [address] Sania Triniddacy documented as of this encounter Visit Diagnoses Not on filedocumented in this encounter Care Teams Apigee Developer Relationship Specialty Start Date End Date Hector Gomez MD [facility] [address] PCP - General 11/07/20 documented as of this encounter
== END 2025-06-18 23:59 | disposition home or self-care (01) ==
LOC: LAB.DROPOF 06-21 09:55
PROVIDERS: PCP Family Medicine; Visit Provider Family Medicine
DX: D64.9 Anemia, unspecified (principal); I10 Essential (primary) hypertension
CPT/HCPCS: 80048; 85025